=== PATIENT | female | born 1945 | race Caucasian/White ===

== ENCOUNTER 2022-10-06 13:57 | Outpatient (OUT) | payer OTHER, SELFPAY ==
--- NOTE | 2022-10-06 14:17 | XR_ITS ---
The [address] [address] Patient Name: DELFINA GONZALEZ MRN: [id number] date: 1945 Sex: F Assigned Patient Location: LAB Current Patient Location: LAB Accession/Order Number: [id number] Exam Date: 10/06/2022 14:30 Report Date: 10/06/2022 14:48 At the request of: SUZE JOHNSON Procedure: XR abdomen 1V EXAMINATION: XR abdomen 1V HISTORY: Constipation K59.00 alternating with diarrhea for 2 months COMPARISON: No relevant comparison available. FINDINGS: BOWEL GAS PATTERN: No abnormal dilation or deviation. Moderate stool burden. CALCIFICATIONS: None significant. OTHER: Negative. No abnormal gaseous collections. XR/XR abdomen 1V IMPRESSION: 1. No abnormal or suspicious findings to account for patient's symptoms. Electronically authenticated by: RAMEZ CHAN Date: 10/06/2022 14:48
[2022-10-06 16:06] LABS: Alanine Aminotransferase 31 U/L (14-59); Albumin Globulin Ratio 1.1; Albumin Level 3.7 g/dL (3.4-5.0); Alkaline Phosphatase 113 U/L (46-116); Aspartate Amino Transferase 23 U/L (15-37); BUN Creatinine Ratio 22.6; Bilirubin Total 1.3 mg/dL (0.2-1.0); Calcium 9.9 mg/dL (8.5-10.1); Carbon Dioxide 28.4 mmol/L (21.0-32.0); Chloride 105 mmol/L (98-107); Estimated GFR (African America >60 (>=60); Estimated GFR (Non-African Ame >60 (>=60); Globulin 3.5 g/dL; Glucose 95 mg/dL (74-106); Potassium 4.4 mmol/L (3.5-5.1); Sodium 140 mmol/L (136-145); Total Protein 7.2 g/dL (6.4-8.2)
== END 2022-10-06 13:58 | disposition home or self-care (01) ==
LOC: LAB 14:02
PROVIDERS: PCP Nurse Practitioner Family; Visit Provider Nurse Practitioner Family
DX: K59.00 Constipation, unspecified (principal)
CPT/HCPCS: 36415; 74018; 80053

== ENCOUNTER 2023-06-02 22:02 | Emergency (ER) | payer OTHER, SELFPAY ==
[2023-06-02 22:05] VITALS: BP 180/111; PULSE 86; RESP 22; TEMP 36.7; O2SAT 93; BMI 32.4
[2023-06-02 22:14] VITALS: BP 158/78
--- NOTE | 2023-06-02 22:16 | PC.NURSE ---
bilateral flank pain, L>R that started today, hx of kidney stones. No urinary sx. Admits to some nausea. Has not taken anything for the pain .
[2023-06-02 22:31] LABS: Bilirubin Urine NEGATIVE (NEGATIVE); Blood Urine LARGE (NEGATIVE); Clarity Urine CLEAR (CLEAR); Color Urine LT. YELLOW (YELLOW); Glucose Urine UA NEGATIVE (NEGATIVE); Ketones Urine NEGATIVE (NEGATIVE); Leukocyte Esterase Urine TRACE (NEGATIVE); Nitrite Urine POSITIVE (NEGATIVE); Protein Urine NEGATIVE (NEG/TRACE); Urobilinogen Urine 0.2 EU/dL (0.2-1.0)
[2023-06-02 22:32] LABS: Urine Microscopic Indicated YES
--- NOTE | 2023-06-02 22:40 | ED.FEMALEGU1 ---
HPI - Female Genitourinary General Chief complaint: Urogenital-Female Stated complaint: BACK PAIN IN KIDNEY AREA Time Seen by Provider: 06/02/23 22:16 Source: patient Mode of arrival: walk-in Limitations: no limitations History of Present Illness HPI Narrative: presents complaining of left CVA pain. States pain similar to past kidney stones. Nausea but no vomiting. No fever , dysuria or hematuria Related Data Home Medications ?Medication ?Instructions ?Recorded ?Confirmed aspirin 81 mg capsule 81 mg PO DAILY 06/02/23 06/02/23 cholecalciferol (vitamin D3) 125 125 mcg PO DAILY 06/02/23 06/02/23 mcg (5,000 unit) capsule diclofenac sodium 75 mg 75 mg PO Q12H 06/02/23 06/02/23 tablet,delayed release losartan 100 mg tablet 100 mg PO DAILY 06/02/23 06/02/23 metoprolol tartrate 25 mg tablet 25 mg PO Q12H 06/02/23 06/02/23 rosuvastatin 40 mg tablet 40 mg PO DAILY 06/02/23 06/02/23 Allergies Allergy/AdvReac Type Severity Reaction Status Date / Time No Known Drug Allergies Allergy Verified 06/02/23 22:09 Review of Systems ROS Status of ROS 10 or more systems reviewed and unremarkable except as noted in history and below Exam Constitutional Vital Signs, click to edit/add: Last Vital Signs Temp 98.0 F 06/02/23 22:05 Pulse 86 06/02/23 22:05 BP 158/78 H 06/02/23 22:14 Pulse Ox 93 L 06/02/23 22:05 O2 Del Method Room Air 06/02/23 22:05 Common normals: no apparent distress, average body habitus, oriented x3, no limitations, healthy appearing, alert and well nourished Eye Common normals: PERRL, EOMs intact bilaterally and conjunctivae normal Respiratory Common normals: normal respiratory effort, no retractions, no use of accessory muscles and clear to auscultation bilaterally Cardio Common normals: regular rate, regular rhythm, S1 normal heart sound and S2 normal heart sound GI Common normals: Normal to inspection, nondistended, normoactive bowel sounds present, soft to palpation and non-tender Back & Pelvis General back: CVA tenderness CVA tenderness: left Extremity Common normals: normal to inspection and full ROM Neuro Common normals: oriented x3, CN's II-XII intact bilaterally, moves all extremities and no focal motor deficits Psych Appearance: grossly normal Course Vital Signs Vital signs: Vital Signs Temperature 98.0 F 06/02/23 22:05 Pulse Rate 86 06/02/23 22:05 Blood Pressure 180/111 H 06/02/23 22:05 Pulse Oximetry 93 L 06/02/23 22:05 Oxygen Delivery Method Room Air 06/02/23 22:05 Temperature 98.0 F 06/02/23 22:05 Pulse Rate 86 06/02/23 22:05 Blood Pressure 158/78 H 06/02/23 22:14 Pulse Oximetry 93 L 06/02/23 22:05 Oxygen Delivery Method Room Air 06/02/23 22:05 MDM - Female Genitourinary MDM Narrative Medical decision making narrative: patient presents complaining of left CVA pain. No fever or urinary symptoms. CT with small 2mm left ureter stone. UA infected. Patient afebrile. Patient given dose of rocephin and discharged home with Bactrim ds and flomax. Informed of the findings and the importance of close follow up because she also has an infection. Advised to see her Urologist sunday. Return if increasing pain, fever Lab Data Labs: Lab Results 06/02/23 06/02/23 Range/Units 22:16 23:00 WBC 14.6 H (4.0-11.0) 10^3/uL RBC 4.40 (4.20-5.40) 10^6/uL Hgb 13.7 (12.0-16.0) g/dL Hct 43.2 (36.0-48.0) % MCV 98.2 (81.0-99.0) fL MCH 31.1 (26.7-34.0) pg MCHC 31.7 (29.9-35.2) g/dL RDW 12.8 (11.0-15.0) % Plt Count 178 (150-450) 10^3/uL MPV 9.8 (9.5-13.5) fL Seg Neuts % (Manual) 80.0 Band Neutrophils % 4.0 (0-5) % Lymphocytes % (Manual) 2.0 L (20.5-60.0) % Atypical Lymphs % (Man) 4.0 % Monocytes % (Manual) 10.0 (1.7-12.0) % Eosinophils % (Manual) 0.0 L (0.9-7.0) % Basophils % (Manual) 0.0 L (0.2-2.0) % Neutrophils # (Manual) 11.68 H (1.4-6.5) 10^3/uL Band Neutrophils # 0.6 H (0.0-0.3) 10^3/uL Lymphocytes # (Manual) 0.29 L (1.20-3.80) 10^3/uL Abs Atypical Lymphs Man 0.58 Monocytes # (Manual) 1.46 H (0.30-0.80) 10^3/uL Eosinophils # (Manual) 0.00 (0.00-0.70) 10^3/uL Basophils # (Manual) 0.00 (0.00-0.10) 10^3/uL Lactate 1.8 (0.4-2.0) mmol/L Urine Color Lt. yellow (YELLOW) Urine Clarity Clear (CLEAR) Urine pH 6.0 (5.0-9.0) Ur Specific [place] 1.020 (1.005-1.025) Urine Protein Negative (NEG/TRACE) mg/dL Urine Glucose (UA) Negative (NEGATIVE) mg/dL Urine Ketones Negative (NEGATIVE) mg/dL Urine Occult Blood Large A (NEGATIVE) Urine Nitrite Positive A (NEGATIVE) Urine Bilirubin Negative (NEGATIVE) Urine Urobilinogen 0.2 (0.2-1.0) EU/dL Ur Leukocyte Esterase Trace A (NEGATIVE) Urine RBC 50-75 A (0-2) #/HPF Urine WBC 10-20 A (NONE SEEN) #/HPF Ur Squamous Epith Cells Rare (NONE/RARE) #/LPF Urine Crystals None seen (None Seen) #/HPF Amorphous Sediment Rare Urine Bacteria Large A (NONE SEEN) #/HPF Urine Casts None seen (NONE SEEN) #/LPF Urine Mucus None seen (NONE SEEN) Ur Culture Indicated? Yes Imaging Data Chest x-ray: Radiologist's impression: ITS Impressions Abdomen/Pelvis CT 06/02/23 22:42 IMPRESSION: 1. There is a 2 mm calculus in the mid left ureter with mild left hydroureter and hydronephrosis. 2. Bilateral nonobstructive renal calculi. 3. Status post cholecystectomy. 4. Colonic diverticulosis without evidence of acute inflammation. 5. The appendix is not seen and could be surgically absent. 6. Urinary bladder wall thickening with a couple tiny foci of air. Please correlate with urinalysis for infection. Electronically authenticated by: [place] Date: 06/02/2023 23:39 Discharge Plan Discharge Stand Alone Forms: Portal Instructions Chief Complaint: Urogenital-Female Clinical Impression: Urinary tract infection, Kidney stone on left side Patient Disposition: Home, Self-Care Prescriptions / Home Meds: No Action losartan 100 mg tablet 100 mg PO DAILY metoprolol tartrate 25 mg tablet 25 mg PO Q12H rosuvastatin 40 mg tablet 40 mg PO DAILY diclofenac sodium 75 mg tablet,delayed release (DR/EC) 75 mg PO Q12H aspirin 81 mg capsule 81 mg PO DAILY cholecalciferol (vitamin D3) 125 mcg (5,000 unit) capsule 125 mcg PO DAILY Print Language: Slovak Instructions: Kidney Stones (ED), Urinary Tract Infection in Older Adults (ED) Additional Instructions: follow up with your urologist Sunday. Return to the ER if increasing pain, fever or nausea/vomiting Referrals: SUZE JOHNSON [Primary Care Provider] - 1 week Discharge Date/Time: 06/03/23 00:50
[2023-06-02 22:41] LABS: RBC Urine 50-75 #/HPF (0-2)
[2023-06-02 22:42] LABS: Bacteria Urine LARGE #/HPF (NONE SEEN); Crystals Seen? None Seen #/HPF (None Seen); Mucus Urine NONE SEEN (NONE SEEN); Squamous Epithelial Cell Urine RARE #/LPF (NONE/RARE)
--- NOTE | 2023-06-02 22:42 | CT_ITS ---
The [address] [address] Patient Name: DELFINA GONZALEZ MRN: [id number] date: 1945 Sex: F Assigned Patient Location: ER Current Patient Location: ER Accession/Order Number: [id number] Exam Date: 06/02/2023 23:04 Report Date: 06/02/2023 23:39 At the request of: RUTHY BRADLEY Procedure: CT abdomen pelvis wo con EXAM: CT abdomen pelvis wo con HISTORY: left renal colic COMPARISON: CT abdomen and pelvis examination dated 10/11/2020. TECHNIQUE: Noncontrast axial CT images through the abdomen and pelvis were obtained with coronal and sagittal reformats. Dose reduction techniques were achieved by using automated exposure control and/or adjustment of mA and/or kV according to patient size and/or use of iterative reconstruction technique. FINDINGS: There is bibasilar linear atelectasis and/or scarring. There is coronary artery disease. There is a small hiatal hernia. Abdomen: Please note that the sensitivity for detection of focal lesions or vascular disease is markedly reduced without intravenous contrast. The spleen is unremarkable. A hepatic cyst is noted. There is no intra or extrahepatic biliary duct dilatation. The gallbladder is surgically absent. There are bilateral nonobstructive renal calculi measuring up to 3 mm on the right. There is a 2 mm calculus in the mid left ureter with mild left hydroureter and hydronephrosis. There is colonic diverticulosis without evidence of acute inflammation. The appendix is not seen. Otherwise, the pancreas, adrenal glands, and bowel loops are unremarkable. There is no mesenteric or retroperitoneal lymphadenopathy. Pelvis: The bladder demonstrates mild wall thickening with a couple tiny foci of air. The rectum is unremarkable. There is no iliac or inguinal lymphadenopathy. The uterus is present. The left ovary appears within normal limits by CT and for the patient's age. The right ovary is not clearly seen. There is mild to moderate atherosclerotic disease. Bone windows show no aggressive osseous lesions. CT/CT abdomen pelvis wo con IMPRESSION: 1. There is a 2 mm calculus in the mid left ureter with mild left hydroureter and hydronephrosis. 2. Bilateral nonobstructive renal calculi. 3. Status post cholecystectomy. 4. Colonic diverticulosis without evidence of acute inflammation. 5. The appendix is not seen and could be surgically absent. 6. Urinary bladder wall thickening with a couple tiny foci of air. Please correlate with urinalysis for infection. Electronically authenticated by: [place] Date: 06/02/2023 23:39
[2023-06-02 22:43] LABS: Amorphous Sediment Urine RARE; Cast Seen? NONE SEEN #/LPF (NONE SEEN); Urine Culture Indicated YES
[2023-06-02 23:12] LABS: Hematocrit 43.2 % (36.0-48.0); Hemoglobin 13.7 g/dL (12.0-16.0); Mean Corpuscular HGB Conc 31.7 g/dL (29.9-35.2); Mean Corpuscular Hemoglobin 31.1 pg (26.7-34.0); Mean Corpuscular Volume 98.2 fL (81.0-99.0); Mean Platelet Volume 9.8 fL (9.5-13.5); Platelet Count 178 10^3/uL (150-450); Red Cell Distribution Width 12.8 % (11.0-15.0); White Blood Count 14.6 10^3/uL (4.0-11.0)
[2023-06-02 23:37] LABS: Band Neutrophils Absolute 0.6 10^3/uL (0.0-0.3); Lactate/Lactic Acid 1.8 mmol/L (0.4-2.0); Lymphocytes Absolute Manual 0.29 10^3/uL (1.20-3.80); Segmented Neut Absolute Manual 11.68 10^3/uL (1.4-6.5)
[2023-06-02] MEDS: ORPHENADRINE 60 MG/ 2 ML VIAL IV (23:37)
[2023-06-02] MEDS: KETOROLAC TROMETHAMINE 30 MG/ML VIAL IVP (23:37)
[2023-06-02] MEDS: 0.9 % SODIUM CHLORIDE 1,000 ML 999 ML IV (23:37)
[2023-06-02] MEDS: ONDANSETRON PF 4 MG/2 ML VIAL IV (23:37)
[2023-06-02 23:38] LABS: Atypical Lymphocytes Abs Man 0.58; Monocytes Absolute Manual 1.46 10^3/uL (0.30-0.80)
[2023-06-03] MEDS: CEFTRIAXONE 1,000 MG in 0.9 % SODIUM CHLORIDE 50 ML 100 MG IV (00:08)
[2023-06-03] MEDS: TAMSULOSIN HCL 0.4 MG CAPSULE 0.400000000000000022 MG PO (00:43)
== END 2023-06-03 00:50 | disposition home or self-care (01) ==
PROVIDERS: Emergency Provider Internal Medicine; PCP Nurse Practitioner Family
DX: N13.6 Pyonephrosis (principal); Z87.442 Personal history of urinary calculi; Z79.82 Long term (current) use of aspirin; Z79.899 Other long term (current) drug therapy
CPT/HCPCS: 36415; 74176; 81001; 83605; 85007; 85027; 87086; 87150; 87186; 96365; 96375; 99284

== ENCOUNTER 2023-08-09 08:34 | Outpatient (OUT) | payer OTHER, SELFPAY ==
[2023-08-09 09:38] LABS: Estimated Average Glucose 131 mg/dL; Glycohemoglobin A1C 6.2 % (4.5-6.2)
[2023-08-09 09:59] LABS: Alanine Aminotransferase 34 U/L (14-59); Albumin Globulin Ratio 1.1; Albumin Level 3.6 g/dL (3.4-5.0); Alkaline Phosphatase 127 U/L (46-116); Anion Gap 11.2; Aspartate Amino Transferase 22 U/L (15-37); BUN Creatinine Ratio 24.1; Bilirubin Total 1.8 mg/dL (0.2-1.0); Calcium 9.8 mg/dL (8.5-10.1); Chloride 106 mmol/L (98-107); Chol HDL Ratio 3.1; Cholesterol 135 mg/dL (<=200); Estimated GFR (African America >60 (>=60); Estimated GFR (Non-African Ame >60 (>=60); Free T3 1.62 pg/mL (2.18-3.98); Globulin 3.4 g/dL; Glucose 111 mg/dL (74-106); HDL Cholesterol 44 mg/dL (40-60); LDL Cholesterol Calculated 74.8 mg/dL; Potassium 4.2 mmol/L (3.5-5.1); Sodium 144 mmol/L (136-145); Thyroid Stimulating Hormone 1.512 uIU/mL (0.358-3.740); Triglycerides 81 mg/dL (<=150); VLDL CHOLESTEROL 16.2 mg/dL
[2023-08-09 10:11] LABS: Basophils Percent Auto 0.7 % (0.2-2.0); Eosinophils Absolute Auto 0.2 10^3/uL (0.0-0.7); Eosinophils Percent Auto 2.9 % (0.9-7.0); Hematocrit 44.1 % (36.0-48.0); Hemoglobin 13.8 g/dL (12.0-16.0); Immature Granulocytes Abs Auto 0.02 10^3/uL (0.00-0.03); Immature Granulocytes Pct Auto 0.4 % (0.0-0.5); Lymphocytes Absolute Auto 1.6 10^3/uL (1.2-3.8); Lymphocytes Percent Auto 28.5 % (20.5-60.0); Mean Corpuscular HGB Conc 31.3 g/dL (29.9-35.2); Mean Corpuscular Hemoglobin 31.2 pg (26.7-34.0); Mean Corpuscular Volume 99.5 fL (81.0-99.0); Mean Platelet Volume 10.3 fL (9.5-13.5); Monocytes Absolute Auto 0.5 10^3/uL (0.3-0.8); Monocytes Percent Auto 8.7 % (1.7-12.0); Neutrophils Absolute Auto 3.2 10^3/uL (1.4-6.5); Neutrophils Percent Auto 58.8 % (43.0-75.0); Platelet Count 218 10^3/uL (150-450); Red Blood Count 4.43 10^6/uL (4.20-5.40); Red Cell Distribution Width 13.2 % (11.0-15.0); White Blood Count 5.5 10^3/uL (4.0-11.0)
== END 2023-08-09 08:35 | disposition home or self-care (01) ==
LOC: LAB 08:35
PROVIDERS: PCP Nurse Practitioner Family; Visit Provider Nurse Practitioner Family
DX: R06.02 Shortness of breath (principal); E78.5 Hyperlipidemia, unspecified; R53.83 Other fatigue; R73.09 Other abnormal glucose; I10 Essential (primary) hypertension; D64.9 Anemia, unspecified
CPT/HCPCS: 36415; 80053; 80061; 82306; 83036; 83525; 83540; 84436; 84443; 84481; 85025

== ENCOUNTER 2023-09-04 08:16 | Outpatient (OUT) | payer OTHER, SELFPAY ==
--- NOTE | 2023-09-04 08:00 | NM_ITS ---
Patient Name: DELFINA GONZALEZ MR#: [id number] : 1945 Exam Date: 09/04/2023 Ordering Doctor: SUZE JOHNSON CNP RADIOLOGY REPORT PROCEDURE: NM JANIS PERF SPECT REST STR COMPARISON: None. INDICATIONS: CHEST PAIN, DYSPNEA TECHNIQUE: Exam Description: Stress/Rest one day protocol gated SPECT Rest Imagin.6 mCi Tc-99m Cardiolite IV on 09/04/2023 Stress Imaging 30.4 mCi Tc-99m Cardiolite IV on 09/04/2023 Exercise Protocol: 0.4 mg Lexiscan given IV Heart Rate (bpm): Rest: 52 Max: 85 PMHR: 59 Blood Pressure: Rest: 184/104 Max: 184/104 Symptoms: chest tightness, shortness of breath Rest and peak stress ECG findings were abnormal and the exercise portion of the study was Non-diagnostic per attending physician Dr. Anne . For more details please see separate cardiac stress test report. FINDINGS: QUALITY OF STUDY: PERFUSION DEFECT: LOCATION: Mid-anteroseptal. Apical anterior. SIZE: Small (1-2 segments). SEVERITY: Mild. TYPE: Persistent. WALL MOTION: Normal. LV SIZE: Normal. 97 mL. TID / TCD: None; 1.0 LVEF: Normal. Calculated EF 65%. SUMMARY: Myocardial perfusion imaging study has ABNORMAL findings. CONCLUSION: 1. Small area of mildly decreased uptake identified on stress images in the anterior wall stable on rest images possibly breast attenuation 2. No reversible ischemia 3. Abnormal exercise test secondary to EKG changes Dictated by: Bello Germain MD on 09/04/2023 at 14:44 Approved by: Bello Germain MD on 09/04/2023 at 14:46
--- OUTSIDE RECORDS SUMMARY | 2023-09-04 08:19 | XMS_ITS | CCD ---
Author Organization [facility] Care Team Providers Care Immigration Consultant Name Role Phone Unavailable Unavailable Mateus Meeks Unavailable SUZE JOHNSON Primary Care Unavailable MARKER, DR OCHOA Admitting Unavailable MARKER, DR OCHOA Attending Unavailable MARKER, DR OCHOA Consulting Unavailable ELDRIDGEHAMZAH Consulting Unavailable ELIZABETH, SUZE Admitting Unavailable ELIZABETH, SUZE Attending Unavailable ELIZABETH, SUZE Primary Care Unavailable ELIZABETH, SUZE Admitting Unavailable ELIZABETH, SUZE Attending Unavailable ELIZABETH, SUZE Primary Care Unavailable ROCIO, DR RAMEZ Knight Consulting Unavailable ELIZABETH, SUZE Consulting Unavailable ELIZABETH, SUZE Primary Care Unavailable MAMTA GODINEZ Admitting Unavailable MAMTA GODINEZ Attending Unavailable ROCIO, DR RAMEZ Knight Consulting Unavailable MAMTA GODINEZ Consulting Unavailable YVAN FLORES Consulting Unavailable SUZE JOHNSON Primary Care Physician [phone] LAURA FOX Referring Unavailable Jeanie Hennessy Attending Unavailable OrJeanie king Admitting Unavailable OrJeanie king Attending Unavailable Medications Current Medications Medication Drug Class(es) Dates Sig (Normalized) Sig (Original) acetaminophen 500 mg oral tablet (2 sources) Start: 11-02-2020 take 2 tablets by mouth every six hours as needed for pain Tylenol Extra Strength 500 mg oral tablet 1,000 mg = 2 tab(s), Oral, q6hr, PRN as needed for pain, Refills(s) 0 Start Date: 11/02/20 Status: Ordered aspirin 81 mg oral tablet (7 sources) Platelet Aggregation Inhibitor, Nonsteroidal Anti-inflammatory Drug Start: 11-04-2015 take 81 mg by mouth once daily aspirin 81 mg, Oral, Daily, Refills(s) 0, Blood Thinner Start Date: 11/04/15 Status: Ordered Aspirin EC 81 MG TBE TAKE 1 TABLET Daily Quantity: 90 Refills: 3 Ordered: 08-Dec-2021 Riky Benavidez DO Active Calcium Citrate / Vitamin D (2 sources) Start: 11-02-2020 take 1 tablet by mouth once daily calcium-vitamin D 1 tab, Oral, Daily, Refill(s) 0, Prophylaxis Start Date: 11/02/20 Status: Ordered losartan potassium 100 mg oral tablet (7 sources) Angiotensin 2 Receptor Shantelle Start: 09-28-2020 take 1 tablet by mouth once daily losartan 100 mg Tab 100 mg = 1 tab(s), Oral, Daily, Refills(s) 0, High blood pressure Start Date: 11/02/20 Status: Ordered rosuvastatin calcium 40 mg oral tablet (7 sources) HMG-CoA Reductase Inhibitor Start: 11-02-2020 take 1 tablet by mouth once daily rosuvastatin 40 mg Tab 40 mg = 1 tab(s), Oral, Daily, Refills(s) 0, High cholesterol Start Date: 11/02/20 Status: Ordered Completed/Discontinued Medications Medication Drug Class(es) Dates Sig (Normalized) Sig (Original) cholecalciferol 0.125 mg oral capsule (5 sources) Vitamin D take 1 capsule by mouth once daily Vitamin D3 125 MCG (5000 UT) Oral Capsule TAKE 1 CAPSULE Daily Quantity: 0 Refills: 0 Ordered: 08-Dec-2021 DO Active diclofenac sodium 75 mg delayed release oral tablet (5 sources) Nonsteroidal Anti-inflammatory Drug take 1 tablet by mouth once daily Diclofenac Sodium 75 MG Oral Tablet Delayed Release Take 1 tablet daily Quantity: 90 Refills: 1 Ordered: 08-Dec-2021 DO Active metoprolol tartrate 25 mg oral tablet (8 sources) beta-Adrenergic Shantelle Start: 01-06-2021 take 1 tablet by mouth twice daily Metoprolol Tartrate 25 MG Oral Tablet Take 1 tablet twice daily Quantity: 25 Refills: 1 Ordered: 05-May-2022 Riky Benavidez DO Start : 06-Jan-2021 Active Start: 11-02-2020 take 1 tablet by natalee twice daily metoprolol 25 mg ER Tab 25 mg = 1 tab(s), Oral, BID, Refills(s) 0, High blood pressure Start Date: 11/02/20 Status: Ordered Problems Active Problems Problem Classification Problem Date Documented Date Episodic/Chronic Acute myocardial infarction (2 sources) Myocardial infarction 11-02-2020 Chronic Calculus of urinary tract (6 sources) Personal history of urinary calculi; Translations: [Kidney stone] Onset: 07-11-2021 Episodic Conditions associated with dizziness or vertigo (2 sources) Vertigo 11-02-2020 Episodic Coronary atherosclerosis and other heart disease (14 sources) Coronary arteriosclerosis; Translations: [Coronary atherosclerosis of unspecified type of vessel, united keetoowah or graft] Onset: 12-19-2021 11-02-2020 Chronic Diabetes mellitus without complication (1 source) Other abnormal glucose; Translations: [OTHER ABNORMAL GLUCOSE] Onset: 12-16-2021 Episodic Disorders of lipid metabolism (12 sources) Hyperlipidemia; Translations: [Other and unspecified hyperlipidemia] Onset: 12-14-2021 Chronic Essential hypertension (9 sources) Hypertensive disorder; Translations: [Unspecified essential hypertension] Onset: 12-19-2021 05-12-2015 Chronic Genitourinary symptoms and ill-defined conditions (1 source) Microscopic hematuria; Translations: [Other microscopic hematuria] Onset: 07-16-2023 Episodic Nutritional deficiencies (1 source) Vitamin D deficiency, unspecified; Translations: [VITAMIN D DEFICIENCY UNSPECIFIED] Onset: 12-16-2021 Chronic Osteoarthritis (3 sources) Unspecified osteoarthritis, unspecified site; Translations: [Arthritis] Onset: 12-19-2021 11-02-2020 Chronic Other aftercare (1 source) long term care social worker (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; Translations: [INDEPENDENT SALES REPRESENTATIVE CURRENT USE OF ASPIRIN] Onset: 12-19-2021 Episodic Other aftercare (1 source) 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; Translations: [OTH INDEPENDENT SALES REPRESENTATIVE CURRENT DRUG THERAPY] Onset: 12-19-2021 Episodic Other and ill-defined heart disease (2 sources) Heart disease 11-02-2020 Chronic Other connective tissue disease (3 sources) Other specified soft tissue disorders; Translations: [OTHER SPEC SOFT TISSUE DISORDERS] Onset: 12-18-2021 Episodic Other connective tissue disease (1 source) Pain in right leg; Translations: [PAIN IN RIGHT LEG] Onset: 12-19-2021 Episodic Other connective tissue disease (1 source) Pain in right lower leg; Translations: [PAIN IN RIGHT LOWER LEG] Onset: 12-16-2021 Episodic Other connective tissue disease (2 sources) H/O: osteoarthritis 05-12-2015 Episodic Other diseases of kidney and ureters (2 sources) Hydronephrosis 11-02-2020 Episodic Other non-traumatic joint disorders (1 source) Pain in right knee; Translations: [PAIN IN RIGHT KNEE] Onset: 12-16-2021 Episodic Other nutritional; endocrine; and metabolic disorders (5 sources) Obesity; Translations: [Obesity, unspecified] Chronic Other nutritional; endocrine; and metabolic disorders (2 sources) Body mass index 30+ - obesity 11-02-2020 Chronic Residual codes; unclassified (1 source) Acquired absence of other specified parts of digestive tract; Translations: [ACQ ABSENCE OTH PART DIGESTV TRACT] Onset: 12-19-2021 Episodic Residual codes; unclassified (1 source) Localized edema; Translations: [LOCALIZED EDEMA] Onset: 12-19-2021 Episodic Unclassified (2 sources) Long-term current use of aspirin 11-02-2020 Past or Other Problems Problem Classification Problem Date Documented Da te Episodic/Chronic Coronary atherosclerosis and other heart disease (1 source) Presence of coronary angioplasty implant and graft; Translations: [PRESENCE COR ANGPLSTY IMPLANT AND GRAFT] Onset: 07-11-2021 Episodic E Codes: Struck by; against (1 source) Striking against other object with subsequent fall, initial encounter; Translations: [STRIK AGNST OTH OBJ SBSQT FALL INIT] Onset: 07-11-2021 Episodic Other non-traumatic joint disorders (3 sources) Pain in right shoulder; Translations: [PAIN IN RIGHT SHOULDER] Onset: 07-08-2021 Episodic Superficial injury; contusion (2 sources) Contusion of right shoulder, initial encounter; Translations: [Contusion of right elbow, initial encounter] Onset: 07-11-2021 Episodic Unclassified (5 sources) Never smoked tobacco; Translations: [Never a smoker] Results Test Name Value Interpretation Reference Range Facility Patient Correspondenceon Patient Correspondence [id number]# 1.00TIFF Normal [facility] Calculus Analysison 07-26-19 Calcium oxalate dihydrate Infrared spectroscopy (Stone) [Mass fraction] 50 % Invalid Interpretation Code [facility] Comment on above: Performed By: #### 1 [id number] #### [facility] [address] [place] [address] Calcium oxalate monohydrate (Stone) [Mass fraction] 30 % Invalid Interpretation Code [facility] Comment on above: Performed By: #### 1 [id number] #### [facility] [address] [place] [address] Calculus analysis [Interp] Comment Invalid Interpretation Code [facility] Comment on above: Result Comment: Calc ium phosphate (hydroxyl form) includes hydroxyapatite, amorphous calcium phosphate, and whitlockite. Hydroxyapatite is the most common of the calcium phosphate salts found in human kidney stones. Performed By: #### 1 [id number] #### [facility] [address] [place] [address] Color (Stone) Alatorre Invalid Interpretation Code [facility] Comment on above: Performed By: #### 1 [id number] #### [facility] [address] [place] [address] Composition Comment Invalid Interpretation Code [facility] Comment on above: Result Comment: Perc entage (Represents the % composition) Performed By: #### 1 [id number] #### [facility] [address] [place] [address] Disclaimer: Comment Invalid Interpretation Code [facility] Comment on above: Result Comment: This test was developed and its performance characteristics determined by [employer]. It has not been cleared or approved by the Food and Drug Administration. Performed at: [address] [id number] PhD Angelica Boyd Performed By: #### 1 [id number] #### [facility] [address] [place] [address] Hydroxyapatite: 20 % Invalid Interpretation Code [facility] Comment on above: Performed By: #### 1 [id number] #### [facility] [address] [place] [address] Laboratory comment Maynor (Report) Comment Invalid Interpretation Code [facility] Comment on above: Result Comment: Phys aprilan questions regarding Calculi Analysis contact [facility] at: [phone]. Performed By: #### 1 [id number] #### [facility] [address] [place] [address] Please Note: Comment Invalid Interpretation Code [facility] Comment on above: Result Comment: Calc evonne report will follow via computer, mail or air conditioning mechanic delivery. Performed By: #### 1 [id number] #### [facility] [address] [place] [address] Size (Stone) [Entitic vol] 6x3 Invalid Interpretation Code [facility] Comment on above: Result Comment: Sing le piece received. Performed By: #### 1 [id number] #### [facility] [address] [place] [address] Specimen source subject Nom Comment Invalid Interpretation Code [facility] Comment on above: Result Comment: Not provided Performed By: #### 1 [id number] #### [facility] [address] [place] [address] Stone Photo Comment Invalid Interpretation Code [facility] Comment on above: Result Comment: Phot ograph will follow under a separate cover Performed By: #### 1 [id number] #### [facility] [address] [place] [address] Weight (Stone) 19 mg Invalid Interpretation Code [facility] Comment on above: Performed By: #### 1 [id number] #### [facility] [address] [place] [address] Screenson 07-20-2023 Screens [id number]# 1.00TIFF Normal [facility] Ambulatory Visit Summaryon 0 07-19-2023 Ambulatory Visit Summary DELFINA GONZALEZ :1945 Visit Date:07/19/2023 Ambulatory Visit Instructions Your Diagnosis Kidney stone Microhematuria Your Care Team Attending Physician - ERNESTINE Hennessy APRN, Jeanie Crowder Primary Care Physician - SUZE JOHNSON CNP This Is Your Medications List acetaminophen (Tylenol Extra Strength 500 mg oral tablet) aspirin calcium-vitamin D losartan (losartan 100 mg Tab) metoprolol (metoprolol 25 mg ER Tab) rosuvastatin (rosuvastatin 40 mg Tab) Procedures Performed Cystoscopic removal of ureteric stent (01/03/2021), Cystoscopy (12/15/2020), ESWL (extracorporeal shockwave lithotripsy) of ureteric calculus (11/25/2020), ESWL - Extracorporeal shockwave lithotripsy for renal calculus (11/25/2020), Cystoscopic removal of ureteric stent (11/05/2020), Cystoscopy (10/11/2020), MEDIAL BRANCH BLOCK (11/17/2015), Injection of facet joint using fluoroscopic guidance (06/07/2015), Cholecystectomy, history of cervical vertebral fracture, Percutaneous angioplasty of coronary artery, Tubal ligation. Discharge Vitals Temperature (Temporal Artery) 37 ?C Respiratory Rate 14 Height 165.0 cm Height 65 in Weight 94.1 kg Weight 207.02 lb BMI 34.56 Medications What How Much When Instructions Unchanged acetaminophen (Tylenol Extra Strength 500 mg oral tablet) 2 Tablets By Mouth Every 6 hours as needed for as needed for pain Unchanged aspirin 81 Milligram By Mouth Every day Unchanged calcium-vitamin D 1 tab By Mouth Every day Unchanged losartan (losartan 100 mg Tab) 1 Tablets By Mouth Every day Unchanged metoprolol (metoprolol 25 mg ER Tab) 1 Tablets By Mouth 2 times a day Unchanged rosuvastatin (rosuvastatin 40 mg Tab) 1 Tablets By Mouth Every day Medications and Immunizations Administered Not Given influenza virus vaccine, inactivated, Patient Refuses Allergies No Known Allergies Problems Ongoing - Any problem that you are currently receiving treatment for. Arthritis Aspirin long-term use BMI 33.0-33.9,adult CAD (coronary artery disease) Heart attack Heart disease High cholesterol History of osteoarthritis HTN (hypertension) Hydronephrosis Kidney stone Ureteral stone Vertigo Patient Survey You may receive a survey via text or e-mail asking about your office visit. Please share your experience with us by completing your survey. We appreciate your feedback and thank you for choosing us for your care. [facility] Formson 07-19-2023 Forms [id number] #1.00TIFF [facility] Patient Educationon 07-19-19 24 Patient Education Nephrology Dietary Guidelines to Help Prevent Kidney Stones Kidney stones are deposits of minerals and salts that form inside your kidneys. Your risk of developing kidney stones may be greater depending on your diet, your lifestyle, the medicines you take, and whether you have certain medical conditions. Most people can lower their risks of developing kidney stones by following these dietary guidelines. Your dietitian may give you more specific instructions depending on your overall health and the type of kidney stones you tend to develop. What are tips for following this plan? Reading food labels ? Choose foods with no salt added or low-salt labels. Limit your salt (sodium) intake to less than 1,500 mg a day. ? Choose foods with calcium for each meal and snack. Try to eat about 300 mg of calcium at each meal. Foods that contain 200?500 mg of calcium a serving include: ? 8 oz (237 mL) of milk, calcium-fortifiednon -dairy milk, and calcium-fortifiedfru it juice. Calcium-fortified means that calcium has been added to these drinks. ? 8 oz (237 mL) of kefir, yogurt, and soy yogurt. ? 4 oz (114 g) of tofu. ? 1 oz (28 g) of cheese. ? 1 cup (150 g) of dried figs. ? 1 cup (91 g) of cooked broccoli. ? One 3 oz (85 g) can of sardines or mackerel. Most people need 1,000?1,500 mg of calcium a day. Talk to your dietitian about how much calcium is recommended for you. Shopping ? Buy plenty of fresh fruits and vegetables. Most people do not need to avoid fruits and vegetables, even if these foods contain nutrients that may contribute to kidney stones. ? When shopping for convenience foods, choose: ? Whole pieces of fruit. ? Pre-made salads with dressing on the side. ? Low-fat fruit and yogurt smoothies. ? Avoid buying frozen meals or prepared deli foods. These can be high in sodium. ? Look for foods with live cultures, such as yogurt and kefir. ? Choose high-fiber grains, such as whole-wheat breads, oat bran, and wheat cereals. Cooking ? Do not add salt to food when cooking. Place a salt shaker on the table and allow each person to add their own salt to taste. ? Use vegetable protein, such as beans, textured vegetable protein (TVP), or tofu, instead of meat in pasta, casseroles, and soups. Meal planning ? Eat less salt, if told by your dietitian. To do this: ? Avoid eating processed or pre-made food. ? Avoid eating fast food. ? Eat less animal protein, including cheese, meat, poultry, or fish, if told by your dietitian. To do this: ? Limit the number of times you have meat, poultry, fish, or cheese each week. Eat a diet free of meat at least 2 days a week. ? Eat only one serving each day of meat, poultry, fish, or seafood. ? When you prepare animal proteins, cut pieces into small portion sizes. For most meat and fish, one serving is about the size of the palm of your hand. ? Eat at least five servings of fresh fruits and vegetables each day. To do this: ? Keep fruits and vegetables on hand for snacks. ? Eat one piece of fruit or a handful of berries with breakfast. ? Have a salad and fruit at lunch. ? Have two kinds of vegetables at dinner. ? You may be told to limit foods that are high in a substance called oxalate. These include: ? Spinach (cooked), rhubarb, beets, sweet potatoes, and Maldivian chard. ? Peanuts. ? Potato chips, palestinian fries, and baked potatoes with skin on. ? Nuts and nut products. ? Chocolate. ? If you regularly take a diuretic medicine, make sure to eat at least 1 or 2 servings of fruits or vegetables that are high in potassium each day. These include: ? Avocado. ? Banana. ? [place], prune, carrot, or tomato juice. ? Baked potato. ? Cabbage. ? Beans and split peas. Lifestyle ? Drink enough fluid to keep your urine pale yellow. This is the most important thing you can do. Spread your fluid intake throughout the day. ? If you drink alcohol: ? Limit how much you have to: ? 0?1 drink a day for women who are not . ? 0?2 drinks a day for men. ? Know how much alcohol is in your drink. In the [place] one drink equals one 12 oz bottle of beer (355 mL), one 5 oz glass of wine (148 mL), or one 1? oz glass of hard liquor (44 mL). ? Lose weight if told by your health care provider. Work with your dietitian to find an eating plan and weight loss strategies that work best for you. General information ? Talk to your health care provider and dietitian about taking daily supplements. Depending on your health and the cause of your kidney stones, you may be told: ? Do not take high-dose supplements of vitamin C (1,000 mg a day or more). ? To take a calcium supplement. ? To take a daily probiotic supplement. ? To take other supplements such as magnesium, fish oil, or vitamin B6. ? Take cems-ecj-dujmbmp and prescription medicines only as told by your health care provider. These include supplements. What foods sh (more content not included)... Normal [facility] Urology Office/Clinic Noteon 07-19-2023 Urology Office/Clinic Note Chief Complaint ER follow up due to kidney stones HPI Staff Pt was seen at [facility] due to kidney stones CT SCAN 06/02/23. Pt last seen on 03/28/21 Previous DX: hydronephrosis, HX of kidney stones, ureteral stone S/P Lithotripsy 11/25/20 Dysuria: denies pain and burning Incomplete bladder emptying: denies Hematuria: denies visible blood Frequency: denies Urgency: denies Nocturia: denies Stream: denies hesitancy Leaking: denies Post void dripping: denies Wearing pads/ Depends: denies Urge incontinence: denies Stress incontinence: sometimes Incontinence without Sensory Awareness: denies Abdominal pain: denies Flank pain: denies Sexual complaints: _ History of Present Illness I have reviewed and verified the staff HPI to be accurate for this encounter. Portions of this record may have been created with voice recognition artificial intelligence software, specifically [employer], Jimmy Fairly and or Jimmy Fairly. Substitutions may have occurred due to the inherent limitations of voice recognition and artificial intelligence software. Review of Systems PHQ Score Initial Depression Screen Score: 0 SCORE Physical Exam Vitals & Measurements T: 37 ?C(Temporal Artery) RR: 14 HT: 65 in HT: 165.0 cm WT: 94.1 kg WT: 207.02 lb BMI: 34.56 General: Well developed, well nourished, in no acute distress. Genitourinary: Flank Pain: none. Bladder: nonpalpable. Assessment/Plan BBSQ 4 1. Kidney stone (N20.0: Calculus of kidney) s/p cysto/ RRG/scopy/laser/R stent placement done 12/15/20 and cysto/ R stent removal done 01/03/21. [1] [facility] ER 06/02/2023 - left flank pain. CT AP w/o con 06/02/2023 - 2 mm left mid ureteral stone, mild left hydroureter and hydronephrosis. Multiple bilateral kidney stones measuring up to 3 mm in the right. Discharged with Bactrim DS and Flomax. Patient was able to pass a stone within about a week and a half, did bring stone and specimen cup today which will be sent for analysis. Patient did previously complete metabolic workup through [facility] [employer] [employer] However, unable to find urine results. Lab work appears within normal limits from that time. Patient was lost to follow-up regarding review of metabolic workup. Patient states that she would like to avoid procedure in the future at all cost, given that she had so much discomfort from stent previously. Discussed importance of metabolic workup in stone prevention and keeping current stones from increasing in size. Will order Litholink 24-hour urine to be completed. Discussed generalized stone prevention - pt encouraged to increase fluid intake so that he/she producing 2.5L of urine daily. Add 1/4 cup of lemon juice to water throughout the day or can also drink sugar free lemonade or clear soda. Avoid dark eron. Restrict sodium intake. Restrict animal protein. -Complete Litholink, follow-up 4 months for review Ordered: Calculi Analysis Urinary Urnls Dip Stick Auto w/o Microscopy POC 99618 2. Microhematuria (R31.29: Other microscopic hematuria) UA today with trace leukocytes, no signs of blood at this time. Patient denies recent hematuria or urinary infection. Patient knows to call contact office with any episode of gross hematuria. Ordered: Calculi Analysis Urinary Urnls Dip Stick Auto w/o Microscopy POC [id number] Follow-up With When Contact Information Orzech DIANELYS, OSITOC, Jeanie X, FAM, URL Additional Instructions: 4 mos w/ litholink Patient Education Hematuria, Adult Dietary Guidelines to Help Prevent Kidney Stones Kidney Stones, Lsqa-[id number]-Rwni Problem List/Past Medical History Ongoing Arthritis Aspirin long-term use BMI 33.0-33.9,adult CAD (coronary artery disease) Heart attack Heart disease High cholesterol History of osteoarthritis HTN (hypertension) Hydronephrosis Kidney stone Ureteral stone Vertigo Historical No qualifying data Procedure/Surgical History Cystoscopic removal of ureteric stent (01/03/2021), Cystoscopy (12/15/2020), ESWL (extracorporeal shockwave lithotripsy) of ureteric calculus (11/25/2020), ESWL - Extracorporeal shockwave lithotripsy for renal calculus (11/25/2020), Cystoscopic removal of ureteric stent (11/05/2020), Cystoscopy (10/11/2020), MEDIAL BRANCH BLOCK (11/17/2015), Injection of facet joint using fluoroscopic guidance (06/07/2015), Cholecystectomy, history of cervical vertebral fracture, Percutaneous angioplasty of coronary artery, Tubal ligation. Medications aspirin, 81 mg, Oral, Daily calcium-vitamin D, 1 tab, Oral, Daily losartan 100 mg Tab, 100 mg= 1 tab(s), Oral, Daily metoprolol 25 mg ER Tab, 25 mg= 1 tab(s), Oral, BID rosuvastatin 40 mg Tab, 40 mg= 1 tab(s), Oral, Daily Tylenol Extra Strength 500 mg oral tablet, 1000 mg= 2 tab(s), Oral, q6hr, PRN Allergies No Known Allergies Social History Alcohol - Low Risk, 06/29/2015 Wine, 1-2 times per month, 06/29/2015 Substance Abuse - Denies Substance Abuse, 06/29/2015 T (more content not included)... Normal [facility] Comment on above: Result Comment: Elec tronically Signed By: ERNESTINE Hennessy APRN, Jeanie Crowder\.br\Date and Time Signed: 07/19/23 09:33 EDT XR ABDOMEN 1 VIEWon 07-19-19 24 XR ABDOMEN 1 VIEW FINDINGS: Renal shadows and the course of both ureters above the pelvic brim are obscured by moderate to large volume of stool throughout the colon. No distal ureteral or bladder stones are seen. Bowel gas pattern is otherwise unremarkable. Large amount of colon stool, no obstruction. Cholecystectomy clips. IMPRESSION: 1. Obscured renal shadows 2. No ureteral or bladder stones TRANSCRIBED BY: ELECTRONICALLY SIGNED BY: Jorje Tilley MD Normal Not Available ED Note-Physicianon 07-07-19 24 ED Note-Physician [id number] #[id number] Normal [facility] Tobacco Screening.on 023 Adult depression screening assessment No [facility] y 250 DO Work Phone: Fall risk assessment a) No falls within the last year [facility] 250 DO Work Phone: Tobacco use status CPHS b) No [facility] 250 DO Work Phone: US DINO DOP LEG RTon 12-19-19 22 US DINO DOP LEG RT ULTRASOUND OF THE RIGHT LOWER EXTREMITY. HISTORY: Pain COMPARISON: 12/14/2021 TECHNIQUE: Ultrasound doppler evaluation of the right lower extremity using compression, color doppler and augmentation maneuvers during spectral doppler analysis. FINDINGS: Common femoral vein: Patent. Femoral vein: Patent. Popliteal vein: Patent. Tibioperoneal veins: Patent. Greater saphenous vein: Patent. Additional findings: None IMPRESSION: No right lower extremity deep venous thrombosis. Electronically authenticated by: YVAN FLORES Date: 2021-12-18 14:37 Normal [facility] INSULINon 12-15-2021 Insulin 34.1 uIU/mL Critically high 2.6-24.9 [facility] Comment on above: Performed By: #### I NSULIN ####[facility] [address] [place] [address]Dr. Luther Clark CBC AUTO DIFFon 12-14-2021 BASO # 0.0 103/ul Normal 0.0-0.1 [facility] Comment on above: Performed By: #### C BC #### [facility] [address] [address] [address] Luther Clark Basophils/100 WBC (Bld) 0.6 % Normal 0.2-2.0 [facility] Comment on above: Performed By: #### C BC #### [facility] [address] [address] [address] Luther Clakr EO # 0.1 103/ul Normal 0.0-0.7 [facility] Comment on above: Performed By: #### C BC #### [facility] [address] [place] [address] Dr. Luther Clark Eosinophils/100 WBC (Bld) 1.3 % Normal 0.9-7.0 [facility] Comment on above: Performed By: #### C BC #### [facility] [address] [place] [address] Dr. Luther Clark Erythrocyte distribution width (RBC) [Ratio] 13.1 % Normal 11.0-15.0 [facility] Comment on above: Performed By: #### C BC #### [facility] [address] [place] [address] Dr. Luther Clark Hematocrit (Bld) [Volume fraction] 44.0 % Normal 36.0-48.0 [facility] Comment on above: Performed By: #### C BC #### [facility] [address] [place] [address] Dr. Luther Clark Hemoglobin (Bld) [Mass/Vol] 13.8 g/dL Normal 12.0-16.0 [facility] Comment on above: Performed By: #### C BC #### [facility] [address] [place] [address] Dr. Luther Clark IG # 0.02 10e3/ul Normal 0.00-0.03 [facility] Comment on above: Performed By: #### C BC #### [facility] [address] [place] [address] Dr. Luther Clark IG % 0.3 % Normal 0.0-0.5 [facility] Comment on above: Performed By: #### C BC #### [facility] [address] [place] [address] Dr. Luther Clark LYMPH # 2.2 103/ul Normal 1.2-3.8 [facility] Comment on above: Performed By: #### C BC #### [facility] [address] [place] [address] Dr. Luther Clark Lymphocytes/100 WBC (Bld) 30.9 % Normal 20.5-60.0 [facility] Comment on above: Performed By: #### C BC #### [facility] [address] [place] [address] Dr. Luther Clark MANUAL DIFF REQ NO Normal [facility] Comment on above: Performed By: #### C BC #### [facility] [address] [place] [address] Dr. Luther Clark MCH (RBC) [Entitic mass] 30.7 pg Normal 26.7-34.0 [facility] Comment on above: Performed By: #### C BC #### [facility] [address] [place] [address] Dr. Luther Clark MCHC (RBC) [Mass/Vol] 31.4 g/dL Normal 29.9-35.2 [facility] Comment on above: Performed By: #### C BC #### [facility] [address] [place] [address] Dr. Luther Clark MCV (RBC) [Entitic vol] 98.0 fL Normal 81.0-99.0 [facility] Comment on above: Performed By: #### C BC #### [facility] [address] [place] [address] Dr. Luther Clark MONO # 0.6 103/ul Normal 0.3-0.8 [facility] Comment on above: Performed By: #### C BC #### [facility] [address] [place] [address] Dr. Luther Clark Monocytes/100 WBC (Bld) 8.5 % Normal 1.7-12.0 [facility] Comment on above: Performed By: #### C BC #### [facility] [address] [place] [address] Dr. Luther Clark NEUT # 4.1 103/ul Normal 1.4-6.5 [facility] Comment on above: Performed By: #### C BC #### [facility] [address] [place] [address] Dr. Luther Clark Neutrophils/100 WBC (Bld) 58.4 % Normal 43.0-75.0 [facility] Comment on above: Performed By: #### C BC #### [facility] [address] [address] [address] Luther Clark Platelet mean volume (Bld) [Entitic vol] 9.8 fL Normal 9.5-13.5 [facility] Comment on above: Performed By: #### C BC #### [facility] [address] [address] [address] Luther Clark PLT 230 103/ul Normal 150-450 [facility] Comment on above: Performed By: #### C BC #### [facility] [address] [address] [address] Luther Clark RBC 4.49 106/ul Normal 4.20-5.40 [facility] Comment on above: Performed By: #### C BC #### [facility] [address] [address] [address] Luther Clark WBC 7.1 103/ul Normal 4.0-11.0 [facility] Comment on above: Performed By: #### C BC #### [facility] [address] [address] [address] Luther Clark FREE THYROXINE INDEX T7on FTI 2.33 Normal 1.30-4.50 [facility] Comment on above: Performed By: #### T 7, TSH, CMP, LIPID ####[facility] [address] [place], [place] [address]VnDr. Luther Clark T3U 31.0 % Normal 30.0-39.0 [facility] Comment on above: Performed By: #### T 7, TSH, CMP, LIPID ####[facility] [address] [place], [place] [address]DpDr. Luther Clark T4 [Mass/Vol] 7.50 ug/dL Normal 4.80-13.[address] [facility] Comment on above: Performed By: #### T 7, TSH, CMP, LIPID ####[facility] [address] [place], [place] [address]HdDr. Luther Clark GLYCOHEMOGLOBIN A1Con 2021 ADA RECOMMENDATION SEE BELOW Normal [facility] Comment on above: Result Comment: ADA RECOMMENDED LIMIT 4.0 - 6.0 ADA THERAPEUTIC TARGET < 7.0 ACTION SUGGESTED > 7.0 Performed By: #### A 1C #### [facility] [address] [address] [address] Luther Clark Glucose [Mass/Vol] 126 mg/dL Normal [facility] Comment on above: Performed By: #### A 1C #### [facility] [address] [address] [address] Luther Clark HbA1c (Bld) [Mass fraction] 6.0 % Normal 4.5-6.2 [facility] Comment on above: Performed By: #### A 1C #### [facility] [address] [address] [address] Luther Clark IRONon 12-14-2021 Iron [Mass/Vol] 60.0 ug/dL Normal 50.0-170.0 [facility] Comment on above: Performed By: #### V ITAD, IRON #### [facility] [address] [address] [address] Luther Clark LIPID PROFILEon 12-14-2021 CHOL-HDL RATIO NORM SEE BELOW Normal [facility] [place] [facility] Comment on above: Result Comment: 3.3 - 4.4 LOW RISK 4.4 - 7.1 AVERAGE RISK 7.1 - 11.0 MODERATE RISK >11.0 HIGH RISK Performed By: #### T 7, TSH, CMP, LIPID ####[facility] [address] [place] [address]Dr. Luther Clark Cholesterol [Mass/Vol] 141 mg/dL Normal <=200 [facility] Comment on above: Performed By: #### T 7, TSH, CMP, LIPID ####[facility] [address] [place] [id number]. Luther Clark Cholesterol in HDL [Mass/Vol] 49 mg/dL Normal 40-60 [facility] Comment on above: Performed By: #### T 7, TSH, CMP, LIPID ####[facility] [address] [place] [id number]. Luther Clark Cholesterol in LDL [Mass/Vol] 56.4 mg/dL Normal [facility] Comment on above: Performed By: #### T 7, TSH, CMP, LIPID ####[facility] [address] [place] [address]Dr. Luther Clark Cholesterol.total/Cho lesterol in HDL [Mass ratio] 2.9 {ratio} Normal [facility] Comment on above: Performed By: #### T 7, TSH, CMP, LIPID ####[facility] [address] [place] [address]Dr. Luther Clark HDL NORMAL > or = 60 mg/dl - LOW CARDIOVASCULAR RISK <40 mg/dl - HIGH CARDIOVASCULAR RISK Normal [facility] Comment on above: Performed By: #### T 7, TSH, CMP, LIPID ####[facility] [address] [place] [address]Dr. Luther Clark LDL CALC NORMAL SEE BELOW Normal [facility] [place] Comment on above: Result Comment: <100 mg/dl OPTIMAL 100 - 129 mg/dl NEAR OR ABOVE OPTIMAL 130 - 159 mg/dl BORDERLINE HIGH 160 - 189 mg/dl HIGH >190 mg/dl VERY HIGH Performed By: #### T 7, TSH, CMP, LIPID ####[facility] [address] [place] [address]Dr. Luther Clark Triglyceride [Mass/Vol] 178 mg/dL Critically high <=150 [facility] Comment on above: Performed By: #### T 7, TSH, CMP, LIPID ####[facility] [address] [place] [id number]. Luther Clark VLDL CALC 35.6 mg/dL Normal [facility] Comment on above: Performed By: #### T 7, TSH, CMP, LIPID ####[facility] [address] [place] [address]Dr. Luther Clark PROF 14(COMP METB)on 022 Albumin [Mass/Vol] 3.8 g/dL Normal 3.4-5.0 [facility] Comment on above: Performed By: #### T 7, TSH, CMP, LIPID ####[facility] [address] [place] [address]Dr. Moriahsaad Clark Albumin/Globulin [Mass ratio] 1.1 {ratio} Normal [facility] Comment on above: Performed By: #### T 7, TSH, CMP, LIPID ####[facility] [address] [place] [address]Dr. Moriahsaad Clark ALP [Catalytic activity/Vol] 117 U/L Critically high 46-116 [facility] Comment on above: Performed By: #### T 7, TSH, CMP, LIPID ####[facility] [address] [place] [address]Dr. Moriahsaad Clark ALT [Catalytic activity/Vol] 33 U/L Normal 14-59 [facility] Comment on above: Performed By: #### T 7, TSH, CMP, LIPID ####[facility] [address] [place] [address]Dr. Luther Clark Anion gap [Moles/Vol] 5.7 mmol/L Normal [facility] Comment on above: Performed By: #### T 7, TSH, CMP, LIPID ####[facility] [address] [place] [address]Dr. Luther Clark AST [Catalytic activity/Vol] 18 U/L Normal 15-37 [facility] Comment on above: Performed By: #### T 7, TSH, CMP, LIPID ####[facility] [address] [place] [address]Dr. Luther Clark Bilirubin [Mass/Vol] 1.8 mg/dL Critically high 0.2-1.0 [facility] Comment on above: Performed By: #### T 7, TSH, CMP, LIPID ####[facility] [address] [place] [address]Dr. Luther Clark Calcium [Mass/Vol] 10.5 mg/dL Critically high 8.5-10.1 [facility] Comment on above: Performed By: #### T 7, TSH, CMP, LIPID ####[facility] [address] [place] [address]Dr. Luther Clark Chloride [Moles/Vol] 105 mmol/L Normal 98-107 [facility] Comment on above: Performed By: #### T 7, TSH, CMP, LIPID ####[facility] [address] [place] [address]Dr. Luther Clark CO2 [Moles/Vol] 35.6 mmol/L Critically high 21.0-32.0 [facility] Comment on above: Performed By: #### T 7, TSH, CMP, LIPID ####[facility] [address] [place] [address]Dr. Luther Clark Creatinine [Mass/Vol] 0.90 mg/dL Normal 0.55-1.02 [facility] Comment on above: Performed By: #### T 7, TSH, CMP, LIPID ####[facility] [address] [place] [address]Dr. Luther Clark EGFR-AF [place]IZ[place] >60 Normal >=60 [facility] Comment on above: Performed By: #### T 7, TSH, CMP, LIPID ####[facility] [address] [place] [address]Dr. Luther Eduardo EGFR-NON AF CITIZEN [place] >60 Normal >=60 [facility] Comment on above: Performed By: #### T 7, TSH, CMP, LIPID ####[facility] [address] [place], [place] [address]Dr. Luther Clark Globulin (S) [Mass/Vol] 3.4 g/dL Normal [facility] Comment on above: Performed By: #### T 7, TSH, CMP, LIPID ####[facility] [address] [place] [address]Dr. Luther Clark Glucose [Mass/Vol] 99 mg/dL Normal 74-106 [facility] Comment on above: Performed By: #### T 7, TSH, CMP, LIPID ####[facility] [address] [place] [address]Dr. Luther Clark Potassium [Moles/Vol] 4.3 mmol/L Normal 3.5-5.1 [facility] Comment on above: Performed By: #### T 7, TSH, CMP, LIPID ####[facility] [address] [place] [address]Dr. Luther Clark Protein [Mass/Vol] 7.2 g/dL Normal 6.4-8.2 [facility] Comment on above: Performed By: #### T 7, TSH, CMP, LIPID ####[facility] [address] [place], [place] [address]To. Luther Clark Sodium [Moles/Vol] 142 mmol/L Normal 136-145 [facility] Comment on above: Performed By: #### T 7, TSH, CMP, LIPID ####[facility] [address] [place] [id number]. Luther Clark Urea nitrogen [Mass/Vol] 17.0 mg/dL Normal 7.0-18.0 [facility] Comment on above: Performed By: #### T 7, TSH, CMP, LIPID ####[facility] [address] [place] [address]Dr. Luther Clark Urea nitrogen/Creatinine [Mass ratio] 18.9 mg/mg Normal [facility] Comment on above: Performed By: #### T 7, TSH, CMP, LIPID ####[facility] [address] [place] [id number]. Luther Clark TSHon 12-14-2021 TSH 1.450 uIU/mL Normal 0.358-3.740 [facility] Comment on above: Performed By: #### T 7, TSH, CMP, LIPID ####[facility] [address] [place] [id number]. Luther Clark US DINO DOP LEG RTon 12-15-19 22 US DINO DOP LEG RT EXAMINATION: US DINO DOP LEG RT HISTORY: Pain of right lower leg COMPARISON: No relevant comparison available. FINDINGS: REGION: Right lower extremity THROMBI: None. COMPRESSIBILITY: Normal compressibility. FLOW: Normal waveform and antegrade flow between 5 and 20 cm/s. OTHER: None. IMPRESSION: 1. No deep vein thrombus within the right lower extremity. Electronically authenticated by: RAMEZ CHAN Date: 2021-12-14 11:40 Normal [facility] VITAMIN D 25 OHon 12-14-2021 VIT D 25-OH 39.8 ng/mL Normal [facility] Comment on above: Performed By: #### V ITAD, IRON #### [facility] [address] [place], [place] [address] Dr. Luther Clark VIT D RANGES SEE BELOW Normal [facility] Comment on above: Result Comment: <20 ng/mL Vit D deficient 20 - <30 ng/mL Vit D insufficient 30 - 100 ng/mL Vit D sufficient >100 ng/mL Potential Toxicity Performed By: #### V FELIXAD, IRON #### [facility] [address] [place], [place] [address] Dr. Luther Clark Tobacco Screening.on 022 Adult depression screening assessment No [facility] y 250 DO Work Phone: Fall risk assessment b) One or more fall s in the last year [facility] 250 DO Work Phone: Tobacco use status CPHS b) No [facility] 250 DO Work Phone: XR HUMERUS RT MIN 2 Von 06-11 XR HUMERUS RT MIN 2 V EXAM: XR HUMERUS R T MIN 2 V, XR SHOULDER RT 2V or > HISTORY: Pain of right shoulder joint COMPARISON: None. TECHNIQUE: 3 views of the right shoulder and 2 views of the right humerus were obtained. FINDINGS: No acute fracture or dislocation of the right shoulder or right humerus is seen. The humeral head is well-seated on the glenoid. The acromioclavicular and coracoclavicular distances are preserved. Scattered calcified granulomas are seen in the right lung. IMPRESSION: 1. No acute fracture or dislocation of the right shoulder or right humerus is seen. If there is concern for internal derangement of the shoulder, a nonemergent outpatient MRI is recommended. Electronically authenticated by: [place] Date: 2021-07-08 04:54 Normal [facility] Vital Signs Date Time Vital Sign Value Performing Clinician Chaitanya larson 07-19-2023 08:33-0400 Body temperature 98.6 [degF] Jeanie Hennessy [facility] 07-19-2023 08:33-0400 Respiratory rate 14 /min Jeanie Canoch [facility] 12-07-2022 09:16-0400 Body height 165.1 cm Mateus M Hoy Work Phone: [facility] 250 DO Work Phone: 12-07-2022 09:16-0400 Body mass index (BMI) [Ratio] 33.61 kg/m2 Mateus M Hoy Work Phone: [facility] 250 DO Work Phone: 12-07-2022 09:16-0400 Body surface area Derived from formula 1.99 m2 Mateus M Hoy Work Phone: [facility] 250 DO Work Phone: 12-07-2022 09:16-0400 Body weight 91.63 kg Mateus M Hoy Work Phone: [facility] 250 DO Work Phone: 12-07-2022 09:16-0400 Diastolic blood pressure 82 mm[Hg] Mateus M Hoy Work Phone: [facility] 250 DO Work Phone: 12-07-2022 09:16-0400 Heart rate 60 /min Mateus M Hoy Work Phone: [facility] 250 DO Work Phone: 12-07-2022 09:16-0400 Systolic blood pressure 108 mm[Hg] Mateus M Hoy Work Phone: [facility] 250 DO Work Phone: 12-08-2021 09:36-0400 Body height 165.1 cm Mateus M Hoy Work Phone: [facility] 250 DO Work Phone: 12-08-2021 09:36-0400 Body mass index (BMI) [Ratio] 34.28 kg/m2 Mateus Iftikhar Hoy Work Phone: [facility] 250 DO Work Phone: 12-08-2021 09:36-0400 Body surface area Derived from formula 2 m2 Mateus Iftikhar Hoy Work Phone: [facility] 250 DO Work Phone: 12-08-2021 09:36-0400 Body weight 93.44 kg Mateus Iftikhar Hoy Work Phone: [facility] 250 DO Work Phone: 12-08-2021 09:36-0400 Diastolic blood pressure 76 mm[Hg] Mateus Iftikhar Hoy Work Phone: [facility] 250 DO Work Phone: 12-08-2021 09:36-0400 Heart rate 64 /min Mateus Iftikhar Hoy Work Phone: [facility] 250 DO Work Phone: 12-08-2021 09:36-0400 Systolic blood pressure 134 mm[Hg] Mateus Iftikhar Hoy Work Phone: [facility] 250 DO Work Phone: Encounters Encounter Date Encounter Type Care Provider Facility Start: 07-19-2023 End: 07-20-2023 ambulatory LAURA GALEA Not Available Start: 07-19-2023 End: 07-19-2023 Lab Drop off Jeanie X Orzech [facility] Start: 07-19-2023 End: 07-19-2023 ambulatory Jeanie X Orzech Facility:[facility] Start: 07-19-2023 End: 07-19-2023 Patient encounter procedure Jeanie X Orzech [facility] Start: 12-07-2022 Office outpatient vi sit 15 minutes Mateus M Hoy Work Phone: [facility] 250 DO Work Phone: Start: 05-03-2022 Rx Renewal Mateus M Hoy Work Phone: [facility] 250 DO Work Phone: Start: 04-17-2022 Rx Renewal Mateus M Hoy Work Phone: [facility] 250 DO Work Phone: Start: 12-18-2021 End: 12-18-2021 ambulatory SUZE ELIZABETH Facility:[facility] Start: 12-14-2021 End: 12-15-2021 ambulatory SUZE ELIZABETH Facility:[facility] Start: 12-08-2021 Office outpatient vi sit 15 minutes Mateus M Hoy Work Phone: [facility] 250 DO Work Phone: Start: 10-13-2021 ambulatory SUZE ELIZABETH Facility: [facility] Start: 07-08-2021 End: 07-08-2021 ambulatory SUZE ELIZABETH Facility:[facility] Start: 06-29-2021 Rx Renewal Riky harris DO Work Phone: [facility] 250 DO Work Phone: Procedures Date Procedure Procedure Detail Performing Clinician Start: 01-03-2021 Cystoscopic removal of ureteric stent Jeanie Orzech Start: 12-15-2020 Cystoscopy Jeanie Orz ech Start: 11-25-2020 Extracorporeal shock wave lithotripsy of calculus of kidney Jeanie Orzech Start: 11-25-2020 Extracorporeal shock wave lithotripsy of ureter Jeanie Orzech Start: 11-05-2020 Cystoscopic removal of ureteric stent Jeanie Orzech Start: 10-11-2020 Cystoscopy Jeanie Orz ech Start: 11-17-2015 MEDIAL BRANCH BLOCK 1 A urora Orzech Comment on above: BILATERAL C3-C6 90% RELIEF TO PRESENT Start: 06-07-2015 Injection of facet j oint using fluoroscopic guidance Jeanie Orzech Comment on above: C3-C6 RT sided 80% r elief Arthroplasty of knee Mateus M Hoy Work Phone: Cardiac catheterization Daniel las M Hoy Work Phone: Cataract surgery Mateus M H oy Work Phone: Cholecystectomy Mateus M Ho y Work Phone: Cholecystectomy Jeanie Orzec h history of cervical vertebral fracture Jeanie Orzech History of percutane ous transluminal coronary angioplasty History of PTCA Mateus Buitrago Hoy Work Phone: Incision of ovary Mateus Buitrago Hoy Work Phone: Ligation of fallopian tube A urora Orzech Percutaneous translu trevor coronary angioplasty Jeanie Orzech NEGATED: Highlighted row has not occurred! Total colonoscopy Mateus Buitrago Hocharlie Work Phone: Plan of Treatment Date Care Activity Detail Author Start: 12-07-2022 FUV, Provider: Riky Benavidez, Status: Pen, Time: 9:10 AM FUV, Provider: Riky Benavidez, Status: Pen, Time: 9:10 AM [facility] Answer.To 250 DO Work Phone: Start: 12-08-2021 FUV, Provider: Riky Benavidez, Status: Pen, Time: 9:30 AM FUV, Provider: Riky Benavidez, Status: Pen, Time: 9:30 AM [facility] Answer.To 250 DO Work Phone: Immunizations Immunization Date Immunization Notes Care Provider Harpreet cr 12-14-2021 pneumococcal conjuga te vaccine, 13 valent Mateus Meeks Work Phone: [facility] 06-21-2020 Katerin COVID-19 Vaccine 0.5 ML Intramuscular Suspension Mateus Meeks Work Phone: [facility] 12-09-2013 influenza virus vaccine, whole virus Mateus Meeks Work Phone: [facility] 250 DO Work Phone: 12-09-2013 pneumococcal polysaccharide vaccine, 23 valent Mateus Meeks Work Phone: [facility] 250 DO Work Phone: NEGATED: Highlighted row has not occurred!07-19-2023 influenza virus vaccine, unspecified formulation Jeanie Hennessy [facility] Payers Date Payer Category Payer Unknown [id number] 1957 Medicare [id number] 1957 Self-pay [id number] 1945 Unknown [id number] 1945 Unknown [id number] 1945 Unknown [id number] 1945 Unknown [id number] 1945 Unknown [id number] 1947 Unknown [id number] 1945 Unknown [id number] Unknown [facility] Social History Date Type Detail Facility [facility] Work Phone: Comment on above: 12-16 oz soda daily; occasioanlly; Start: 07-19-2023 Tobacco smoking status Never s moked tobacco (finding) [facility] Tobacco smoking status Never [facility] Sex Assigned At Female [facility] Medical Equipment Procedure Code Equipment Code Equipment Origin al Text Equipment Identifier Dates CYSTOSCOPY STENT INSERTION Unknown 11/25/20 Unknown Unknown FDA Start: 11-25-2020 CYSTOSCOPY RETROGRADE STENT INSERTION Juan Carlos MARTIN MD 12/15/20 Unknown Ureter R [id number] FDA Start: 12-15-2020 CYSTOSCOPY STENT INSERTION Unknown 11/25/20 Unknown Unknown FDA Start: 11-25-2020 Functional Status Date Assessment Result Facility 07-19-2023 Functional Status N/A [facility] Evaluation + Plan note 07-19-2023 Note Date & Type Note Facility 07-19-2023 Evaluation + Plan note Diagnostic Tests PendingCalculi Analysis Urinary 07/19/23 [facility] Hospital Discharge instructions 07-19-2023 Note Date & Type Note Facility 07-19-2023 Hospital Discharg e instructions Patient Education 07/19/2023 09:33:06 Hematuria, Adult Hematuria, Adult Hematuria is blood in the urine. Blood may be visible in the urine, or it may be identified with a test. This condition can be caused by infections of the bladder, urethra, kidney, or prostate. Other possible causes include: Kidney stones. Cancer of the urinary tract. Too much calcium in the urine. Conditions that are passed from parent to child (inherited conditions). Exercise that requires a lot of energy. Infections can usually be treated with medicine, and a kidney stone usually will pass through your urine. If neither of these is the cause of your hematuria, more tests may be needed to identify the cause of your symptoms. It is very important to tell your health care provider about any blood in your urine, even if it is painless or the blood stops without treatment. Blood in the urine, when it happens and then stops and then happens again, can be a symptom of a very serious condition, including cancer. There is no pain in the initial stages of many urinary cancers. Follow these instructions at home: Medicines Take kovj-gdu-aqtygjr and prescription medicines only as told by your health care provider. If you were prescribed an antibiotic medicine, take it as told by your health care provider. Do not stop taking the antibiotic even if you start to feel better. Eating and drinking Drink enough fluid to keep your urine pale yellow. It is recommended that you drink 3 4 quarts (2.8 3.8 L) a day. If you have been diagnosed with an infection, drinking cranberry juice in addition to large amounts of water is recommended. Avoid caffeine, tea, and carbonated beverages. These tend to irritate the bladder. Avoid alcohol because it may irritate the prostate (in males). General instructions If you have been diagnosed with a kidney stone, follow your health care provider's instructions about straining your urine to catch the stone. Empty your bladder often. Avoid holding urine for long periods of time. If you are female: ?After a bowel movement, wipe from front to back and use each piece of toilet paper only once. ?Empty your bladder before and after sex. Pay attention to any changes in your symptoms. Tell your health care provider about any changes or any new symptoms. It is up to you to get the results of any tests. Ask your health care provider, or the department that is doing the test, when your results will be ready. Keep all follow-up visits. This is important. Contact a health care provider if: You develop back pain. You have a fever or chills. You have nausea or vomiting. Your symptoms do not improve after 3 days. Your symptoms get worse. Get help right away if: You develop severe vomiting and are unable to take medicine without vomiting. You develop severe pain in your back or abdomen even though you are taking medicine. You pass a large amount of blood in your urine. You pass blood clots in your urine. You feel very weak or like you might faint. You faint. Summary Hematuria is blood in the urine. It has many possible causes. It is very important that you tell your health care provider about any blood in your urine, even if it is painless or the blood stops without treatment. Take pcux-mra-chygwqq and prescription medicines only as told by your health care provider. Drink enough fluid to keep your urine pale yellow. This information is not intended to replace advice given to you by your health care provider. Make sure you discuss any questions you have with your health care provider. Document Revised: 10/27/2020 Document Reviewed: 10/27/2020 [employer] Patient Education 2022 [employer]. 07/19/2023 09:33:04 Dietary Guidelines to Help Prevent Kidney Stones Dietary Guidelines to Help Prevent Kidney Stones Kidney stones are deposits of minerals and salts that form inside your kidneys. Your risk of developing kidney stones may be greater depending on your diet, your lifestyle, the medicines you take, and whether you have certain medical conditions. Most people can lower their risks of developing kidney stones by following these dietary guidelines. Your dietitian may give you more specific instructions depending on your overall health and the type of kidney stones you tend to develop. What are tips for following this plan? Reading food labels Choose foods with no salt added or low-salt labels. Limit your salt (sodium) intake to less than 1,500 mg a day. Choose foods with calcium for each meal and snack. Try to eat about 300 mg of calcium at each meal. Foods that contain 200 500 mg of calcium a serving include: ?8 oz (237 mL) of milk, cnaqxqx-xcdpvdhqdkfy-qcoid milk, and calcium-fortifiedfruit juice. Calcium-fortified means that calcium has been added to these drinks. ?8 oz (237 mL) of kefir, yogurt, and soy yogurt. ?4 oz (114 g) of tofu. ?1 oz (28 g) of cheese. ?1 cup (150 g) of dried figs. ?1 cup (91 g) of cooked broccoli. ?One 3 oz (85 g) can of sardines or mackerel. Most people need 1,000 1,500 mg of calcium a day. Talk to your dietitian about how much calcium is recommended for you. Shopping Buy plenty of fresh fruits and vegetables. Most people do not need to avoid fruits and vegetables, even if these foods contain nutrients that may contribute to kidney stones. When shopping for convenience foods, choose: ?Whole pieces of fruit. ?Pre-made salads with dressing on the side. ?Low-fat fruit and yogurt smoothies. Avoid buying frozen meals or prepared deli foods. These can be high in sodium. Look for foods with live cultures, such as yogurt and kefir. Choose high-fiber grains, such as whole-wheat breads, oat bran, and wheat cereals. Cooking Do not add salt to food when cooking. Place a salt shaker on the table and allow each person to add their own salt to taste. Use vegetable protein, such as beans, textured vegetable protein (TVP), or tofu, instead of meat in pasta, casseroles, and soups. Meal planning Eat less salt, if told by your dietitian. To do this: ?Avoid eating processed or pre-made food. ?Avoid eating fast food. Eat less animal protein, including cheese, meat, poultry, or fish, if told by your dietitian. To do this: ?Limit the number of times you have meat, poultry, fish, or cheese each week. Eat a diet free of meat at least 2 days a week. ?Eat only one serving each day of meat, poultry, fish, or seafood. ?When you prepare animal proteins, cut pieces into small portion sizes. For most meat and fish, one serving is about the size of the palm of your hand. Eat at least five servings of fresh fruits and vegetables each day. To do this: ?Keep fruits and vegetables on hand for snacks. ?Eat one piece of fruit or a handful of berries with breakfast. ?Have a salad and fruit at lunch. ?Have two kinds of vegetables at dinner. You may be told to limit foods that are high in a substance called oxalate. These include: ?Spinach (cooked), rhubarb, beets, sweet potatoes, and Maldivian chard. ?Peanuts. ?Potato chips, palestinian fries, and baked potatoes with skin on. ?Nuts and nut products. ?Chocolate. If you regularly take a diuretic medicine, make sure to eat at least 1 or 2 servings of fruits or vegetables that are high in potassium each day. These include: ?Avocado. ?Banana. ?[place], prune, carrot, or tomato juice. ?Baked potato. ?Cabbage. ?Beans and split peas. Lifestyle Drink enough fluid to keep your urine pale yellow. This is the most important thing you can do. Spread your fluid intake throughout the day. If you drink alcohol: ?Limit how much you have to: ?0 1 drink a day for women who are not . ?0 2 drinks a day for men. ?Know how much alcohol is in your drink. In the [place] one drink equals one 12 oz bottle of beer (355 mL), one 5 oz glass of wine (148 mL), or one 1 oz glass of hard liquor (44 mL). Lose weight if told by your health care provider. Work with your dietitian to find an eating plan and weight loss strategies that work best for you. General information Talk to your health care provider and dietitian about taking daily supplements. Depending on your health and the cause of your kidney stones, you may be told: ?Do not take high-dose supplements of vitamin C (1,000 mg a day or more). ?To take a calcium supplement. ?To take a daily probiotic supplement. ?To take other supplements such as magnesium, fish oil, or vitamin B6. Take xizc-lhr-zmmttie and prescription medicines only as told by your health care provider. These include supplements. What foods should I limit? Limit your intake of the following foods, or eat them as told by your dietitian. Vegetables Spinach. Rhubarb. Beets. Canned vegetables. Pickles. Olives. Baked potatoes with skin. Grains Wheat bran. Baked goods. Salted crackers. Cereals high in sugar. Meats and other proteins Nuts. Nut butters. Large portions of meat, poultry, or fish. Salted, precooked, or cured meats, such as sausages, meat loaves, and hot dogs. Dairy Cheeses. Beverages Regular soft drinks. Regular vegetable juice. Seasonings and condiments Seasoning blends with salt. Salad dressings. Soy sauce. Ketchup. Barbecue sauce. Other foods Canned soups. Canned pasta sauce. Casseroles. Pizza. Lasagna. Frozen meals. Potato chips. Korean fries. The items listed above may not be a complete list of foods and beverages you should limit. Contact a dietitian for more information. What foods should I avoid? Talk to your dietitian about specific foods you should avoid based on the type of kidney stones you have and your overall health. Fruits Grapefruit. The item listed above may not be a complete list of foods and beverages you should avoid. Contact a dietitian for more information. Summary Kidney stones are deposits of minerals and salts that form inside your kidneys. You can lower your risk of kidney stones by making changes to your diet. The most important thing you can do is drink enough fluid. Drink enough fluid to keep your urine pale yellow. Talk to your dietitian about how much calcium you should have each day, and eat less salt and animal protein as told by your dietitian. This information is not intended to replace advice given to you by your health care provider. Make sure you discuss any questions you have with your health care provider. Document Revised: 06/08/2022 Document Reviewed: 06/08/2022 [employer] Patient Education 2022 [employer]. 07/19/2023 09:33:01 Kidney Stones, Wugh-ib-Tlpm Kidney Stones Kidney stones are rock-like masses that form inside of the kidneys. Kidneys are organs that make pee (urine). A kidney stone may move into other parts of the urinary tract, including: The tubes that connect the kidneys to the bladder (ureters). The bladder. The tube that carries urine out of the body (urethra). Kidney stones can cause very bad pain and can block the flow of pee. The stone usually leaves your body (passes) through your pee. You may need to have a doctor take out the stone. What are the causes? Kidney stones may be caused by: A condition in which certain glands make too much parathyroid hormone (primary hyperparathyroidism). A buildup of a type of crystals in the bladder made of a chemical called uric acid. The body makes uric acid when you eat certain foods. Narrowing (stricture) of one or both of the ureters. A kidney blockage that you were born with. Past surgery on the kidney or the ureters, such as gastric bypass surgery. What increases the risk? You are more likely to develop this condition if: You have had a kidney stone in the past. You have a family history of kidney stones. You do not drink enough water. You eat a diet that is high in protein, salt (sodium), or sugar. You are overweight or very overweight (obese). What are the signs or symptoms? Symptoms of a kidney stone may include: Pain in the side of the belly, right below the ribs (flank pain). Pain usually spreads (radiates) to the groin. Needing to pee often or right away (urgently). Pain when going pee (urinating). Blood in your pee (hematuria). Feeling like you may vomit (nauseous). Vomiting. Fever and chills. How is this treated? Treatment depends on the size, location, and makeup of the kidney stones. The stones will often pass out of the body through peeing. You may need to: Drink more fluid to help pass the stone. In some cases, you may be given fluids through an IV tube put into one of your veins at the hospital. Take medicine for pain. Make changes in your diet to help keep kidney stones from coming back. Sometimes, medical procedures are needed to remove a kidney stone. This may involve: A procedure to break up kidney stones using a beam of light (laser) or shock waves. Surgery to remove the kidney stones. Follow these instructions at home: Medicines Take tnpl-nco-qfjuyzg and prescription medicines only as told by your doctor. Ask your doctor if the medicine prescribed to you requires you to avoid driving or using heavy machinery. Eating and drinking Drink enough fluid to keep your pee pale yellow. You may be told to drink at least 8 10 glasses of water each day. This will help you pass the stone. If told by your doctor, change your diet. This may include: ?Limiting how much salt you eat. ?Eating more fruits and vegetables. ?Limiting how much meat, poultry, fish, and eggs you eat. Follow instructions from your doctor about eating or drinking restrictions. General instructions Collect pee samples as told by your doctor. You may need to collect a pee sample: ?24 hours after a stone comes out. ?8 12 weeks after a stone comes out, and every 6 12 months after that. Strain your pee every time you pee (urinate), for as long as told. Use the strainer that your doctor recommends. Do not throw out the stone. Keep it so that it can be tested by your doctor. Keep all follow-up visits as told by your doctor. This is important. You may need follow-up tests. How is this prevented? To prevent another kidney stone: Drink enough fluid to keep your pee pale yellow. This is the best way to prevent kidney stones. Eat healthy foods. Avoid certain foods as told by your doctor. You may be told to eat less protein. Stay at a healthy weight. Where to find more information National Kidney Foundation (NKF): www.kidney.org [facility] [facility] (UCF): www.urologyhealth.org Contact a doctor if: You have pain that gets worse or does not get better with medicine. Get help right away if: You have a fever or chills. You get very bad pain. You get new pain in your belly (abdomen). You pass out (faint). You cannot pee. Summary Kidney stones are rock-like masses that form inside of the kidneys. Kidney stones can cause very bad pain and can block the flow of pee. The stones will often pass out of the body through peeing. Drink enough fluid to keep your pee pale yellow. This information is not intended to replace advice given to you by your health care provider. Make sure you discuss any questions you have with your health care provider. Document Revised: 10/31/2021 Document Reviewed: 10/31/2021 [employer] Patient Education 2022 [employer]. Follow Up Care 07/12/2023 16:10:30 With:ERNESTINE Hennessy APRN, MARSHALL Gay, URL Address: When: Unknown Comments:4 mos w/ perez [facility] Clinical Note 12-18-2021 Note Date & Type Note Facility 12-18-2021 Note PROCEDURE: XR TIB_FI B RT 2V HISTORY: Pain ; cellulitis distal right tibia fibula and lateral ankle COMPARISON: None. FINDINGS: BONES:No fracture, dislocation, periosteal reaction. 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 SOFT TISSUES:Soft tissue swelling surrounding the ankle. Incidental calcifications within the posterior calf musculature. EFFUSION:None visible. OTHER: Negative. IMPRESSION: 1. No acute bone abnormality or findings to suggest osteomyelitis. 2. Soft tissue swelling surrounding the ankle. Electronically authenticated by: RAMEZ CHAN Date: 2021-12-18 14:22 [facility] Clinical Note 12-14-2021 Note Date & Type Note Facility 12-14-2021 Note PROCEDURE: XR KNEE R T 4V or > HISTORY: Pain of right knee joint COMPARISON: None. FINDINGS: BONES:Mild narrowing of medial compartment. Tiny periarticular degenerative osteophytes involving the anterior medial compartments. No fracture, dislocation, bone lesion. SOFT TISSUES:No visible soft tissue swelling. EFFUSION:None visible. OTHER: Negative. IMPRESSION: 1. No acute bone abnormality. 2. Mild degenerative changes. Electronically authenticated by: RAMEZ CHAN Date: 2021-12-14 11:57 [facility] Evaluation + Plan note Note Date & Type Note Facility Evaluation + Plan note No data available for this section [facility] Hospital Discharge instructions Note Date & Type Note Facility Hospital Discharge instructions No data available for this section [facility] Progress note Note Date & Type Note Facility Progress note No data available for this section [facility] Chief Complaint * DELFINA GONZALEZ is being seen for an annual follow-up of. * 76-year-old asymptomatic female who returns for annual follow-up she is doing well and has no cardiovascular complaints. She denies angina, hospitalizations or nitrate usage. She is status post very remote PCI of the PLV branch, subsequent catheterization 2 years ago 2019 revealed widely patent PLVbranch stent and otherwise normal coronary arteries. * Comorbidities continue to include controlled hypertension and hyperlipidemia, she is overweight we have counseled her on dietary discretion, weight loss and exercise * Recommendations, obtain a lipid panel follow-up in 1 year * DELFINA GONZALEZ is being seen for an annual follow-up of. * 76-year-old asymptomatic female who returns for annual follow-up she is doing well and has no cardiovascular complaints. She denies angina, hospitalizations or nitrate usage. She is status post very remote PCI of the PLV branch, subsequent catheterization 2 years ago 2019 revealed widely patent PLVbranch stent and otherwise normal coronary arteries. * Comorbidities continue to include controlled hypertension and hyperlipidemia, she is overweight we have counseled her on dietary discretion, weight loss and exercise * Recommendations, obtain a lipid panel follow-up in 1 year * DELFINA GONZALEZ is being seen for an annual follow-up of. * Patient is a 77-year-old female returns for follow-up and doing extremely well she has no cardiovascular complaints, hospitalizations, events, nitrate usage. 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 She has no lipid panelcurrently * Recommendations, continue current therapies, counseling on dietary discretion, weight loss exerciseand aerobic activities, follow-up with lipid panel I will see her again in 1 year Summary Purpose Family History No Family History Records Found Advance Directives No Advanced Directives Records FoundNo Advanced Directives Records FoundNo Advanced Directives Records FoundNo Advanced Directives Records Found Additional Source Comments INFORMATION SOURCE (unrecogn ized section and content) DATE CREATED AUTHOR 12/19/2021 [facility] DATE CREATED AUTHOR AUTHOR'S ORGANIZ ATION 07/23/2023 [facility] EPIC DATE CREATED AUTHOR AUTHOR'S ORGANIZ ATION 07/29/2023 [facility] DATE CREATED AUTHOR AUTHOR'S ORGANIZ ATION 08/25/2023 [facility] Patient Care team informatio n (unrecognized section and content) Personnel Name: SUZE JOHNSON CNP Address: Address: [address] [place] [id number] Personnel Name: SUZE JOHNSON CNP Address: Address: [address] [place] [address] FOR RECORDS PERTAINING TO PATIENTS WHO ARE OR HAVE BEEN ENROLLED IN A CHEMICAL DEPENDENCY/SUBSTANCEABUSE PROGRAM, SOME INFORMATION MAY BE OMITTED. This clinical summary was aggregated from multiple sources. Caution should be exercised in using it in the provision of clinical care. This summary normalizes information from multiple sources, and as a consequence, information in this document may materially change the coding, format and clinical context of patient data. In addition, data may be omitted in some cases. CLINICAL DECISIONS SHOULD BE BASED ON THE PRIMARY CLINICAL RECORDS. [facility] [employer] [facility]. provides no warranty or guarantee of the accuracy or completeness of information in this document.
[2023-09-04] MEDS: REGADENOSON 0.4 MG/5 ML SYRINGE 0.400000000000000022 MG IV (10:09)
--- NOTE | 2023-09-04 10:30 | PC.NURSE ---
Nursing Note Cardiac Stress Test Reviewed: Medication, allergies and patient history reviewed. Stress Test: [ x] Patient tolerated stress test well. [ ] Patient unable to tolerate walking on treadmill. Switched to Lexiscan stress test. [ ] No chest pain noted per patient [ x] Chest pain that resolved prior to leaving stress lab. [ ] No dyspnea noted. [x ] Dyspnea that resolved prior to leaving stress lab. [x ] Patient left stress lab asymptomatic and hemodynamically stable. [ ] Patient taken to the Emergency Room due to non-resolving symptoms following stress test. [ ] Patient achieved target heart rate. [ ] Patient unable to achieve target heart rate. [ ] Aminophylline administered as reversal agent to Lexiscan (Regadenoson). [ ] Nitro administered. Nursing Comments: Pt had lexiscan done. Pt did have some chest tightness and dyspnea after the lexiscan was injected. Chest tightness and dyspnea resolved within 5 minutes of onset. Pt had no dyspnea and no chest pain prior to leaving stress lab. Pt stated that she has more dyspnea and chest pain after going up stairs then she did today after the injection. Pt was taken down to cafeteria for breakfast prior to second set of scans.
--- NOTE | 2023-09-04 12:54 | P.STRESS_ITS ---
Stress Test Stress Test Allergies Allergy/AdvReac Type Severity Reaction Status Date / Time No Known Drug Allergies Allergy Verified 06/02/23 22:09 Requesting physician: SUZE JOHNSON Procedure: Lexiscan Cardiolite stress test General Information: Reason for Stress Test: Dyspnea, chest pain Cardiac History and Risk Factors: History of stent placement. Resting 12 - Lead Electrocardiogram: Rate & rhythm: Sinus arrhythmia with average rate of 68. [place]: Normal ST-segments: ST segment depression and inverted T-waves in II, III, aVF, V4 & V5 Stress Test: Protocol: Lexiscan protocol was initiated with injection of 0.4mg Lexiscan IV push followed by Cardiolite. Blood pressure: Initial & maximum: 184/104 Rate & rhythm: A sinus arrhythmia persisted through the study.? The maximum heart rate was 85, which was 59% of the maximum predicted heart rate. ST-segments & T-waves: After injection of Lexiscan, downsloping ST-segments of the inferolateral leads assumed a horizontal orientation. No other leads appeared affected. Patient response/symptoms: Similar chest tightness and dyspnea, but not to the degree as she experiences at home. Interpretation: Non-diagnostic Lexiscan given abnormal baseline inferolateral ST-segment downsloping which became more horizontal after Lexiscan. Similar subjective findings to chief complaint. Cardiolite imaging interpretation will be reported separately. Clinical correlation required.?
== END 2023-09-04 08:17 | disposition home or self-care (01) ==
LOC: NM 08:16
PROVIDERS: PCP Nurse Practitioner Family; Visit Provider Nurse Practitioner Family
DX: R06.02 Shortness of breath (principal)
CPT/HCPCS: 78452; 93017; A9500; J2785

== ENCOUNTER 2023-10-10 11:32 | Outpatient (OUT) | payer OTHER, SELFPAY ==
--- OUTSIDE RECORDS SUMMARY | 2023-10-10 11:36 | XMS_ITS | CCD ---
Author Organization [facility] Care Team Providers Care Bioinformatics Research Technician Name Role Phone Unavailable Unavailable Yanna Meeks Unavailable SUZE JOHNSON Primary Care Unavailable MARKER, DR OCHOA Admitting Unavailable MARKER, DR OCHOA Attending Unavailable MARKER, DR OCHOA Consulting Unavailable HAMZAH ELDRIDGE Consulting Unavailable ELIZABETH, SUZE Admitting Unavailable ELIZABETH, SUZE Attending Unavailable ELIZABETH, SUZE Primary Care Unavailable ELIZABETH, SUZE Admitting Unavailable ELIZABETH, SUZE Attending Unavailable EILZABETH, SUZE Primary Care Unavailable ROCIO, DR RAMEZ Knight Consulting Unavailable SUZE JOHNSON Consulting Unavailable ELIZABETH, SUZE Primary Care Unavailable MAMTA GODINEZ Admitting Unavailable MAMTA GODINEZ Attending Unavailable ROCIO, DR RAMEZ Knight Consulting Unavailable MAMTA GODINEZ Consulting Unavailable YVAN FLORES Consulting Unavailable SUZE JOHNSON Primary Care Physician LAURA FOX Referring Unavailable OrzeJeanie mera X Attending Unavailable Orzech, Jeanie X Admitting Unavailable Jeanie Hennessy Attending Unavailable MD Yanna Meeks Primary Care Provider [phone] DO Viridiana Titus Attending Provider SILVIA TITUS Attending Unavailable YANNA MEEKS Primary Care Unavailable Yanna Meeks Primary Care Unavailable Viridiana Titus Attending Unavailable Viridiana Titus Admitting Unavailable Viridiana Titus Admitting Unavailable Yanna Meeks Primary Care Unavailable Viridiana Titus Attending Unavailable Medications Current Medications Medication Drug Class(es) Dates Sig (Normalized) Sig (Original) acetaminophen 500 mg oral tablet (2 sources) Start: 11-02-2020 take 2 tablets by mouth every six hours as needed for pain Tylenol Extra Strength 500 mg oral tablet 1,000 mg = 2 tab(s), Oral, q6hr, PRN as needed for pain, Refills(s) 0 Start Date: 11/02/20 Status: Ordered aspirin 81 mg chewable tablet (9 sources) Platelet Aggregation Inhibitor, Nonsteroidal Anti-inflammatory Drug Start: 09-19-2019 take 81 mg by mouth once daily in the evening Aspirin Active 81 MG PO Every evening September 19, 2019 12:00am Start: 11-04-2015 take 81 mg by mouth once daily aspirin 81 mg, Oral, Daily, Refills(s) 0, Blood Thinner Start Date: 11/04/15 Status: Ordered Aspirin EC 81 MG TBEC TAKE 1 TABLET Daily Quantity: 90 Refills: 3 Ordered: 08-Dec-2021 Silvia Titus DO Active Calcium Citrate / Vitamin D (2 sources) Start: 11-02-2020 take 1 tablet by mouth once daily calcium-vitamin D 1 tab, Oral, Daily, Refill(s) 0, Prophylaxis Start Date: 11/02/20 Status: Ordered cholecalciferol 0.125 mg oral tablet (7 sources) Vitamin D Start: 09-19-2019 take 1 tablet by mouth once daily Cholecalciferol (Vitamin D3) (Vitamin D3) 125 mcg (5,000 unit) Tablet Active 61446 UNIT PO Daily September 19, 2019 12:00am take 1 capsule by mouth once mitchell ly Vitamin D3 125 MCG (5000 UT) Oral Capsule TAKE 1 CAPSULE Daily Quantity: 0 Refills: 0 Ordered: 08-Dec-2021 DO Active diclofenac sodium 75 mg delayed release oral tablet (7 sources) Nonsteroidal Anti-inflammatory Drug Start: 09-21-2023 take 75 mg by mouth twice daily Diclofenac Sodium Active 75 MG PO Twice daily September 21, 2023 12:00am take 1 tablet by mouth once sonam y Diclofenac Sodium 75 MG Oral Tablet Delayed Release Take 1 tablet daily Quantity: 90 Refills: 1 Ordered: 08-Dec-2021 DO Active losartan potassium 100 mg oral tablet (9 sources) Angiotensin 2 Receptor Shantelle Start: 09-19-2019 take 100 mg by mouth once daily in the evening Losartan Active 100 MG PO Every evening September 19, 2019 12:00am 24 hr nitroglycerin 0.4 mg/hr transdermal system (4 sources) Nitrate Vasodilator Start: 09-19-2019 Nitroglycerin (Nitrostat) 0.4 mg tablet, sublingual Active 0.4 MG SUBLINGUAL Q5M 20 September 19, 2019 12:00am do not exceed 3 doses per episode Start: 09-19-2019 apply 0.4 mg transde rmal route every hour, then apply 1 dose transdermal route every twenty-four hours Nitroglycerin (Nitro-Dur) 0.4 mg/hr patch 24 hour Active 1 PATCH TRANSDERML Daily 30 September 19, 2019 12:00am allow nitrate-free interval of approx. 10-12 hrs per 24-hour period rosuvastatin calcium 40 mg oral tablet (9 sources) HMG-CoA Reductase Inhibitor Start: 09-19-2019 take 40 mg by mouth once daily in the evening Rosuvastatin Active 40 MG PO Every evening September 19, 2019 12:00am Completed/Discontinued Medications Medication Drug Class(es) Dates Sig (Normalized) Sig (Original) smoking cessation 12 hr buPROPion hydrochloride 150 mg extended release oral tablet (2 sources) Aminoketone Start: 09-19-2019 End: 09-21-2023 take 150 mg by mouth once daily Bupropion Hcl (Smoking Deter) Discontinued 150 MG PO Daily September 19, 2019 12:00am September 21, 2023 8:25am gabapentin 300 mg oral capsule (2 sources) Anti-epileptic Agent Start: 09-19-2019 End: 09-21-2023 take 300 mg by mouth once daily at bedtime Gabapentin Discontinued 300 MG PO Daily at bedtime September 19, 2019 12:00am September 21, 2023 8:25am metoprolol tartrate 25 mg oral tablet (10 sources) beta-Adrenergic Shantelle Start: 11-02-2020 take 1 tablet by mouth twice daily metoprolol 25 mg ER Tab 25 mg = 1 tab(s), Oral, BID, Refills(s) 0, High blood pressure Start Date: 11/02/20 Status: Ordered Start: 09-19-2019 take 25 mg by mouth twice sonam y Metoprolol Tartrate Active 25 MG PO Twice daily 60 September 19, 2019 12:00am Vitamin B Complex-Folic Acid (B Complex 100) 0.4 mg Tablet (2 sources) Start: 09-19-2019 End: 09-21-2023 take 1 tablet by mouth once daily Vitamin B Complex-Folic Acid (B Complex 100) 0.4 mg Tablet Discontinued 1 TAB PO Daily September 19, 2019 12:00am September 21, 2023 8:27am Problems Active Problems Problem Classification Problem Date Documented Date Episodic/Chronic Acute myocardial infarction (2 sources) Myocardial infarction 11-02-2020 Chronic Calculus of urinary tract (6 sources) Personal history of urinary calculi; Translations: [Kidney stone] Onset: 07-11-2021 Episodic Conditions associated with dizziness or vertigo (2 sources) Vertigo 11-02-2020 Episodic Coronary atherosclerosis and other heart disease (20 sources) Coronary arteriosclerosis; Translations: [Coronary atherosclerosis of unspecified type of vessel, mashpee or graft] Onset: 12-19-2021 11-02-2020 Chronic Coronary atherosclerosis and other heart disease (3 sources) Presence of coronary angioplasty implant and graft; Translations: [Coronary angioplasty status] Onset: 07-11-2021 Episodic Diabetes mellitus without complication (1 source) Other abnormal glucose; Translations: [OTHER ABNORMAL GLUCOSE] Onset: 12-16-2021 Episodic Disorders of lipid metabolism (14 sources) Hyperlipidemia; Translations: [Other and unspecified hyperlipidemia] Onset: 12-14-2021 Chronic Essential hypertension (11 sources) Hypertensive disorder; Translations: [Unspecified essential hypertension] Onset: 12-19-2021 05-12-2015 Chronic Genitourinary symptoms and ill-defined conditions (1 source) Microscopic hematuria; Translations: [Other microscopic hematuria] Onset: 07-16-2023 Episodic Nonspecific chest pain (2 sources) Chest pain; Translations: [Chest pain, unspecified] 09-19-2019 Episodic Nutritional deficiencies (1 source) Vitamin D deficiency, unspecified; Translations: [VITAMIN D DEFICIENCY UNSPECIFIED] Onset: 12-16-2021 Chronic Osteoarthritis (3 sources) Unspecified osteoarthritis, unspecified site; Translations: [Arthritis] Onset: 12-19-2021 11-02-2020 Chronic Other aftercare (1 source) custodial (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; 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] Onset: 12-19-2021 Episodic Other aftercare (1 source) Other longterm (current) drug therapy; Translations: [OTH [facility] CURRENT DRUG THERAPY] Onset: 12-19-2021 Episodic Other [...] ureters (2 sources) Hydronephrosis 11-02-2020 Episodic Other lower respiratory disease (2 sources) Shortness of breath; Translations: [Shortness of breath] Onset: 09-20-2023 Episodic Other lower respiratory disease (2 sources) Other forms of dyspnea; Translations: [Other forms of dyspnea] Onset: 09-20-2023 Episodic Other non-traumatic joint disorders (1 source) [...] Classification Problem Date Documented Da te Episodic/Chronic E Codes: Struck by; against (1 source) [...] Test Name Value Interpretation Reference Range Facility CT angio chest PE protocolon 09-26-2023 CT angio chest PE protocol [facility] [address] [place] [address] CT Scan Report Signed Patient: Delfina Church MR#: [id number] : 1945 Acct:[id number] Age/Sex: 78 / F ADM Date: 09/26/23 Loc: CT Room: Type: [facility] Attending Dr: Viridiana Titus DO Copies to: Viridiana Titus DO Ordering Provider: Viridiana Titus DO Date of Service: 09/26/23 CT/CT angio chest PE protocol: R53.83, R55, I20.0, I25.10, R06.02 CTA Chest with PE protocol TECHNIQUE: Axial imaging with 2-D and 3-D reconstruction. 90cc of Isovue-[address] exam was performed using one or more the following dose reduction techniques: Automated exposure control, adjustment of the MA and/or Kv according to patient size, or use of the iterative reconstruction technique. History: Shortness of breath. Syncope. Left upper chest pain. COMPARISON: None THYROID: Unremarkable TRACHEA AND BRONCHI: Patent ESOPHAGUS: Unremarkable. HEART: Within normal limits PERICARDIAL EFFUSION: None CORONARY ARTERY CALCIFICATION: None MEDIASTINUM: No adenopathy. No pneumoperitoneum. No mediastinal hematoma. PULMONARY TRANG: No hilar mass or adenopathy is seen. THORACIC AORTA Unremarkable PULMONARY EMBOLUS: None LUNG NODULE None LUNGS: Lungs are clear PLEURAL EFFUSION: None PNEUMOTHORAX: No pneumothorax seen. CHEST WALL: No abnormality AXILLA: Unremarkable BONY STRUCTURES degenerative change UPPER ABDOMEN: A 2 cm caudate lobe cyst cholecystectomy 2 mm nonobstructing right renal calculus. Mild reflux of contrast into the IVC. Left superior vena cava CT/CT angio chest PE protocol IMPRESSION: No acute pulmonary embolus. Impression dictated by: Niko Dickson M.D.09/26/2023 3:12 PM Dictation Location: [place] [address] Transcribed By: JUSTYNA 09/26/23 1512 Dictated By: Niko Dickson DO 09/26/23 1507 Signed By: 09/26/23 1512 Normal [facility] Activated partial thrombopla stin time (aPTT) in platelet poor plasma by coagulation aOrdered By: Viridiana Titus on 09-21-2023 aPTT Coag (PPP) [Time] 27.4 s 25.1-36.5 [facility] Comment on above: A hematocrit value g reater than 55% may lead to inaccurate results in coagulation testing. Patients having hematocrit values >55% require a special collection tube for coagulation studies. Please contact the laboratory at [phone] for redraw instructions. Automated basophil %Ordered By: Viridiana Titus on 09-21-2023 Basophils/100 WBC (Bld) 0.8 % Normal . [facility] Comment on above: Performed By: #### L IPID, CREAT, BUN, CBC, LYTES, PP #### [address] Automated basophil countOrde red By: Viridiana Titus on 09-21-2023 Basophils (Bld) [#/Vol] 0.1 10*3/uL Normal 0.0-0.2 [facility] Comment on above: Result Comment: PERF ORMED BY: [place] [address] PATHOLOGIST SCRAP SORTER GRETEL CALIXTO M.D. Performed By: #### L IPID, CREAT, BUN, CBC, LYTES, PP #### [address] Automated blood monocyte cou ntOrdered By: Viridiana Titus on 09-21-2023 Monocytes (Bld) [#/Vol] 0.6 10*3/uL Normal 0.0-0.8 [facility] Comment on above: Performed By: #### L IPID, CREAT, BUN, CBC, LYTES, PP #### [address] Automated eosinophil %Ordere d By: Viridiana Titus on 09-21-2023 Eosinophils/100 WBC (Bld) 2.0 % Normal . [facility] Comment on above: Performed By: #### L IPID, CREAT, BUN, CBC, LYTES, PP #### [address] Automated eosinophil countOr dered By: Viridiana Titus on 09-21-2023 Eosinophils (Bld) [#/Vol] 0.1 10*3/uL Normal 0.0-0.45 [facility] Comment on above: Performed By: #### L IPID, CREAT, BUN, CBC, LYTES, PP #### [facility] [address] Automated monocyte %Ordered By: Viridiana Titus on 09-21-2023 Monocytes/100 WBC (Bld) 8.6 % Normal . [facility] Comment on above: Performed By: #### L IPID, CREAT, BUN, CBC, LYTES, PP #### [address] Automated neutrophil %Ordere d By: Viridiana Titus on 09-21-2023 Neutrophils/100 WBC (Bld) 66.4 % Normal . [facility] Comment on above: Performed By: #### L IPID, CREAT, BUN, CBC, LYTES, PP #### [address] Carbon dioxide, total [Moles /volume] in Serum or PlasmaOrdered By: Viridiana Titus on 09-21-2023 CO2 [Moles/Vol] 29.1 mmol/L Normal 21.0-31.0 [facility] Comment on above: Performed By: #### L IPID, CREAT, BUN, CBC, LYTES, PP #### [facility] [address] [place] [address] [place] Chloride [Moles/volume] in S nohemy or PlasmaOrdered By: Viridiana Titus on 09-21-2023 Chloride [Moles/Vol] 108 mmol/L High 98-107 [facility] Comment on above: Performed By: #### L IPID, CREAT, BUN, CBC, LYTES, PP #### [address] Cholesterol [Mass/volume] in Serum or PlasmaOrdered By: Viridiana Titus on 09-21-2023 Cholesterol [Mass/Vol] 133 mg/dL Low 140-200 [facility] Comment on above: Chol less than 200 m g/dl low riskChol 201-239 mg/dl borderline riskChol 240 mg/dl and greater high risk Result Comment: Chol less than 200 mg/dl low risk Chol 201-239 mg/dl borderline risk Chol 240 mg/dl and greater high risk Performed By: #### L IPID, CREAT, BUN, CBC, LYTES, PP #### [facility] [address] [place] [id number] [facility] Cholesterol in LDL Calc [Mas s/Vol]Ordered By: Viridiana Titus on 09-21-2023 Cholesterol in LDL [Mass/Vol] 68 mg/dL 0-100 [facility] Comment on above: LDL ATP III CLASSIFI CATIONLDL less than 100 mg/dL OptimalLDL 100-129 mg/dL Near or above optimalLDL 130-159 mg/dL Borderline highLDL 160-189 mg/dL HighLDL greater than 189 mg/dL Very high Cholesterol in VLDL Calc [Ma ss/Vol]Ordered By: Viridiana Titus on 09-21-2023 Cholesterol in VLDL [Mass/Vol] 28 mg/dL [facility] Coagulation Profileon 2023 aPTT Coag (Bld) [Time] 27.4 s Normal 25.1-36.5 [facility] Comment on above: Result Comment: A he matocrit value greater than 55% may lead to inaccurate results in coagulation testing. Patients having hematocrit values >55% require a special collection tube for coagulation studies. Please contact the laboratory at [phone] for redraw instructions. PERFORMED BY: [place] [address] PATHOLOGIST SCRAP SORTER GRETEL CALIXTO M.D. Performed By: #### L IPID, CREAT, BUN, CBC, LYTES, PP #### [facility] [address] [place] [id number] [facility] Complete Blood Count Auto Di ffon 09-21-2023 Mean Corpuscular HGB Conc 33.1 g/dL Normal 32.0-35.0 [facility] Comment on above: Performed By: #### L IPID, CREAT, BUN, CBC, LYTES, PP #### [facility] [address] NRBC% 0.0 /100{WBC} Normal 0-0.5 [facility] Comment on above: Performed By: #### L IPID, CREAT, BUN, CBC, LYTES, PP #### [address] Creatinineon 09-21-2023 Creatinine Clr Calc Pharmacy 64.00 Normal [facility] Comment on above: Performed By: #### L IPID, CREAT, BUN, CBC, LYTES, PP #### [address] GFR/1.73 sq M.predicted MDRD (S/P/Bld) [Vol rate/Area] mL/min/{1.73_m2} Normal [facility] Comment on above: Performed By: #### L IPID, CREAT, BUN, CBC, LYTES, PP #### [address] Creatinine [Mass/volume] in Serum or PlasmaOrdered By: Viridiana Titus on 09-21-2023 Creatinine [Mass/Vol] 0.85 mg/dL Normal 0.60-1.20 [facility] Comment on above: Performed By: #### L IPID, CREAT, BUN, CBC, LYTES, PP #### [place] [address] [place] ECG 12 lead ECGon 09-21-2023 ECG 12 lead ECG [facility] [place] [address] [place] [address] Electrocardiograph Report Signed Patient: Delfina Church MR#: [id number] : 1945 Acct:[id number] Age/Sex: 78 / F ADM Date: 09/21/23 Loc: Room: Type: [facility] Attending Dr: Viridiana Titus DO Ordering Provider: Viridiana Titus DO Date of Service: 09/21/2303/04/736 ECG/ECG 12 lead ECG: [facility] Copies to: Test Reason : Blood Pressure : */* mmHG Vent. Rate : 75 BPM Atrial Rate : 75 BPM P-R Int : 160 ms QRS Dur : 92 ms QT Int : 390 ms P-R-T Axes : 58 -16 -72 degrees QTcB Int : 435 ms Sinus rhythm with marked sinus arrhythmia Diffuse nonspecific ST and T wave changes Abnormal ECG When compared with ECG of 19-Sep-2019 09:36, No significant change was found Confirmed by CAROLYN LEONE [facility], AGATHA ([id number]) on 09/21/2023 4:25:26 PM Referred By: Electronically Signed By: AGATHA HURTADO MD [facility] Transcribed By: MUS Signed By Agatha Hurtado MD, [facility] 09/21/23 1625 Normal [facility] Erythrocyte distribution wid th [Ratio] by Automated countOrdered By: Viridiana Titus on 09-21-2023 Erythrocyte distribution width (RBC) [Ratio] 13.6 % Normal 11.9-15.3 [facility] Comment on above: Performed By: #### L IPID, CREAT, BUN, CBC, LYTES, PP #### [facility] [address] [place] [address] Erythrocytes [#/volume] in B lood by Automated countOrdered By: Viridiana Titus on 09-21-2023 RBC (Bld) [#/Vol] 4.29 10*6/uL Normal 3.60-5.00 [facility] Comment on above: Performed By: #### L IPID, CREAT, BUN, CBC, LYTES, PP #### [facility] [address] [place] [address] Hematocrit [Volume Fraction] of Blood by Automated countOrdered By: Viridiana Titus on 09-21-2023 Hematocrit (Bld) [Volume fraction] 40.9 % Normal 34.0-46.4 [facility] Comment on above: Performed By: #### L IPID, CREAT, BUN, CBC, LYTES, PP #### [facility] [address] [place] [address] Hemoglobin [Mass/volume] in BloodOrdered By: Viridiana Titus on 09-21-2023 Hemoglobin (Bld) [Mass/Vol] 13.5 g/dL Normal 11.8-15.4 [facility] Comment on above: Performed By: #### L IPID, CREAT, BUN, CBC, LYTES, PP #### [facility] [address] INR in Platelet poor plasma by Coagulation assayOrdered By: Viridiana Titus on 09-21-2023 INR Coag (PPP) [Relative time] 0.9 {INR} Normal [facility] Comment on above: INR Therapeutic Rang e A) Pre- and Peroperative OAT started two weeks before surgery. NOT HIP SURGERY: 1.5 - 2.5 HIP SURGERY: 2 - 3B) Primary and secondary prevention of venous THROMBOSIS: 2 - 3C) Active venous thrombosis, pulmonary embolismand prevention of recurrent venous thrombosis: 2 - 3D) Prevention of arterial thromboembolismincluding patients with mechanical heart valves: 3 - 4.5 Result Comment: INR Therapeutic Range A) Pre- and Peroperative OAT started two weeks before surgery. NOT HIP SURGERY: 1.5 - 2.5 HIP SURGERY: 2 - 3 B) Primary and secondary prevention of venous THROMBOSIS: 2 - 3 C) Active venous thrombosis, pulmonary embolism and prevention of recurrent venous thrombosis: 2 - 3 D) Prevention of arterial thromboembolism including patients with mechanical heart valves: 3 - 4.5 Performed By: #### L IPID, CREAT, BUN, CBC, LYTES, PP #### [facility] [address] Leukocytes [#/volume] correc sheryl for nucleated erythrocytes in Blood by Automated counOrdered By: Viridiana Titus on 09-21-2023 WBC corrected for nucl RBC Auto (Bld) [#/Vol] 6.7 10*3/uL 3.8-11.6 [facility] Leukocytes [#/volume] in Blo od by Automated countOrdered By: Viridiana Titus on 09-21-2023 WBC (Bld) [#/Vol] 6.7 10*3/uL Normal 3.8-11.6 [facility] Comment on above: Performed By: #### L IPID, CREAT, BUN, CBC, LYTES, PP #### [facility] [address] Lipid Panelon 09-21-2023 LDL Cholesterol,Calculated 68 mg/dL Normal 0-100 [facility] Comment on above: Result Comment: LDL ATP III CLASSIFICATION LDL less than 100 mg/dL Optimal LDL 100-129 mg/dL Near or above optimal LDL 130-159 mg/dL Borderline high LDL 160-189 mg/dL High LDL greater than 189 mg/dL Very high Performed By: #### L IPID, CREAT, BUN, CBC, LYTES, PP #### [address] Triglyceride w/Reflex 140 mg/dL Normal 0-149 [facility] Comment on above: Result Comment: TRIG ATP III CLASSIFICATION TRIG less than 150 mg/dL Normal TRIG 150-199 mg/dL Borderline high TRIG 200-500 mg/dL High TRIG greater than 500 mg/dL Very high Standard traceable to the Center for Disease Conrtrol and Prevention (CDC) test method. Performed By: #### L IPID, CREAT, BUN, CBC, LYTES, PP #### [address] VLDL CHOLESTEROL 28 mg/dL Normal [facility] Comment on above: Performed By: #### L IPID, CREAT, BUN, CBC, LYTES, PP #### [place] [address] [place] Lymphocytes [#/volume] in Bl ood by Automated countOrdered By: Viridiana Titus on 09-21-2023 Lymphocytes (Bld) [#/Vol] 1.5 10*3/uL Normal 1.00-4.8 [facility] Comment on above: Performed By: #### L IPID, CREAT, BUN, CBC, LYTES, PP #### [place] [address] [place] Lymphocytes/100 leukocytes i n Blood by Automated countOrdered By: Viridiana Titus on 09-21-2023 Lymphocytes/100 WBC (Bld) 22.2 % Normal . [facility] Comment on above: Performed By: #### L IPID, CREAT, BUN, CBC, LYTES, PP #### [place] [address] [place] MCH [Entitic mass] by Automa sheryl countOrdered By: Viridiana Titus on 09-21-2023 MCH (RBC) [Entitic mass] 31.6 pg Normal 24.7-34.3 [facility] Comment on above: Performed By: #### L IPID, CREAT, BUN, CBC, LYTES, PP #### [facility] [address] [place] [address] MCHC Auto (RBC) [Mass/Vol]Or dered By: Viridiana Titus on 09-21-2023 MCHC (RBC) [Mass/Vol] 33.1 g/dL 32.0-35.0 [facility] MCV [Entitic volume] by Auto mated countOrdered By: Viridiana Titus on 09-21-2023 MCV (RBC) [Entitic vol] 95.5 fL Normal 80-100 [facility] Comment on above: Performed By: #### L IPID, CREAT, BUN, CBC, LYTES, PP #### [facility] [address] [place] [address] Neutrophils [#/volume] in Bl ood by Automated countOrdered By: Viridiana Titus on 09-21-2023 Neutrophils (Bld) [#/Vol] 4.4 10*3/uL Normal 1.8-7.7 [facility] Comment on above: Performed By: #### L IPID, CREAT, BUN, CBC, LYTES, PP #### [facility] [address] [place] [address] No Panel InformationOrdered By: Viridiana Titus on 09-21-2023 Estimated GFR (CKD-EPI) > 60.0 mL/Min [facility] Creatinine Clearance (Chem 64.00 [facility] Nucleated erythrocytes [Pres ence] in Blood by Automated countOrdered By: Viridiana Titus on 09-21-2023 Nucleated RBC Auto Ql (Bld) 0.0 /100{WBC} 0-0.5 [facility] Platelet mean volume [Entiti c volume] in Blood by Automated countOrdered By: Viridiana Titus on 09-21-2023 Platelet mean volume (Bld) [Entitic vol] 8.3 fL Normal 6.3-10.7 [facility] Comment on above: Performed By: #### L IPID, CREAT, BUN, CBC, LYTES, PP #### [facility] [address] Platelets [#/volume] in Bloo d by Automated countOrdered By: Viridiana Titus on 09-21-2023 Platelets (Bld) [#/Vol] 187 10*3/uL Normal 150-450 [facility] Comment on above: Performed By: #### L IPID, CREAT, BUN, CBC, LYTES, PP #### [facility] [address] Potassium [Moles/volume] in Serum or PlasmaOrdered By: Viridiana Titus on 09-21-2023 Potassium [Moles/Vol] 4.2 mmol/L Normal 3.5-5.1 [facility] Comment on above: Performed By: #### L IPID, CREAT, BUN, CBC, LYTES, PP #### [address] Prothrombin time (PT)Ordered By: Viridiana Titus on 09-21-2023 PT Coag (PPP) [Time] 10.4 s Normal 9.0-12.9 [facility] Comment on above: A hematocrit value g reater than 55% may lead to inaccurate results in coagulation testing. Patients having hematocrit values >55% require a special collection tube for coagulation studies. Please contact the laboratory at [phone] for redraw instructions. Result Comment: A he matocrit value greater than 55% may lead to inaccurate results in coagulation testing. Patients having hematocrit values >55% require a special collection tube for coagulation studies. Please contact the laboratory at [phone] for redraw instructions. Performed By: #### L IPID, CREAT, BUN, CBC, LYTES, PP #### [facility] [address] Serum or plasma anion gap de terminationOrdered By: Viridiana Titus on 09-21-2023 Anion gap [Moles/Vol] 10.1 mmol/L Normal 6.0-15.0 [facility] Comment on above: Performed By: #### L IPID, CREAT, BUN, CBC, LYTES, PP #### [facility] [address] Serum or plasma high density lipoprotein (HDL) cholesterol measurementOrdered By: Viridiana Titus on 09-21-2023 Cholesterol in HDL [Mass/Vol] 37 mg/dL Normal 23-92 [facility] Comment on above: HDL CHOL ATP-III CLA SSIFICATION Cardiovascular RiskHDL > or equal to 60 mg/dL LOWHDL < 40 mg/dL HIGH Result Comment: HDL CHOL ATP-III CLASSIFICATION Cardiovascular Risk HDL > or equal to 60 mg/dL LOW HDL < 40 mg/dL HIGH Performed By: #### L IPID, CREAT, BUN, CBC, LYTES, PP #### [facility] [address] [place] [address] Serum or plasma total choles terol/high density lipoprotein (HDL) cholesterol mass ratOrdered By: Viridiana Titus on 09-21-2023 Cholesterol.total/Chol esterol in HDL [Mass ratio] 3.6 {ratio} Normal <5.0 [facility] Comment on above: Result Comment: PERF ORMED BY: [place] [address] PATHOLOGIST SCRAP SORTER GRETEL CALIXTO M.D. Performed By: #### L IPID, CREAT, BUN, CBC, LYTES, PP #### [address] Sodium [Moles/volume] in Ser um or PlasmaOrdered By: Viridiana Titus on 09-21-2023 Sodium [Moles/Vol] 143 mmol/L Normal 136-145 [facility] Comment on above: Performed By: #### L IPID, CREAT, BUN, CBC, LYTES, PP #### [facility] [address] [place] [address] Triglyceride [Mass/volume] i n Serum or PlasmaOrdered By: Viridiana Titus on 09-21-2023 Triglyceride [Mass/Vol] 140 mg/dL 0-149 [facility] Comment on above: TRIG ATP III CLASSIF ICATIONTRIG less than 150 mg/dL NormalTRIG 150-199 mg/dL Borderline highTRIG 200-500 mg/dL High TRIG greater than 500 mg/dL Very highStandard traceable to the Center for Disease Conrtrol and Prevention (CDC) test method. Urea nitrogen [Mass/volume] in Serum or PlasmaOrdered By: Viridiana Titus on 09-21-2023 Urea nitrogen [Mass/Vol] 19 mg/dL Normal - [facility] Comment on above: Performed By: #### L IPID, CREAT, BUN, CBC, LYTES, PP #### [facility] [address] [id number] [facility] Patient Correspondenceon Patient Correspondence [id number] Normal [facility] Calculus Analysison 07-26-19 24 Calcium oxalate dihydrate Infrared spectroscopy (Stone) [Mass fraction] 50 % Invalid Interpretation Code [facility] Comment on above: Performed By: #### 1 [id number] #### [facility] Laboratory [address] [place] [address] Calcium oxalate monohydrate (Stone) [Mass fraction] 30 % Invalid Interpretation Code [facility] Comment on above: Performed By: #### 1 [id number] #### [facility] [address] [id number] Calculus analysis [Interp] Comment Invalid Interpretation Code [facility] Comment on above: Result Comment: Calc ium phosphate (hydroxyl form) includes hydroxyapatite, amorphous calcium phosphate, and whitlockite. Hydroxyapatite is the most common of the calcium phosphate salts found in human kidney stones. Performed By: #### 1 [id number] #### [facility] [address] [place] [address] Color (Stone) Alatorre Invalid Interpretation Code [facility] Comment on above: Performed By: #### 1 [id number] #### [facility] [address] [place] [address] Composition Comment Invalid Interpretation Code [facility] Comment on above: Result Comment: Perc entage (Represents the % composition) Performed By: #### 1 [id number] #### [facility] [address] [place] [address] Disclaimer: Comment Invalid Interpretation Code [facility] Comment on above: Result Comment: This test was developed and its performance characteristics determined by [facility]. It has not been cleared or approved by the Food and Drug Administration. Performed at: [address] [id number] PhD Nerigirishsteffany Deb Performed By: #### 1 [id number] #### [facility] [address] [place] [address] Hydroxyapatite: 20 % Invalid Interpretation Code [facility] Comment on above: Performed By: #### 1 [id number] #### [facility] [address] [place] [address] Laboratory comment Maynor (Report) Comment Invalid Interpretation Code [facility] Comment on above: Result Comment: Maxine diana questions regarding Calculi Analysis contact [facility] at: [phone]. Performed By: #### 1 [id number] #### [facility] [address] [place] [address] Please Note: Comment Invalid Interpretation Code [facility] Comment on above: Result Comment: Calc evonne report will follow via computer, mail or compounder delivery. Performed By: #### 1 [id number] #### [facility] [address] [place] [address] Size (Stone) [Entitic vol] 6x3 Invalid Interpretation Code [facility] Comment on above: Result Comment: Sing le piece received. Performed By: #### 1 [id number] #### [facility] [address] [place] [address] Specimen source subject Nom Comment Invalid Interpretation Code [facility] Comment on above: Result Comment: Not provided Performed By: #### 1 [id number] #### [facility] [address] [place] [address] Stone Photo Comment Invalid Interpretation Code [facility] Comment on above: Result Comment: Phot ograph will follow under a separate cover Performed By: #### 1 [id number] #### [facility] [address] [place] [address] Weight (Stone) 19 mg Invalid Interpretation Code [facility] Comment on above: Performed By: #### 1 [id number] #### [facility] [address] [place] [address] Screenson 07-20-2023 Screens [id number]#1.00TIFF Normal [facility] Ambulatory Visit Summaryon 0 07-19-2023 Ambulatory Visit Summary DELFINA CHURCH :1945 Visit Date:07/19/2023 Ambulatory Visit Instructions Your [...] you for choosing us for your care. [facility] Formson 07-19-2023 Forms [id number]#1.00TIFF [facility] Patient Educationon 07-19-19 Patient Education Nephrology Dietary Guidelines to Help [...] ? 8 oz (237 mL) of milk, jbsuguu-lnhzmirkhalv-gamke milk, and calcium-fortifiedfruit juice. Calcium-fortified means that [...] Spinach (cooked), rhubarb, beets, sweet potatoes, and [place] chard. ? Peanuts. ? Potato chips, ukrainian fries, and baked potatoes with skin on. ? Nuts and nut products. ? Chocolate. ? If you regularly take a diuretic medicine, make sure to eat at least 1 or 2 servings of fruits or vegetables that are high in potassium each day. These include: ? Avocado. ? Banana. ? [place], prune, carrot, or tomato juice. ? Baked [...] fish oil, or vitamin B6. ? Take dmqa-tlg-sgfcomc and prescription medicines only as told by your health care provider. These include supplements. What foods sh (more content not included)... Normal [facility] Urology Office/Clinic Noteon 07-19-2023 Urology Office/Clinic Note Chief Complaint ER follow up due to kidney stones HPI Staff Pt was seen at [facility] due to kidney stones CT SCAN 06/02/23. [...] with voice recognition artificial intelligence software, specifically [employer], [employer] and or [employer]. Substitutions may have occurred due to the [...] cysto/ R stent removal done 01/03/21. [1] [facility] ER 06/02/2023 - left flank pain. CT [...] Patient did previously complete metabolic workup through [facility]. However, unable to find urine results. Lab [...] Urnls Dip Stick Auto w/o Microscopy POC 28860 2. Microhematuria (R31.29: Other microscopic hematuria) UA today with trace leukocytes, no signs of blood at this time. Patient denies recent hematuria or urinary infection. Patient knows to call contact office with any episode of gross hematuria. Ordered: Calculi Analysis Urinary Urnls Dip Stick Auto w/o Microscopy POC 96367 Follow-up With When Contact Information ERNESTINE Hennessy APRN, Jeanie X, FAM, URL Additional Instructions: 4 mos w/ litholink Patient Education Hematuria, Adult Dietary Guidelines to Help Prevent Kidney Stones Kidney Stones, Xabl-nx-[place] Problem List/Past Medical History Ongoing Arthritis Aspirin [...] 06/29/2015 T (more content not included)... Normal [facility] Comment on above: Result Comment: Elec tronically Signed By: ERNESTINE Hennessy APRN, Jeanie Crowder\.br\Date and Time Signed: 07/19/23 09:33 EDT XR ABDOMEN 1 VIEWon 07-19-19 XR ABDOMEN 1 VIEW FINDINGS: Renal shadows [...] Available ED Note-Physicianon 07-07-19 24 ED Note-Physician [id number]#1.00TIFF Normal [facility] Tobacco Screening.on 023 Adult depression screening assessment No [facility] Trunity-60mo usky 250 DO Work Phone: Fall risk assessment a) No falls within the last year [facility] [employer] usky 250 DO Work Phone: Tobacco use status [facility]PH[facility] b) No [facility] [employer]-60mo usky 250 DO Work Phone: US DINO DOP LEG RTon 12-19-19 22 US DINO DOP LEG RT ULTRASOUND OF THE RI T LOWER EXTREMITY. HISTORY: Pain COMPARISON: 12/14/2021 TECHNIQUE: [...] YVAN FLORES Date: 2021-12-18 14:37 Normal [facility] INSULINon 12-15-2021 Insulin 34.1 uIU/mL Critically high 2.6-24.9 [facility] Comment on above: Performed By: #### I NSULIN ####[facility] [address] [place], [place] [address]ZwDr. Luther Clark CBC AUTO DIFFon 12-14-2021 BASO # 0.0 103/ul Normal 0.0-0.1 [facility] Comment on above: Performed By: #### C BC #### [facility] [address] [address] [address] uLther Clark Basophils/100 WBC (Bld) 0.6 % Normal 0.2-2.0 [facility] Comment on above: Performed By: #### C BC #### [facility] [address] [address] [address] Luther Clark EO # 0.1 103/ul Normal 0.0-0.7 [facility] Comment on above: Performed By: #### C BC #### [facility] [address] [address] [address] Luther Clark Eosinophils/100 WBC (Bld) 1.3 % Normal 0.9-7.0 [facility] Comment on above: Performed By: #### C BC #### [facility] [address] [address] [address] Luther Clark Erythrocyte distribution width (RBC) [Ratio] 13.1 % Normal 11.0-15.0 [facility] Comment on above: Performed By: #### C BC #### [facility] [address] [address] [address] Luther Clark Hematocrit (Bld) [Volume fraction] 44.0 % Normal 36.0-48.0 [facility] Comment on above: Performed By: #### C BC #### [facility] [address] [address] [address] Luther Clark Hemoglobin (Bld) [Mass/Vol] 13.8 g/dL Normal 12.0-16.0 [facility] Comment on above: Performed By: #### C BC #### [facility] [address] [place] [address] Dr. Luther Clark IG # 0.02 10e3/ul Normal 0.00-0.03 [facility] Comment on above: Performed By: #### C BC #### [facility] [address] [place] [address] Dr. Luther Clark IG % 0.3 % Normal 0.0-0.5 [facility] Comment on above: Performed By: #### C BC #### [facility] [address] [place] [address] Dr. Luther Clark LYMPH # 2.2 103/ul Normal 1.2-3.8 [facility] Comment on above: Performed By: #### C BC #### [facility] [address] [place] [address] Dr. Luther Clark Lymphocytes/100 WBC (Bld) 30.9 % Normal 20.5-60.0 [facility] Comment on above: Performed By: #### C BC #### [facility] [address] [place] [address] Dr. Luther Clark MANUAL DIFF REQ NO Normal [facility] Comment on above: Performed By: #### C BC #### [facility] [address] [place] [address] Dr. Luther Clark MCH (RBC) [Entitic mass] 30.7 pg Normal 26.7-34.0 [facility] Comment on above: Performed By: #### C BC #### [facility] [address] [place] [address] Dr. Luther Clark MCHC (RBC) [Mass/Vol] 31.4 g/dL Normal 29.9-35.2 [facility] Comment on above: Performed By: #### C BC #### [facility] [address] [place] [address] Dr. Luther Clark MCV (RBC) [Entitic vol] 98.0 fL Normal 81.0-99.0 [facility] Comment on above: Performed By: #### C BC #### [facility] [address] [place] [address] Dr. Luther Clark MONO # 0.6 103/ul Normal 0.3-0.8 [facility] Comment on above: Performed By: #### C BC #### [facility] [address] [place] [address] Dr. Luther Clark Monocytes/100 WBC (Bld) 8.5 % Normal 1.7-12.0 [facility] Comment on above: Performed By: #### C BC #### [facility] [address] [place] [address] Dr. Luther Clark NEUT # 4.1 103/ul Normal 1.4-6.5 [facility] Comment on above: Performed By: #### C BC #### [facility] [address] [place] [address] Dr. Luther Clark Neutrophils/100 WBC (Bld) 58.4 % Normal 43.0-75.0 [facility] Comment on above: Performed By: #### C BC #### [facility] [address] [place] [address] Dr. Luther Clark Platelet mean volume (Bld) [Entitic vol] 9.8 fL Normal 9.5-13.5 [facility] Comment on above: Performed By: #### C BC #### [facility] [address] [place] [address] Dr. Luther Clark PLT 230 103/ul Normal 150-450 [facility] Comment on above: Performed By: #### C BC #### [facility] [address] [place] [address] Dr. Luther Clark RBC 4.49 106/ul Normal 4.20-5.40 [facility] Comment on above: Performed By: #### C BC #### [facility] [address] [place] [address] Dr. Luther Clark WBC 7.1 103/ul Normal 4.0-11.0 [facility] Comment on above: Performed By: #### C BC #### [facility] [address] [place] [address] Dr. Luther Clark FREE THYROXINE INDEX T7on FTI 2.33 Normal 1.30-4.50 [facility] Comment on above: Performed By: #### T 7, TSH, CMP, LIPID ####[facility] [address] [place], [place] [id number] Clark T3U 31.0 % Normal 30.0-39.0 [facility] Comment on above: Performed By: #### T 7, TSH, CMP, LIPID ####[facility] [address] [place] [id number]. Luther Clark T4 [Mass/Vol] 7.50 ug/dL Normal 4.80-13.90 [facility] Comment on above: Performed By: #### T 7, TSH, CMP, LIPID ####[facility] [address] [place] [id number] Clark GLYCOHEMOGLOBIN A1Con 2021 ADA RECOMMENDATION SEE BELOW Normal [facility] Comment on above: Result Comment: ADA RECOMMENDED LIMIT 4.0 - 6.0 ADA THERAPEUTIC TARGET < 7.0 ACTION SUGGESTED > 7.0 Performed By: #### A 1C #### [facility] [address] [address] [address] Luther Clark Glucose [Mass/Vol] 126 mg/dL Normal [facility] Comment on above: Performed By: #### A 1C #### [facility] [address] [address] [address] Luther Clark HbA1c (Bld) [Mass fraction] 6.0 % Normal 4.5-6.2 [facility] Comment on above: Performed By: #### A 1C #### [facility] [address] [address] [address] Luther Clark IRONon 12-14-2021 Iron [Mass/Vol] 60.0 ug/dL Normal 50.0-170.0 [facility] Comment on above: Performed By: #### V ITAD, IRON #### [facility] [address] [address] [address] Luther Clark LIPID PROFILEon 12-14-2021 CHOL-HDL RATIO NORM SEE BELOW Normal [facility] Comment on above: Result Comment: 3.3 - 4.4 LOW RISK 4.4 - 7.1 AVERAGE RISK 7.1 - 11.0 MODERATE RISK >11.0 HIGH RISK Performed By: #### T 7, TSH, CMP, LIPID ####[facility] [address] [place] [id number]. Moriahsaad Clark Cholesterol [Mass/Vol] 141 mg/dL Normal <=200 [facility] Comment on above: Performed By: #### T 7, TSH, CMP, LIPID ####[facility] [address] [place] [id number]. Luther Clark Cholesterol in HDL [Mass/Vol] 49 mg/dL Normal 40-60 [facility] Comment on above: Performed By: #### T 7, TSH, CMP, LIPID ####[facility] [address] [place] [phone]. Luther Clark Cholesterol in LDL [Mass/Vol] 56.4 mg/dL Normal [facility] Comment on above: Performed By: #### T 7, TSH, CMP, LIPID ####[facility] [address] [place] [id number]. Luther Clark Cholesterol.total/Chol esterol in HDL [Mass ratio] 2.9 {ratio} Normal [facility] Comment on above: Performed By: #### T 7, TSH, CMP, LIPID ####[facility] [address] [place] [id number]. Luther Clark HDL NORMAL > or = 60 mg/dl - LO W CARDIOVASCULAR RISK <40 mg/dl - HIGH CARDIOVASCULAR RISK Normal [facility] Comment on above: Performed By: #### T 7, TSH, CMP, LIPID ####[facility] [address] [place] [phone]. Luther Clark LDL CALC NORMAL SEE BELOW Normal [facility] Comment on above: Result Comment: <100 mg/dl OPTIMAL 100 - 129 mg/dl NEAR OR ABOVE OPTIMAL 130 - 159 mg/dl BORDERLINE HIGH 160 - 189 mg/dl HIGH >190 mg/dl VERY HIGH Performed By: #### T 7, TSH, CMP, LIPID ####[facility] [address] [place] [address]Dr. Luther Clark Triglyceride [Mass/Vol] 178 mg/dL Critically high <=150 [facility] Comment on above: Performed By: #### T 7, TSH, CMP, LIPID ####[facility] [address] [place] [address]Dr. Luther Clark VLDL CALC 35.6 mg/dL Normal [facility] Comment on above: Performed By: #### T 7, TSH, CMP, LIPID ####[facility] [address] [place] [address]Dr. Luther Clark PROF 14(COMP METB)on 022 Albumin [Mass/Vol] 3.8 g/dL Normal 3.4-5.0 [facility] Comment on above: Performed By: #### T 7, TSH, CMP, LIPID ####[facility] [address] [place] [address]Dr. Luther Clark Albumin/Globulin [Mass ratio] 1.1 {ratio} Normal [facility] Comment on above: Performed By: #### T 7, TSH, CMP, LIPID ####[facility] [address] [place] [address]Dr. Luther Clark ALP [Catalytic activity/Vol] 117 U/L Critically high 46-116 [facility] Comment on above: Performed By: #### T 7, TSH, CMP, LIPID ####[facility] [address] [place] [address]Dr. Luther Clark ALT [Catalytic activity/Vol] 33 U/L Normal 14-59 [facility] Comment on above: Performed By: #### T 7, TSH, CMP, LIPID ####[facility] [address] [place] [address]Dr. Luther Clark Anion gap [Moles/Vol] 5.7 mmol/L Normal [facility] Comment on above: Performed By: #### T 7, TSH, CMP, LIPID ####[facility] [address] [place] [address]Dr. Luther Clark AST [Catalytic activity/Vol] 18 U/L Normal 15-37 [facility] Comment on above: Performed By: #### T 7, TSH, CMP, LIPID ####[facility] [address] [place] [address]Dr. Luther Clark Bilirubin [Mass/Vol] 1.8 mg/dL Critically high 0.2-1.0 [facility] Comment on above: Performed By: #### T 7, TSH, CMP, LIPID ####[facility] [address] [place] [address]Dr. Luther Clark Calcium [Mass/Vol] 10.5 mg/dL Critically high 8.5-10.1 [facility] Comment on above: Performed By: #### T 7, TSH, CMP, LIPID ####[facility] [address] [place] [address]Dr. Luther Clark Chloride [Moles/Vol] 105 mmol/L Normal 98-107 [facility] Comment on above: Performed By: #### T 7, TSH, CMP, LIPID ####[facility] [address] [place] [address]Dr. Luther Clark CO2 [Moles/Vol] 35.6 mmol/L Critically high 21.0-32.0 [facility] Comment on above: Performed By: #### T 7, TSH, CMP, LIPID ####[facility] [address] [place] [address]Dr. Luther Clark Creatinine [Mass/Vol] 0.90 mg/dL Normal 0.55-1.02 [facility] Comment on above: Performed By: #### T 7, TSH, CMP, LIPID ####[facility] [address] [place] [address]Dr. Luther Clark EGFR-AF TONGAN >60 Normal >=60 [facility] Comment on above: Performed By: #### T 7, TSH, CMP, LIPID ####[facility] [address] [place] [address]Dr. Luther Clark EGFR-NON AF TONGAN >60 Normal >=60 [facility] Comment on above: Performed By: #### T 7, TSH, CMP, LIPID ####[facility] [address] [place] [address]Dr. Luther Clark Globulin (S) [Mass/Vol] 3.4 g/dL Normal [facility] Comment on above: Performed By: #### T 7, TSH, CMP, LIPID ####[facility] [address] [place] [address]Dr. Luther Clark Glucose [Mass/Vol] 99 mg/dL Normal 74-106 [facility] Comment on above: Performed By: #### T 7, TSH, CMP, LIPID ####[facility] [address] [place] [address]Dr. Luther Clark Potassium [Moles/Vol] 4.3 mmol/L Normal 3.5-5.1 [facility] Comment on above: Performed By: #### T 7, TSH, CMP, LIPID ####[facility] [id number] [place] [address]Dr. Luther Clark Protein [Mass/Vol] 7.2 g/dL Normal 6.4-8.2 [facility] Comment on above: Performed By: #### T 7, TSH, CMP, LIPID ####[facility] [id number] [place], [place] [address]Dr. Luther Clark Sodium [Moles/Vol] 142 mmol/L Normal 136-145 [facility] Comment on above: Performed By: #### T 7, TSH, CMP, LIPID ####[facility] [id number] [place] [address]Dr. Moriahlan Clark Urea nitrogen [Mass/Vol] 17.0 mg/dL Normal 7.0-18.0 [facility] Comment on above: Performed By: #### T 7, TSH, CMP, LIPID ####[facility] [id number] [place] [address]Dr. Luther Clark Urea nitrogen/Creatinine [Mass ratio] 18.9 mg/mg Normal [facility] Comment on above: Performed By: #### T 7, TSH, CMP, LIPID ####[facility] [id number] [place] [address]DrLuther Clark TSHon 12-14-2021 TSH 1.450 uIU/mL Normal 0.358-3.740 [facility] Comment on above: Performed By: #### T 7, TSH, CMP, LIPID ####[facility] [id number] [place], [place] [address]OvDr. Luther Clark US DINO DOP LEG RTon [...] RAMEZ CHAN Date: 2021-12-14 11:40 Normal [facility] VITAMIN D 25 OHon 12-14-2021 VIT D 25-OH 39.8 ng/mL Normal [facility] Comment on above: Performed By: #### V ITAD, IRON #### [facility] [address] [place], [place] [address] Dr. Luther Clark VIT D RANGES SEE BELOW Normal [facility] Comment on above: Result Comment: <20 ng/mL Vit D deficient 20 - <30 ng/mL Vit D insufficient 30 - 100 ng/mL Vit D sufficient >100 ng/mL Potential Toxicity Performed By: #### V ITAD, IRON #### [facility] [address] [place], [place] [address] Dr. Luther Clark Tobacco Screening.on 022 Adult depression screening assessment No [facility] [employer] 250 DO Work Phone: Fall risk assessment b) One or more fall s in the last year [facility] [employer] 250 DO Work Phone: Tobacco use status CPHS b) No [facility] [employer] 250 DO Work Phone: XR HUMERUS RT MIN 2 Von 04-2 XR HUMERUS RT MIN 2 V EXAM: [...] by: [place] Date: 2021-07-08 04:54 Normal [facility] Vital Signs Date Time Vital Sign Value Performing Clinician Chaitanya larson 09-21-2023 12:19-0400 Diastolic blood pressure 77 mm[Hg] MD Yanna Meeks Work Phone: [facility] 09-21-2023 12:19-0400 Heart rate 65 /min MD Yanna Meeks Work Phone: [facility] 09-21-2023 12:19-0400 Respiratory rate 16 /min MD Yanna Meeks Work Phone: [facility] 09-21-2023 12:19-0400 SaO2% (BldA) [Mass fraction] 95 % MD Yanna Meeks Work Phone: [facility] 09-21-2023 12:19-0400 Systolic blood pressure 155 mm[Hg] MD Yanna Meeks Work Phone: [facility] 09-21-2023 08:20-0400 Body height 165.1 cm MD Yanna Meeks Work Phone: [facility] 09-21-2023 08:20-0400 Body temperature 97.6 [degF] MD Yanna Meeks Work Phone: [facility] 09-21-2023 08:20-0400 Body weight 94.5 kg MD Yanna Meeks Work Phone: [facility] 07-19-2023 08:33-0400 Body temperature 98.6 [degF] Jeanie Orzech [facility] 07-19-2023 08:33-0400 Respiratory rate 14 /min Jeanie Orzech [facility] 12-07-2022 09:16-0400 Body height 165.1 cm Yanna M Hoy Work Phone: [facility] 250 DO Work Phone: 12-07-2022 09:16-0400 Body mass index (BMI) [Ratio] 33.61 kg/m2 Yanna M Hoy Work Phone: [facility] 250 DO Work Phone: 12-07-2022 09:16-0400 Body surface area Derived from formula 1.99 m2 Yanna M Hoy Work Phone: [facility] 250 DO Work Phone: 12-07-2022 09:16-0400 Body weight 91.63 kg Yanna M Hoy Work Phone: [facility] 250 DO Work Phone: 12-07-2022 09:16-0400 Diastolic blood pressure 82 mm[Hg] Yanna M Hoy Work Phone: [facility] 250 DO Work Phone: 12-07-2022 09:16-0400 Heart rate 60 /min Yanna M Hoy Work Phone: [facility] 250 DO Work Phone: 12-07-2022 09:16-0400 Systolic blood pressure 108 mm[Hg] Yanna M Hoy Work Phone: [facility] 250 DO Work Phone: 12-08-2021 09:36-0400 Body height 165.1 cm Yanna M Hoy Work Phone: [facility] 250 DO Work Phone: 12-08-2021 09:36-0400 Body mass index (BMI) [Ratio] 34.28 kg/m2 Yanna Buitrago Hoy Work Phone: [facility] 250 DO Work Phone: 12-08-2021 09:36-0400 Body surface area Derived from formula 2 m2 Yanna Buitrago Hoy Work Phone: [facility] 250 DO Work Phone: 12-08-2021 09:36-0400 Body weight 93.44 kg Yanna Buitrago Hoy Work Phone: [facility] 250 DO Work Phone: 12-08-2021 09:36-0400 Diastolic blood pressure 76 mm[Hg] Yanna Buitrago Hoy Work Phone: [facility] 250 DO Work Phone: 12-08-2021 09:36-0400 Heart rate 64 /min Yanna Buitrago Hoy Work Phone: [facility] 250 DO Work Phone: 12-08-2021 09:36-0400 Systolic blood pressure 134 mm[Hg] Yanna Buitrago Hoy Work Phone: [facility] 250 DO Work Phone: Encounters Encounter Date Encounter Type Care Provider Facility Start: 09-26-2023 End: 09-26-2023 Patient encounter procedure MD Yanna Meeks Work Phone: [facility] [place] Work Phone: Start: 09-26-2023 End: 09-26-2023 ambulatory MD Yanna Meeks Work Phone: [facility] Work Phone: Start: 09-21-2023 End: 09-21-2023 Admission to same day surgery center MD Yanna Meeks Work Phone: [facility] Work Phone: Start: 09-21-2023 End: 09-21-2023 ambulatory MD Yanna Meeks Work Phone: [facility] Work Phone: Start: 09-20-2023 End: 09-20-2023 ambulatory [facility] Start: 07-19-2023 End: 07-20-2023 ambulatory LAURA FOX Not Available Start: 07-19-2023 End: 07-19-2023 Lab Drop off Jeanie X Orzech [facility] Start: 07-19-2023 End: 07-19-2023 ambulatory Jeanie X Orzech [facility] Start: 07-19-2023 End: 07-19-2023 Patient encounter procedure Jeanie X Orzech [facility] Start: 12-07-2022 Office outpatient vi sit 15 minutes Yanna M Hoy Work Phone: [facility] 250 DO Work Phone: Start: 05-03-2022 Rx Renewal Yanna M Hoy Work Phone: [facility] 250 DO Work Phone: Start: 04-17-2022 Rx Renewal Yanna M Hoy Work Phone: [facility] 250 DO Work Phone: Start: 12-18-2021 End: 12-18-2021 ambulatory SUZE JOHNSON Facility:[facility] Start: 12-14-2021 End: 12-15-2021 ambulatory SUZE JOHNSON Facility:[facility] Start: 12-08-2021 Office outpatient vi sit 15 minutes Yanna M Hoy Work Phone: [facility] 250 DO Work Phone: Start: 10-13-2021 ambulatory SUZELUIS E JOHNSON Facility: [facility] Start: 07-08-2021 End: 07-08-2021 ambulatory SUZELUIS E YOUMER Facility:[facility] Start: 06-29-2021 Rx Renewal Silvia Ventura n DO Work Phone: [facility] 250 DO Work Phone: Procedures Date Procedure Procedure Detail Performing Clinician Start: 09-26-2023 CT angiography of thorax MD Yanna Meeks Work Phone: Start: 09-21-2023 CL [facility] & COR Angio (Right) MD Yanna Meeks Work Phone: Start: 09-21-2023 MD Yanna Meeks Work Phone: Start: 01-03-2021 Cystoscopic removal of ureteric stent [...] sided 80% r elief Arthroplasty of knee Yanna Iftikhar Meeks Work Phone: Cardiac catheterization Daniel Meeks Work Phone: Cataract surgery Yanna M H oy Work Phone: Cholecystectomy Yanna Buitrago Ho y Work Phone: Cholecystectomy Jeanie Orzec h history of cervical vertebral fracture Jeanie Orzech History of percutane ous transluminal coronary angioplasty History of PTCA Yanna Buitrago Hoy Work Phone: Incision of ovary Yanna Buitrago Hocharlie Work Phone: Ligation of fallopian tube A urora Orzech Percutaneous translu trevor coronary angioplasty Jeanie Orzech NEGATED: Highlighted row has not occurred! Total colonoscopy Yanna Meeks Work Phone: Plan of Treatment Date Care Activity Detail Author Start: 09-21-2023 [facility] Start: 12-07-2022 FUV, Provider: Silvia Titus, Status: Pen, Time: 9:10 AM FUV, Provider: Silvia Titus, Status: Pen, Time: 9:10 AM [facility] 250 DO Work Phone: Start: 12-08-2021 FUV, Provider: Silvia Titus, Status: Pen, Time: 9:30 AM FUV, Provider: Silvia Titus, Status: Pen, Time: 9:30 AM [facility] 250 DO Work Phone: Patient Education Know your Meds [facility] Work Phone: Patient referral [facility] Work Phone: Immunizations Immunization Date Immunization Notes Care Provider Harpreet cr 12-14-2021 pneumococcal conjuga te vaccine, 13 valent Yanna Meeks Work Phone: [facility] 06-21-2020 Katerin COVID-19 Vaccine 0.5 ML Intramuscular Suspension Yanna Meeks Work Phone: [facility] 12-09-2013 influenza virus vaccine, whole virus Yanna Meeks Work Phone: [facility] 250 DO Work Phone: 12-09-2013 pneumococcal polysaccharide vaccine, 23 valent Yanna Meeks Work Phone: [facility] 250 DO Work Phone: NEGATED: Highlighted row has not occurred!07-19-2023 influenza virus vaccine, unspecified formulation Jeanie Rachaelede [facility] Payers Date Payer Category Payer Self-pay [id number] 2021 Unknown [id number] 1957 Medicare [id number] 1957 Self-pay [id number] 1945 Unknown [id number] [id number] 1945 Unknown [id number] [id number]. 2.593 1945 Unknown [id number] [id number]. 2.593 1945 Unknown [id number] [id number]. 2.593 1945 Unknown [id number] [id number]. 2.1259 1945 Unknown [id number] [id number]. 2.727 1945 Unknown [id number] [id number]. 2.727 1945 Unknown [id number] [id number]. 2.1244 Private Health Insurance [facility] [id number] Unknown [facility] Unknown [id number] [id number]. 2.531 Unknown [id number]. 2.531 Social History Date Type Detail Facility Never a smoker Never a smoker [facility] 250 DO Work Phone: Comment on above: 12-16 oz soda daily; occasioanlly; Start: 07-19-2023 End: 09-21-2023 Tobacco smoking status Never smoked tobacco (finding) [facility] Tobacco smoking status Never [facility] Sex Assigned At Female [facility] Start: 1945 Sex Assigned At Female F [facility] Medical Equipment Procedure Code Equipment Code Equipment Origin al Text Equipment Identifier Dates CYSTOSCOPY STENT INSERTION Unknown 11/25/20 Unknown Unknown FDA Start: 11-25-2020 CYSTOSCOPY RETROGRADE STENT INSERTION Juan Carlos MARTIN MD 12/15/20 Unknown Ureter R {[id number] FDA Start: 12-15-2020 CYSTOSCOPY STENT INSERTION Unknown 11/25/20 Unknown Unknown FDA Start: 11-25-2020 Goals Date Patient Goal Desired Activity /State Functional Status Date Assessment Result Facility 07-19-2023 Functional Status N/A [facility] Procedure note 09-21-2023 Note Date & Type Note Facility 09-21-2023 Procedure note [facility] Evaluation + Plan note 07-19-2023 Note Date & Type Note Facility 07-19-2023 Evaluation + Plan note Diagnostic Tests PendingCalculi Analysis Urinary 07/19/23 [facility] Hospital Discharge instructions 07-19-2023 Note [...] Follow these instructions at home: Medicines Take tyzb-tfj-adwnses and prescription medicines only as told by [...] or the blood stops without treatment. Take falb-syx-gdqqshf and prescription medicines only as told by your health care provider. Drink enough fluid to keep your urine pale yellow. This information is not intended to replace advice given to you by your health care provider. Make sure you discuss any questions you have with your health care provider. Document Revised: 10/27/2020 Document Reviewed: 10/27/2020 Head Held High Patient Education 2022 [employer]. 07/19/2023 09:33:04 Dietary Guidelines to Help Prevent [...] include: ?8 oz (237 mL) of milk, ayrlfdx-kvyvuiupetaq-uxrqt milk, and calcium-fortifiedfruit juice. Calcium-fortified means that [...] ?Spinach (cooked), rhubarb, beets, sweet potatoes, and Guine[place] chard. ?Peanuts. ?Potato chips, ukrainian fries, and baked potatoes with skin on. ?Nuts and nut products. ?Chocolate. If you regularly take a diuretic medicine, make sure to eat at least 1 or 2 servings of fruits or vegetables that are high in potassium each day. These include: ?Avocado. ?Banana. ?[place], prune, carrot, or tomato juice. ?Baked potato. [...] magnesium, fish oil, or vitamin B6. Take ldvu-iqw-wgbusdz and prescription medicines only as told by [...] Casseroles. Pizza. Lasagna. Frozen meals. Potato chips. Yi fries. The items listed above may not [...] provider. Document Revised: 06/08/2022 Document Reviewed: 06/08/2022 Head Held High Patient Education 2022 [employer]. 07/19/2023 09:33:01 Kidney Stones, Jwfl-pl-Vwjh Kidney Stones Kidney stones are rock-like masses [...] Follow these instructions at home: Medicines Take zeru-fja-xqawepc and prescription medicines only as told by [...] provider. Document Revised: 10/31/2021 Document Reviewed: 10/31/2021 [employer]d [employer] Patient Education 2022 [employer]. Follow Up Care 07/12/2023 16:10:30 With:ERNESTINE Hennessy APRN, Jeanie Crowder, MARSHALL, URL Address: When: Unknown Comments:4 mos viridiana/ perez [facility] Clinical Note 12-18-2021 Note Date & Type [...] authenticated by: RAMEZ CHAN Date: 2021-12-18 14:22 [facility] Clinical Note 12-14-2021 Note Date & Type [...] authenticated by: RAMEZ CHAN Date: 2021-12-14 11:57 [facility] Evaluation + Plan note Note Date & Type Note Facility Evaluation + Plan note No data available for this section [facility] Evaluation note Note Date & Type Note Facility Evaluation note No assessment information [facility] Work Phone: Hospital Discharge instructions Note Date & Type Note Facility Hospital Discharge instructions No data available for this section [facility] Hospital Discharge instructions Note Date & Type Note Facility Hospital Discharge instructions Additional Instructions DISCHARGE INSTRUCTIONS FOR CARDIAC COMMERCIAL ASSISTANT PROCEDURE: Heart Cath The following instructions have been prepared to help you care for yourself, or be cared for upon your return home. 1. You were given conscious sedation. Do not operate a vehicle, power tools, make important decisions, or drink alcohol for 24 hours. You might be drowsy or light headed. Return to the Emergency Room if you have trouble breathing, walking or nausea and vomiting. 2. FOR BLEEDING: Apply continuous pressure to the site and call 911. 3. Operative Site Care: Keep the dressing clean and dry. You may change the dressing only if soiled or wet. You may remove the dressing the following morning. You may wash over the puncture site in the shower. If the puncture site is at the wrist no soaking for 3 days. Some bruising or slight swelling may be present. -Signs of infection are redness, warmth, swelling, getting more sore, colored drainage, fever or chills. -Should the arm or leg become cold, numb, blue or white, call the risk intern immediately. 4. ACTIVITY: You are advised to go directly home from the hospital. Restrict your activities for the rest of the day. Resume light or normal activities tomorrow. Do not engage in any activity that will stress the puncture site. Avoid heavy lifting (over 15 lbs.), straining or bending at the catheter site for 48 hours after discharge. If the puncture site is at the wrist do not manipulate wrist for 24 hours and no lifting more than 3 lbs for 3 days. 5. DIET:You may eat your regular diet when you desire. 6. MEDICATIONS: Resume your daily prescription schedule. Prescriptions may be sent with you if needed. Use as directed. When taking pain medications, you may experience dizziness or drowsiness. Do not drink alcohol or drive when taking pain medications. 7. If you should experience episodes of angina e.g. chest discomfort, heaviness, tightness, pressure, burning, with or without radiation to the neck, jaws, arms, or back- Use 1 Nitrostat under your tongue every 5-10 minutes, and up to 3 tablets. If no relief- Call 911 and go to the nearest Emergency Room. -Notify the office for recurrent angina, chest pain or other concerns. You may NOT drive yourself home! Follow the medication instructions provided on your discharge. If the dosages and instructions on this sheet differ from the dosage and instructions on the bottle, follow the instructions on the bottle. [facility] is not responsible for incorrect prescription information provided by the patient during their visit. Do not stop your medications without consulting your health care provider. Please take the list with you to your next doctor's appointment. [facility] Work Phone: Progress note Note Date & Type Note Facility Progress note No data available for this section [facility] Chief Complaint * DELFINA CHURCH is being seen for an annual follow-up [...] panel follow-up in 1 year * DELFINA CHURCH is being seen for an annual follow-up [...] panel follow-up in 1 year * DELFINA CHURCH is being seen for an annual follow-up [...] Found Advance Directives No Advanced Directives Records Found Advance Directive Response Recorded Date/ Time Advance Directives No September 18 10:02am Chief Complaint and Reason for Visit Chief Complaint Shortness of Breath Chief Complaint Shortness of Breath sob angina syncope Additional Source Comments INFORMATION SOURCE (unrecogn ized section and content) DATE CREATED AUTHOR 12/19/2021 [facility] DATE CREATED AUTHOR AUTHOR'S ORGANIZ ATION 07/23/2023 [facility] DATE CREATED AUTHOR AUTHOR'S ORGANIZ ATION 07/29/2023 [facility] DATE CREATED AUTHOR AUTHOR'S ORGANIZ ATION 08/25/2023 [place] [employer] DATE CREATED AUTHOR AUTHOR'S ORGANIZ ATION 09/26/2023 [facility] DATE CREATED AUTHOR AUTHOR'S ORGANIZ ATION 10/02/2023 [facility] Patient Care team informatio n (unrecognized section and content) Team Status: Active Member Role Status Dates Yanna Mekes MD Primary Care Provider Active Team Status: Inactive Member Role Status Dates Yanna Meeks MD Primary Care Provider Active Start: September 21, 2023 End: September 21, 2023 Viridiana Titus DO Attending Provider Active S tart: September 21, 2023 End: September 21, 2023 Team Status: Inactive Member Role Status Dates Yanna Meeks MD Primary Care Provider Active Start: September 26, 2023 End: September 26, 2023 Viridiana Titus DO Attending Provider Active S tart: September 26, 2023 End: September 26, 2023 FOR RECORDS PERTAINING TO PATIENTS WHO ARE [...] BE BASED ON THE PRIMARY CLINICAL RECORDS. [facility] [employer] provides no warranty or guarantee of the accuracy or completeness of information in this document.
[2023-10-10 14:06] LABS: Free T4 0.85 ng/dL (0.76-1.46)
[2023-10-11 05:09] LABS: Triiodothyronine (T3) 120 ng/dL (71-180)
== END 2023-10-10 11:33 | disposition home or self-care (01) ==
LOC: LAB 11:33
PROVIDERS: PCP Nurse Practitioner Family; Visit Provider Internal Medicine Cardiovascular Disease
DX: R53.83 Other fatigue (principal); R55 Syncope and collapse; R06.02 Shortness of breath; I25.110 Atherosclerotic heart disease of native coronary artery with unstable angina pectoris
CPT/HCPCS: 36415; 84439; 84443; 84480

== ENCOUNTER 2024-08-15 13:20 | Outpatient (OUT) | payer OTHER, SELFPAY ==
--- OUTSIDE RECORDS SUMMARY | 2024-01-16 09:39 | XMS_ITS ---
Author Organization [facility] [place] Address [address] [place] [address] Care Team Providers Care Special Delivery Worker Name Role Phone Kristy Gould Primary Care Provider Reason For Referral Diagnosis 1 Screening for colon cancer (Z12.11) Referral Organization [facility] Referring Provider First Name Kristy Referring Provider Last Name Luis Fernando Referring Provider Speciality Family Med icine Referred Provider Brijesh Maurer Referred Provider Specialty General Surg yung Referral Priority Routine REASON FOR VISIT medicare wellness Medications Medication SIG (Take, Route, Frequency, Duration) Notes Start Date End Date Status CeleXA 10 MG 1 tablet Orally Once a day for 30 days 01/17/2024 Active Encounters Encounter Location Date Provider Diagnosis [address] [place] [address] 01/16/2024 Kristy Gould Screening for colon cancer Z12.11 and Screening for osteoporosis Z13.820 Assessments Encounter Date Diagnosis (ICD Code) Assessment Notes Treatment Notes Treatment Clinical Notes Section Notes 01/16/2024 Screening for colon cancer (ICD-10 - Z12.11) 01/16/2024 Screening for osteoporosis (ICD-10 - Z13.820) Plan Of Treatment Medication Medication Name Sig Start Date Stop Date Notes CeleXA 10 MG 1 tablet Orally Once a day for 30 days 2023 Pending Test Test Name Order Date DEXA BONE DENSITY 01/16/2024 Referrals Referral Date Details 01/18/2024 01/18/2024Brijesh Progress Notes * Anaya CHURCH ADOB: [birth year] (78 yo F)Acc No.[id number]:01/16/2024 Patient: Anaya JONES :1945 A ge:78 Y S ex:Female Address:[address] [address], [place] [address] * Refills Start CeleXA Tablet, 10 MG, Orally, 30, 1 tablet, Once a day, 30 days, Refills=1 Subjective: * Chief Complaints: * M edicare wellness * Medical History: * Surgical History: * Hospitalization/Major Diagno stic Procedure: * Medications: Objective: * Vitals: * Physical Examination: Assessment: * Assessment: 1. S creening for colon cancer - Z12.11 (Primary) 2 . S creening for osteoporosis - Z13.820 Plan: * Treatment: 2. S creening for osteoporosis I maging: DEXA BONE DENSITY 3. O thers Start CeleXA Tablet, 10 MG, 1 tablet, Orally, Once a day, 30 days, 30, Refills 1. * Procedure Codes: * true * Date: Generated for Zoraida simpson/Rhonda/eTransmitting on: 0 08/15/2024 01:22 PM EDT Consultation Request Notes Referral Date Referring Provider Referred Provider Not es 01/18/2024 Kristy Gould Michael
--- OUTSIDE RECORDS SUMMARY | 2024-02-25 09:00 | XMS_ITS ---
Author Organization [facility] in [place] Address [address] [place] [address] Care Team Providers Care Tank Farm Attendant Name Role Phone Kristy Gould Primary Care Provider Allergies Allergen (clinical drug ingredient) Drug/Non Drug Allergy documented on EMR Reaction Allergy Type Onset Date Status sulfamethoxazole / trimethoprim Bactrim bad reaction Drug Allergy Active atorvastatin Lipitor does not remember Drug Allergy Active REASON FOR VISIT 1 mo f/u Medications Medication SIG (Take, Route, Frequency, Duration) Notes Start Date End Date Status Nitroglycerin 0.4 MG as directed Sublingual PRN Active Metoprolol Tartrate 25 MG 1 tablet with food Orally Twice a day for 90 days Active Rosuvastatin Calcium 40 MG TAKE 1 TABLET BY MOUTH EVERYDAY AT BEDTIME for 90 days Active Diclofenac Sodium 75 MG TAKE 1 TABLET BY MOUTH TWICE A DAY for 30 days Active Losartan Potassium 100 MG 1 tablet Orall y Once a day for 90 days Active Cholecalciferol 25 MCG (1000 UT) 2 capsule Orally Active Aspirin 81 81 MG 1 tablet Orally Once a day Active Citalopram Hydrobromide 10 MG TAKE 1 TAB LET BY MOUTH EVERY DAY FOR 30 DAYS for 90 days Active Social History Tobacco Use: Social History Observation Description Date Details (start date - stop date) Never Smoker NA - NA Tobacco Control (Standard) Question Answer Notes Tobacco use: Nonsmoker AUDIT-C (Standard) Question Answer Notes Did you have a drink contain ing alcohol in the past year? Yes How often did you have six o r more drinks on one occasion in the past year? Never (0 point) How many drinks did you have on a typical day when you were drinking in the past year? 1 or 2 drinks (0 point) How often did you have a dri nk containing alcohol in the past year? 2 to 4 times a month (2 points) Points 2 Interpretation Negative Vital Signs Weight 205 lbs 02/25/2024 Height 65 in 02/25/2024 Blood pressure systolic 132 mm Hg 02/25/20 24 Blood pressure diastolic 80 mm Hg 024 BMI 34.11 kg/m2 02/25/2024 Encounters Encounter Location Date Provider Diagnosis [facility] [address] [place] [address] 02/25/2024 Kristy Gould Acute depression F32.9 Assessments Encounter Date Diagnosis (ICD Code) Assessment Notes Treatment Notes Treatment Clinical Notes Section Notes 02/25/2024 Acute depression (ICD-10 - F32.9) continue celexa fu one month discussed exercise, getting enough sleep discussed counseling denies SI Plan Of Treatment Treatment Notes Assessment Notes Acute depression continue celexa fu one month discussed exercise, getting enough sleep discussed counseling denies SI Next Appt Details Follow Up: prn,4 Weeks, Reas on: Progress Notes * CARLOSIvaAnaya ADOB: [birth year] (78 yo F)Acc No.[id number]:02/25/2024 Progress Note Patient: Anaya JONES Provider: Shiraz Gould ([facility]), RADIOLOGY TECHNICIAN :1945 A ge:78 Y S ex:Female Date:02/25/2024 Address:[address] [place] [address], [address] [place], [place] [id number] Check In:12:54 PM ESTCheck O ut:01:13 PM EST Subjective: * Chief Complaints: * 1 . 1 mo f/u. * HPI: G eneral: copper top worse when goes home has noticed little better mood with med depression lives self, does go out , pool tonight couple kids and friends supportive. * ROS: G eneral/Constitutional: Depression a dmits. F ever d enies. H eadache d enies. W eight loss d enies. O phthalmologic: Discharge d enies. E ye Pain d enies. I tching and redness d enies. E NT: Nasal discharge d enies. N cameron congestion d enies.?Sore throat d enies. C ardiovascular: Chest tightness/ heavy pressure d enies. R apid heart rate d enies. S welling of extremities d enies. C hest pain d enies. ? R espiratory: Productive cough d enies. C hest pain d enies. C ough d enies. S hortness of breath d enies. W heezing d enies. ? G astrointestinal: Abdominal pain d enies. C onstipation d enies. D ecreased appetite d enies. D iarrhea d enies. N ausea d enies. V omiting?denies. G enitourinary: Urinary incontinence d enies. P ainful urination d enies. M usculoskeletal: Back pain d enies. N beto pain d enies. M uscle aches d enies. S kin: Rash d enies. S kin lesion(s) d enies. ? * Active Problem List R06.02 Shortness of breath Modified On:07/26/2022 Status:confirmed B35.1 Onychomycosis of toe nail Modified On:07/26/2022 Status:confirmed E78.5 Hyperlipidemia Modified On:07/26/2022 Status:confirmed I10 Hypertension Modified On:07/26/2022 Status:confirmed M54.2 Neck pain Modified On:07/26/2022U Status:confirmed R94.31 Abnormal EKG Modified On:07/26/2022U Status:confirmed R73.9 Hyperglycemia Modified On:07/26/2022U Status:confirmed Z90.49 History of cholecyst ectomy Modified On:07/26/2022U Status:confirmed M79.661 Pain of right lower leg Modified On:07/26/2022U Status:confirmed E55.9 Vitamin D deficiency Modified On:07/26/2022 Status:confirmed M25.561 Knee pain, right Modified On:07/26/2022U Status:confirmed M81.0 Osteoporosis Modified On:07/26/2022U Status:confirmed N20.0 Nephrolithiasis Modified On:07/26/2022 Status:confirmed J20.9 Acute bronchitis Modified On:07/26/2022 Status:confirmed M50.30 Degeneration, interv ertebral disc, cervical Modified On:07/26/2022 Status:confirmed R50.9 Fever Modified On:07/26/2022 Status:confirmed N39.0 Urinary tract infect ion Modified On:07/26/2022 Status:confirmed L23.7 Poison elyssa Modified On:07/26/2022 Status:confirmed H26.9 Cataract Modified On:07/26/2022 Status:confirmed E66.3 Over weight Modified On:07/26/2022 Status:confirmed M23.91 Internal derangement of right knee Modified On:07/26/2022 Status:confirmed D22.9 Nevus Modified On:07/26/2022 Status:confirmed Z95.5 S/P coronary artery stent placement Modified On:07/26/2022 Status:confirmed F32.9 Acute depression Modified On:07/26/2022 Status:confirmed R52 Body aches Modified On:07/26/2022 Status:confirmed Z00.00 Encounter for [facility] care examination Modified On:07/26/2022 Status:confirmed B97.89 Unspecified viral in fection, in conditions classified elsewhere and of unspecified site Modified On:07/26/2022 Status:confirmed N83.201 Ovarian cyst, right Modified On:07/26/2022 Status:confirmed S12.9XXA Closed fracture of c ervical vertebra without spinal cord injury, unspecified cervical vertebral level, initial encounter Modified On:07/26/2022 Status:confirmed K59.00 Constipation, unspec ified Modified On:07/31/2022 Status:confirmed R73.03 Prediabetes Modified On:08/10/2023 Status:confirmed * Medical History: P ain of right lower leg, Knee pain, right, Over weight, Nephrolithiasis, Hyperglycemia, Urinary tract infection, Unspecified viral infection, in conditions classified elsewhere and of unspecified site, Body aches, Fever, Shortness of breath, Onychomycosis of toenail, Nevus, Degeneration, intervertebral disc, cervical, Poison elyssa, Acute bronchitis, Acute depression, Hypertension, Vitamin D deficiency, Osteoporosis, Hyperlipidemia, Encounter for preventative adult health care examination, Internal derangement of right knee, Abnormal EKG, Closed fracture of cervical vertebra without spinal cord injury, unspecified cervical vertebral level, initial encounter, Neck pain, Ovarian cyst, right, History of cholecystectomy, S/P coronary artery stent placement, Cataract. * Surgical History: G all Bladder , Ovarian Cyst , Knee Surgery- Right . * Hospitalization/Major Diagno stic Procedure: D enies Past Hospitalization. * Family History: F ather: unknown. M other: unknown. S on(s): alive. D aughter(s): alive. 2 son(s) , 2 daughter(s) - healthy. . patient is adopted. * Social History: T obacco Use: T obacco Control (Standard) T obacco use: N onsmoker D rug/Alcohol: A NICO-C (Standard) D id you have a drink containing alcohol in the past year? Y es H ow often did you have six or more drinks on one occasion in the past year? N ever (0 point) H ow many drinks did you have on a typical day when you were drinking in the past year? 1 or 2 drinks (0 point) H ow often did you have a drink containing alcohol in the past year? 2 to 4 times a month (2 points) P oints 2 I nterpretation N egative * Medications: T aking Aspirin 81(Aspirin) 81 MG Tablet Delayed Release 1 tablet Orally Once a day , Taking Cholecalciferol 25 MCG (1000 UT) Capsule 2 capsule Orally , Taking Citalopram Hydrobromide 10 MG Tablet TAKE 1 TABLET BY MOUTH EVERY DAY FOR 30 DAYS , Taking Diclofenac Sodium 75 MG Tablet Delayed Release TAKE 1 TABLET BY MOUTH TWICE A DAY , Taking Losartan Potassium 100 MG Tablet 1 tablet Orally Once a day , Taking Metoprolol Tartrate 25 MG Tablet 1 tablet with food Orally Twice a day , Taking Nitroglycerin 0.4 MG Tablet Sublingual as directed Sublingual , Notes to Pharmacist: PRN, Taking Rosuvastatin Calcium 40 MG Tablet TAKE 1 TABLET BY MOUTH EVERYDAY AT BEDTIME , Medication List reviewed and reconciled with the patient * Allergies: L ipitor: does not remember, Bactrim: bad reaction - Allergy. Objective: * Vitals: W t:205lbs, Ht: 65 in, BP:132/80mm Hg, BMI:34.11Index, Ht-cm: 165.1 cm, Wt-k.99 kg. * Examination: G eneral Examinations: GENERAL APPEARANCE: a lert and oriented, i n no acute distress, flat affect. EYES: c onjunctiva normal, sclera non-icteric. NOSE: n ormal external appearance. LUNGS: c lear to auscultation bilaterally. CARDIO: r egular rate and rhythm, S1, S2 normal. ABDOMEN: s oft, nontender. MUSCULOSKELETAL: G ait and station normal. SKIN: w arm and dry. Assessment: * Assessment: 1. A cute depression - F32.9 (Primary) Plan: * Treatment: * Preventive Medicine: Screenings/Counseling: B ND ACTION PLAN Above Normal BMI Follow-up D ietary management education, guidance, and counseling * Follow Up: p rn,4 Weeks * * Sign off status: Completed Visit Status: C HK (Check Out) true * Provider: Shiraz Gould ([facility]), RADIOLOGY TECHNICIAN Date: 04/27/2023 Generated for Zoraida simpson/Rhonda/Emilyitting on: 0 08/15/2024 01:22 PM EDT History and Physical Notes * HPI (History of Present Illness) Category Sub-Category Detail Notes Category Not es General copper top worse when goes home has noticed little better mood with med depression lives self, does go out , pool tonight couple kids and friends supportive Examination Category Sub-Category Detail Notes Category Not es General Examinations GENERAL APPEARANCE: alert a nd oriented, in no acute distress, flat affect EYES: conjunctiva normal, sclera non-icteric EARS: NOSE: normal external appe arance THROAT: CARDIO: regular rate and rhy thm, S1, S2 normal LUNGS: clear to auscultatio n bilaterally ABDOMEN: soft, nontender SKIN: warm and dry BACK: MUSCULOSKELETAL: Gait and station nor mal LYMPH NODES:
--- OUTSIDE RECORDS SUMMARY | 2024-03-25 04:27 | XMS_ITS ---
Author Organization [facility] in [place] Address [address] [place] [address] Care Team Providers Care Horticultural Farmer Name Role Phone Kristy Gould Primary Care Provider REASON FOR VISIT Update Encounters Encounter Location Date Provider Diagnosis [facility] [address] [place] [address] 03/25/2024 Kristy Gould Plan Of Treatment No Information Progress Notes * Anaya CHURCH ADOB: [birth year] (78 yo F)Acc No.[id number]:03/25/2024 Patient: Anaya JONES :1945 A ge:78 Y S ex:Female Address:[address] [facility] [address], [address], [place] [address] * true * Date: Generated for Zoraida simpson/Rhonda/eTransmitting on: 0 08/15/2024 01:22 PM EDT
--- NOTE | 2024-08-15 13:22 | MM_ITS ---
Patient Name: DELFINA GONZALEZ MR#: [id number] : 1945 Exam Date: 08/15/2024 Ordering Doctor: SUZE JOHNSON CNP RADIOLOGY REPORT PROCEDURE: MM TOMOSYNTHESIS SCREENING BI COMPARISON: MG MAMM SCREEN 3D LUCERO CAD, 09/23/2020. MG MAMM SCREEN LUCERO W CAD, 08/21/2019. MG MAMM SCREEN LUCERO W CAD, 08/08/2018. MG MAMM SCREEN LUCERO W CAD, 07/27/2016. INDICATIONS: Screening Calculator Name NCI Breast Cancer Risk Assessment Tool 5 Year Breast Cancer Risk 1.70% Lifetime Breast Cancer Risk 3.30% Personal Breast Cancer No Personal Ovarian Cancer No Treatments None Family Cancers None LOCATION: [facility] BREAST COMPOSITION: There are scattered areas of fibroglandular density. FINDINGS: RIGHT BREAST: No significant suspicious finding. LEFT BREAST: No significant suspicious finding. DIAGNOSTIC CATEGORY 1--NEGATIVE. RECOMMENDATIONS: ROUTINE MAMMOGRAM AND CLINICAL EVALUATION IN 12 MONTHS. PLEASE NOTE: A NORMAL MAMMOGRAM DOES NOT EXCLUDE THE POSSIBILITY OF BREAST CANCER. A CLINICALLY SUSPICIOUS PALPABLE LUMP SHOULD BE BIOPSIED. Dictated by: Niko Dickson DO on 08/18/2024 at 07:59 Approved by: Niko Dickson DO on 08/18/2024 at 08:00
--- OUTSIDE RECORDS SUMMARY | 2024-08-15 13:23 | XMS_ITS | Clinical Summary ---
Author Organization [facility] Address [address] [place] [address] Care Team Providers Care Stallion Manager Name Role Phone Unallocated, [facility] Provider MD Primary Care Provi homar Allergies No known active allergies Medications citalopram (CeleXA) 10 MG tablet TAKE 1 TABLET BY MOUTH EVERY DAY FOR 30 DAYS 01/17/2024 Active diclofenac (Voltaren) 75 MG EC tablet Take 75 mg by mouth in the morning and 75 mg in the evening. Active losartan (Cozaar) 100 MG tablet TAKE 1 TABLET BY MOUTH EVERY DAY FOR 90 DAYS Active metoprolol tartrate (Lopressor) 25 MG tablet TAKE 1 TABLET BY MOUTH TWICE A DAY WITH FOOD FOR 90 DAYS 11/11/2023 Active rosuvastatin (Crestor) 40 MG tablet Take 40 mg by mouth at bedtime Active Active Problems Problem Noted Date Diagnosed Date Hyperlipidemia 05/31/2023 Family History Relation Name Status Comments Father Mother Alive Sister Social History Tobacco Use Types Packs/Day Years Used Date Smoking Tobacco: Never Smokeless Tobacco: Never Tobacco Cessation:Counseling Given: Yes Alcohol Use Standard Drinks/Week Comments Yes 0 (1 standard drink = 0.6 oz pur e alcohol) Comments Unknown Sex and Gender Information Value Date Recorded Sex Assigned at Not on file Legal Sex Female 7:20 PM EDT Gender Identity Not on file Sexual Orientation Not on file Last Filed Vital Signs Vital Sign Reading Time Taken Comments Blood Pressure 132/74 01/24/2024 1:45 PM EST Pulse 70 01/24/2024 1:45 PM EST Temperature - - Respiratory Rate - - Oxygen Saturation - - Inhaled Oxygen Concentration - - Weight 90.7 kg (200 lb) 01/24/2024 1:45 PM EST Height 165.1 cm (5' 5 ) 01/24/2024 1:45 PM EST Body Mass Index 33.28 01/24/2024 1:45 PM EST Plan of Treatment Health Maintenance Due Date Last Done Comments Medicare Annual Wellness (AWV) 1945 Influenza Vaccine (Season Ended) 2024 12/10/19 14 Pneumococcal Vaccine: 65+ Years Completed 2, 12/09/2013 Insurance [employer] Care Teams Stallion Manager Relationship Specialty Start Date End Date Unallocated, [facility] Provider, [address] [place] [address] PCP - General Family Medicine 01/23/24
--- OUTSIDE RECORDS SUMMARY | 2024-08-15 13:23 | XMS_ITS | Encounter Summary ---
Author Organization [facility] Address [address] [place] [address] Care Team Providers Care Gis Consultant Name Role Phone Unallocated, [facility] Provider Primary Care Provi homar Encounter Details Date Type Department Care Team ([facility] st Contact Info) Description 01/24/2024 Abstract [facility] [address] [place] [address] DolLeno manzanares R, DPM FACFAS [address] [facility] [place] [address] Social History Tobacco Use Types Packs/Day Years Used Date Smoking Tobacco: Never Smokeless Tobacco: Never Alcohol Use Standard Drinks/Week Comments Yes 0 (1 standard drink = 0.6 oz pur e alcohol) Comments Unknown Sex and Gender Information Value Date Recorded Sex Assigned at Not on file Legal Sex Female 7:20 PM EDT Gender Identity Not on file Sexual Orientation Not on file documented as of this encounter Plan of Treatment Not on file documented as of this encounter Visit Diagnoses Not on filedocumented in this encounter Care Teams Gis Consultant Relationship Specialty Start Date End Date Unallocated, [facility] Provider, [address] [place], [place] [id number] PCP - General Family Medicine 01/23/24 documented as of this encounter
--- OUTSIDE RECORDS SUMMARY | 2024-08-15 13:23 | XMS_ITS | Encounter Summary ---
Author Organization [facility] Address [address] [place] [address] Phone Care Team Providers Care General Passenger Agent Name Role Phone Mateus Meeks MD Primary Care Provider [phone] Encounter Details Date Type Department Care Team (Late st Contact Info) Description 09/21/2023 Scanned Document [facility] [address] [place] [id number] Scanning, Generic Provider Social History Tobacco Use Types Packs/Day Years Used Date Smoking Tobacco: Never Smokeless Tobacco: Never Alcohol Use Standard Drinks/Week Comments Yes 0 (1 standard drink = 0.6 oz pur e alcohol) Comments Unknown Sex and Gender Information Value Date Recorded Sex Assigned at Female 09/24/2023 4:47 PM EDT Legal Sex Female 6:31 PM EST Gender Identity Not on file Sexual Orientation Straight 09/24/2023 4: 47 PM EDT COVID-19 Exposure Response Date Recorded In the last 10 days, have yo u been in contact with someone who was confirmed or suspected to have Coronavirus/COVID-19? No / Unsure 09/20/2023 11:16 AM EDT documented as of this encounter Plan of Treatment Not on file documented as of this encounter Visit Diagnoses Not on filedocumented in this encounter Additional Health Concerns Assessment Noted Time A fall risk assessment has been complete d for the patient 09/20/2023 11:50 AM EDT documented as of this encounter Care Teams General Passenger Agent Relationship Specialty Start Date End Date Mateus Meeks MD [address] [facility] [place] [address] PCP - General 12/08/21 documented as of this encounter
--- OUTSIDE RECORDS SUMMARY | 2024-08-15 13:23 | XMS_ITS | Clinical Summary ---
Author Organization [facility] Address [address] [place] [id number] Care Team Providers Care Therapy Manager Name Role Phone Jorge Enriquez DO Primary Care Provider Addi Espinal Unavailable Allergies No known active allergies Medications rosuvastatin (CRESTOR) 5 mg tablet Take 5 mg by mouth once daily. Active losartan (COZAAR) 25 mg tablet Take 25 mg by mouth once daily. Active traMADol 100 mg MP25 Take by mouth once daily. Active traMADol 50 mg TbDL Take by mouth as needed. Active acetaminophen 650 mg CR tablet Take 650 mg by mouth every 8 hours as needed. 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 Not on file Not on file Not o n file Last Filed Vital Signs Vital Sign Reading Time Taken Comments Blood Pressure 164/67 06/03/2015 2:17 PM EDT Pulse 74 06/03/2015 2:17 PM EDT Temperature - - Respiratory Rate 20 06/03/2015 2:17 PM EDT Oxygen Saturation - - Inhaled Oxygen Concentration - - Weight 72.6 kg (160 lb) 06/03/2015 2:17 PM EDT self report ht/wt Height 165.1 cm (5' 5 ) 06/03/2015 2:1 7 PM EDT Body Mass Index 26.63 06/03/2015 2:17 PM EDT Plan of Treatment Health Maintenance Due Date Last Done Comments Anxiety Screening 1965 Depression Screening 1965 Hepatitis C Screening 1965 DTaP,Tdap,Td Vaccine (1 - Tdap) 1966 Diabetes Screening 1992 Pneumococcal Vaccine: 50+ (1 of 1 - PCV) 1997 Shingrix Vaccine (1 of 2) 1997 Bone Density Screening 2012 RSV Vaccine (1 - 1-dose 75+ series) 2022 Covid-19 Vaccine (1 - season) 2023 Advance Directive Discussion 03/12/2024 Influenza Vaccine (Season Ended) 2024 Insurance MEDICARE [facility] Care Teams Therapy Manager Relationship Specialty Start Date End Date Jorge Enriquez DO PCP - General Family Medicine 05/20/15 Addi Espinal Referring Pain Management 05/20/15
--- OUTSIDE RECORDS SUMMARY | 2024-08-15 13:23 | XMS_ITS | Encounter Summary ---
Author Organization [facility] Address [address] [place] [address] Phone Care Team Providers Care Perch Machine Inspector Name Role Phone Mateus Meeks MD Primary Care Provider [phone] Encounter Details Date Type Department Care Team (Late st Contact Info) Description 09/19/2019 Orders Only [facility] [address] [place] [address] Conversion, Onbase Social History Tobacco Use Types Packs/Day Years Used Date Smoking Tobacco: Never Assessed Comments Unknown Sex and Gender Information Value Date Recorded Sex Assigned at Female 09/24/2023 4:47 PM EDT Legal Sex Female 6:31 PM EST Gender Identity Not on file Sexual Orientation Straight 09/24/2023 4: 47 PM EDT documented as of this encounter Plan of Treatment Scheduled Orders Name Type Priority Associated Diagnoses Orde r Schedule OUTSIDE LAB SCAN Lab Ordered: 09/19/2019 documented as of this encounter Visit Diagnoses Not on filedocumented in this encounter Care Teams Perch Machine Inspector Relationship Specialty Start Date End Date Mateus Meeks MD [address] [place] [address] PCP - General 12/08/21 documented as of this encounter
--- OUTSIDE RECORDS SUMMARY | 2024-08-15 13:23 | XMS_ITS | Patient Health Record ---
Author Organization [facility] in [place] Address [address] [place] [address] Care Team Providers Care Filler Operator Name Role Phone Kristy Gould Primary Care Provider [phone] KRISTY GOULD Unavailable [phone] Allergies Allergen (clinical drug ingredient) Drug/Non Drug Allergy documented on EMR Reaction Allergy Type Onset Date Status sulfamethoxazole / trimethoprim Bactrim bad reaction Drug Allergy Active atorvastatin Lipitor does not remember Drug Allergy Active Results Component Value Reference Range Notes NM jina perf SPECT rest str Reviewed date:09/04/2023 03:51:02 PM Interpretation: Performing Lab: Notes/Report: Source Facility: [place] [address] Nuclear Medicine Report Signed Patient: DELFINA CHURCH MR#: [id number] : 1945 Acct:[id number] Age/Sex: 78 / F ADM Date: 09/04/23 Loc: NM Attending Dr: KRISTY GOULD Ordering Physician: KRISTY GOULD Date of Service: 09/04/23 Procedure(s): NM jina perf SPECT rest str Accession Number(s): [id number] cc: KRISTY GOULD Patient Name: DELFINA CHURCH MR#: [id number] : 1945 Exam Date: 09/04/2023 Ordering Doctor: KRISTY GOULD [facility] RADIOLOGY REPORT PROCEDURE: NM JINA PERF SPECT REST STR COMPARISON: None. INDICATIONS: CHEST PAIN, DYSPNEA TECHNIQUE: Exam Description: Stress/Rest one day protocol gated SPECT Rest Imagin.6 mCi Tc-99m Cardiolite IV on 09/04/2023 Stress Imaging 30.4 mCi Tc-99m Cardiolite IV on 09/04/2023 Exercise Protocol: 0.4 mg Lexiscan given IV Heart Rate (bpm): Rest: 52 Max: 85 PMHR: 59 Blood Pressure: Rest: 184/104 Max: 184/104 Symptoms: chest tightness, shortness of breath Rest and peak stress ECG findings were abnormal and the exercise portion of the study was Non-diagnostic per attending physician Dr. Anne . For more details please see separate cardiac stress test report. FINDINGS: QUALITY OF STUDY: PERFUSION DEFECT: LOCATION: Mid-anteroseptal. Apical anterior. SIZE: Small (1-2 segments). SEVERITY: Mild. TYPE: Persistent. WALL MOTION: Normal. LV SIZE: Normal. 97 mL. TID / TCD: None; 1.0 LVEF: Normal. Calculated EF 65%. SUMMARY: Myocardial perfusion imaging study has ABNORMAL findings. CONCLUSION: 1. Small area of mildly decreased uptake identified on stress images in the anterior wall stable on rest images possibly breast attenuation 2. No reversible ischemia 3. Abnormal exercise test secondary to EKG changes Dictated by: Bello Germain MD on 09/04/2023 at 14:44 Approved by: Bello Germain MD on 09/04/2023 at 14:46 Dictated By: Bello Germain M.D. Signed By: 09/04/23 1447 DD/ 1446 TD/TT: Foreign Language Teacher: [place] [address] Nuclear Medicine Report Signed Patient: DELFINA CHURCH MR#: [id number] : 1945 Acct:[id number] Age/Sex: 78 / F ADM Date: 09/04/23 Loc: SARAH Attending Dr: KRISTY GOULD Ordering Physician: KRISTY GOULD Date of Service: 09/04/23 Procedure(s): NM jina perf SPECT rest str Accession Number(s): [id number] cc: KRISTY GOULD Patient Name: DELFINA CHURCH MR#: [id number] : 1945 Exam Date: 09/04/2023 Ordering Doctor: KRISTY GOULD DIRECTOR OF [employer]ETING RADIOLOGY REPORT PROCEDURE: NM JINA PERF SPECT REST STR COMPARISON: None. INDICATIONS: CHEST PAIN, DYSPNEA TECHNIQUE: Exam Description: Stress/Rest one day protocol gated SPECT Rest Imagin.6 mCi Tc-99m Cardiolite IV on 09/04/2023 Stress Imaging 30.4 mCi Tc-99m Cardiolite IV on 09/04/2023 Exercise Protocol: 0.4 mg Lexiscan given IV Heart Rate (bpm): Rest: 52 Max: 85 PMHR: 59 Blood Pressure: Rest : 184/104 Max: 184/104 Symptoms: chest tightness, shortness of breath Rest and peak stress ECG findings were abnormal and the exercise portion of the study was Non-diagnostic per attending physician Dr. Anne . For more details please see separate cardiac stress test report. FINDINGS: QUALITY OF STUDY: PERFUSION DEFECT: LOCATION: Mid-anteroseptal. Apical anterior. SIZE: Small (1-2 segments). SEVERITY: Mild. TYPE: Persistent. WALL MOTION: Normal. LV SIZE: Normal. 97 mL. TID / TCD: None; 1.0 LVEF: Normal. Calculated EF 65%. SUMMARY: Myocardial perfusion imaging study has ABNORMAL findings. CONCLUSION: 1. Small area of mildly decreased uptake identified on stress images in the anterior wall stable on rest images possibly breast attenuation 2. No reversible ischemia 3. Abnormal exercise test secondary to EKG changes Dictated by: Bello Germain MD on 09/04/2023 at 14:44 Approved by: Bello Germain MD on 09/04/2023 at 14:46 Dictated By: Bello Germain M.D. Signed By: 09/04/23 1447 DD/ 1446 TD/TT: Foreign Language Teacher: Triiodothyronine (T3) Reviewed date:10/11/2023 01:55:09 PM Interpretation: Performing Lab: Notes/Report: [facility] , Triiodothyronine (T3) 120 71-180 ng/dL [place] Worker: Reza Castro PhD, Phone: [phone] Performed at: [address] [id number] Performing Lab: see note - [facility] LB TSH Reviewed date:10/11/2023 01:55:09 PM Interpretation: Performing Lab: Notes/Report: [facility] , Thyroid Stimulating Hormone 1.960 0.358-3.740 uIU/mL Performing Lab: see note ML - [facility] LB FREE T4 Reviewed date:10/11/2023 01:55:09 PM Interpretation: Performing Lab: Notes/Report: [facility] , Free T4 0.85 0.76-1.46 ng/dL Performing Lab: see note ML - [facility] LB Reason For Referral Diagnosis 1 Screening for colon cancer (Z12.11) Referral Organization [facility] Referring Provider First Name Kristy Referring Provider Last Name Luis Fernando Referring Provider Speciality Family Med mahi Referred Provider Brijesh Maurer Referred Provider Specialty General Surg yung Referral Priority Routine Medications Medication SIG (Take, Route, Frequency, Duration) Notes Start Date End Date Status Losartan Potassium 100 MG TAKE 1 TABLET BY MOUTH EVERY DAY FOR 90 DAYS for 90 Active Nitroglycerin 0.4 MG as directed Sublingual PRN Active Cholecalciferol 25 MCG (1000 UT) 2 capsule Orally Active Aspirin 81 81 MG 1 tablet Orally Once a day Active Rosuvastatin Calcium 40 MG TAKE 1 TABLET BY MOUTH EVERYDAY AT BEDTIME for 90 days Active Diclofenac Sodium 75 MG TAKE 1 TABLET BY MOUTH TWICE A DAY for 30 days Active Citalopram Hydrobromide 10 MG TAKE 1 TAB LET BY MOUTH EVERY DAY FOR 30 DAYS for 90 days Active Metoprolol Tartrate 25 MG TAKE 1 TABLET BY MOUTH TWICE A DAY WITH FOOD FOR 90 DAYS for 90 Active Immunizations Vaccine Route Administration Date Status Comme nts Pneumococcal (Prevnar 13) Unknown 12/14/2021 Administer ed SARS-COV-2 (COVID 19 Katerin 0.5mL) Alvin and Alvin Unknown 06/21/2020 Administered Social History Tobacco Use: Social History Observation Description Date Details (start date - stop date) Never Smoker NA - NA Alcohol Screen (Audit-C) Question Answer Notes Did you have a drink contain ing alcohol in the past year? Yes How often did you have 6 or more drinks on one occasion in the past year? Monthly or less (1 point) How many drinks did you have on a typical day when you were drinking in the past year? 1 or 2 drinks (0 point) How often did you have a dri nk containing alcohol in the past year? Less than monthly (1 point) Points 2 Interpretation Negative Tobacco Control (Standard) Question Answer Notes Tobacco [...] month (2 points) Points 2 Interpretation Negative Problems Problem Type SNOMED Code ICD Code Onset Dates Problem Status W/U Status Risk Notes Problem 03282445 Constipation, unspecified (K59.00) Active confirmed Problem Shortness of breath (215947766) Shortness of breath (R06.02) Active confirmed Problem Onychomycosis caused by dermatophyte (030238944) Onychomycosis of toenail (B35.1) Active confirmed Problem Hyperlipidemia (08632002) Hyperlipidemia (E78.5) Active confirmed Problem Hypertension (02632471) Hypertension (I10) Active confirmed Problem Neck pain (41559234) Neck pain (M54.2) Active c onfirmed Problem Electrocardiogram abnormal (467822519) Abnormal EKG (R94.31) Active confirmed Problem Hyperglycemia (10424490) Hyperglycemia (R73.9) Active confirmed Problem History of cholecystectomy (235919472) History of cholecystectomy (Z90.49) Active confirmed Problem Pain of right lower leg (119584639480328) Pain of right lower leg (M79.661) Active confirmed Problem Vitamin D deficiency (20762247) Vitamin D deficiency (E55.9) Active confirmed Problem Pain of right knee region (finding) (993345409675089) Knee pain, right (M25.561) Active confirmed Problem Osteoporosis (93134335) Osteoporosis (M81.0) Active confirmed Problem Nephrolithiasis (18628860) Nephrolithiasis (N20.0) Active confirmed Problem Acute bronchitis (34567444) Acute bronchitis (J20.9) Active confirmed Problem Degeneration of cervical intervertebral disc (38136904) Degeneration, intervertebral disc, cervical (M50.30) Active confirmed Problem Fever (307177235) Fever (R50.9) Active confirme d Problem Urinary tract infection (09585876) Urinary tract infection (N39.0) Active confirmed Problem Poison elyssa (553533112) Poison elyssa (L23.7) Active confirmed Problem Cataract (569671624) Cataract (H26.9) Active co nfirmed Problem Overweight (384793386) Over weight (E66.3) Active confirmed Problem Internal derangement of right knee (40403707211686907) Internal derangement of right knee (M23.91) Active confirmed Problem Nevus (1561287156) Nevus (D22.9) Active confirm ed Problem History of placement of stent for coronary artery disease (situation) (164172390) S/P coronary artery stent placement (Z95.5) Active confirmed Problem Acute depression (848749316) Acute depression (F32.9) Active confirmed Problem Generalized aches and pains (41714401) Body aches (R52) Active confirmed Problem Adult health examination (695311389) Encounter for preventative adult health care examination (Z00.00) Active confirmed Problem Viral infection (11661707) Unspecified viral infection, in conditions classified elsewhere and of unspecified site (B97.89) Active confirmed Problem Prediabetes (053095043) Prediabetes (R73.03) Active confirmed Problem Cyst of right ovary (45059434772405131) Ovarian cyst, right (N83.201) Active confirmed Problem Closed fracture of cervical vertebra without spinal cord injury, unspecified cervical vertebral level, initial encounter (S12.9XXA) Active confirmed Vital Signs Blood pressure diastolic 80 mm Hg 02/25/2024 Height 65 in 02/25/2024 Blood pressure systolic 132 mm Hg 02/25/2024 Weight 205 lbs 02/25/2024 BMI 34.11 kg/m2 02/25/2024 Encounters Encounter Location Date Provider Diagnosis [facility] [address] [place] [address] 01/16/2024 Kristy Gould Screening for colon cancer Z12.11 and Screening for osteoporosis Z13.820 [facility] [address] [place] [address] 03/25/2024 Kristy Gould [facility] [address] [place] [address] 08/20/2023 KRISTY GOULD [facility] [address] [place] [address] 08/24/2023 KRISTY GOULD Abnormal EKG R94.31 ; Shortness of breath R06.02 and Hypertension I10 [facility] [address] [facility] [place] [address] 09/04/2023 KRISTY GOULD [facility] [address] [facility] [place] [address] 10/19/2023 Kristy Gould [facility] [address] [place] [address] 01/16/2024 Kristy Gould Encounter for Medica annual wellness exam Z00.00 [facility] [address] [facility] [place] [address] 02/25/2024 Kristy Gould Acute depression F32 .9 Assessments Encounter Date Diagnosis (ICD Code) Assessment Notes Treatment Notes Treatment Clinical Notes Section Notes 01/16/2024 Encounter for Medicare annual wellness exam (ICD-10 - Z00.00) Patient presents to office for a subsequent medicare wellness appointment. Patient denies any home safety concerns but does state she struggles with depression and would like to try medication. Slums test completed with patient and she had a perfect score. Vision test completed and patient scored 20/20. patient is due for a bone density dexa study and has never had a colonoscopy but is requesting one unsure of family history due to being adopted. Patient was offered a flu vaccine but declined it. A total of 25 minutes was spent with the patient 02/25/2024 Acute depression (ICD-10 - F32.9) continue celexa fu one month discussed exercise, getting enough sleep discussed counseling denies SI 08/24/2023 Abnormal EKG (ICD-10 - R94.31) 08/24/2023 Shortness of breath (ICD-10 - R06.02) 01/16/2024 Screening for colon cancer (ICD-10 - Z12.11) 01/16/2024 Screening for osteoporosis (ICD-10 - Z13.820) 08/24/2023 Hypertension (ICD-10 - I10) Plan Of Treatment Pending Test Test Name Order Date Lexiscan Stress Nuclear Test 08/24/2023 CMP (COMPLETE METABOLIC PANEL) 4 CMP (COMPLETE METABOLIC PANEL) 3 CMP (COMPLETE METABOLIC PANEL) 4 HEMOGLOBIN A1C (GLYCO) 07/26/2023 IRON, TOTAL 07/26/2023 LIPID PANEL (CHOL/TRIG/HDL/LDL) 07/26/19 24 CBC WITH DIFF 07/26/2023 VITAMIN D, 25 LEVEL (TOTAL) 07/26/2023 XR Abdomen AP (1 view) (KUB) * 3 FREE T3 08/10/2023 Insulin Level 07/26/2023 Cardiolyte Stress Test 07/26/2023 THYROID PANEL (T4/TSH/FREE T3) 4 DEXA BONE DENSITY 01/16/2024 Insurance Providers Payer Name Payer Address Payer Phone Subscriber Number Group Number Insured Name Patient Relationship to Insured Coverage Start Date Coverage End Date [employer] [address] [place] [address] [id number] Delfina Church Self - patient is the insured Medical (General) History Medical History History ICD Code Pain of right lower leg M79.661 Knee pain, right M25.561 Over weight E66.3 Nephrolithiasis N20.0 Hyperglycemia R73.9 Urinary tract infection N39.0 Unspecified viral infection, in conditions classified elsewhere and of unspecified site B97.89 Body aches R52 Fever R50.9 Shortness of breath R06.02 Onychomycosis of toenail B35.1 Nevus D22.9 Degeneration, intervertebral disc, cervi michell M50.30 Poison elyssa L23.7 Acute bronchitis J20.9 Acute depression F32.9 Hypertension I10 Vitamin D deficiency E55.9 Osteoporosis M81.0 Hyperlipidemia E78.5 Encounter for preventative adult health care examination Z00.00 Internal derangement of right knee M23.9 1 Abnormal EKG R94.31 Closed fracture of cervical vertebra without spinal cord injury, unspecified cervical vertebral level, initial encounter S12.9XXA Neck pain M54.2 Ovarian cyst, right N83.201 History of cholecystectomy Z90.49 S/P coronary artery stent placement Z95. 5 Cataract H26.9 Surgical History Surgery Date(Month/Year) Gall Bladder Ovarian Cyst Knee Surgery- Right
--- OUTSIDE RECORDS SUMMARY | 2024-08-15 13:23 | XMS_ITS | Encounter Summary ---
Author Organization [facility] Address [address] [place] [address] Phone Care Team Providers Care Personnel Clerk Name Role Phone Mateus Meeks MD Primary Care Provider [phone] Encounter Details Date Type Department Care Team (Late st Contact Info) Description 09/23/2019 Orders Only [facility] [address] [place] [address] Conversion, Onbase Social History Tobacco Use Types [...] r Schedule OUTSIDE LAB SCAN Lab Ordered: 09/23/2019 documented as of this encounter Visit Diagnoses Not on filedocumented in this encounter Care Teams Personnel Clerk Relationship Specialty Start Date End Date Mateus Meeks MD [address] [place] [address] PCP - General 12/08/21 documented as of this encounter
--- OUTSIDE RECORDS SUMMARY | 2024-08-15 13:23 | XMS_ITS | Clinical Summary ---
Author Organization [facility] Address [address] [place] [address] Phone Care Team Providers Care Container Coordinator Name Role Phone Mateus Meeks MD Primary Care Provider [phone] Allergies No known active allergies Medications aspirin 81 mg EC tablet Take 1 tablet (81 mg) by mouth once daily. Active cholecalciferol (Vitamin D-3) 125 MCG (5000 UT) capsule Take 1 capsule (125 mcg) by mouth once daily. Active losartan (Cozaar) 100 mg tablet Take 1 tablet (100 mg) by mouth once daily. 09/28/2020 Active metoprolol tartrate (Lopressor) 25 mg tablet Take 1 tablet (25 mg) by mouth 2 times a day. 01/06/2021 Active rosuvastatin (Crestor) 40 mg tablet Take 1 tablet (40 mg) by mouth once daily at bedtime. 12/01/2020 Active diclofenac (Voltaren) 75 mg EC tablet Take 1 tablet (75 mg) by mouth 2 times a day. Do not crush, chew, or split. Active nitroglycerin (Nitro-Dur) 0.4 mg/hr patchIndication s:Angina, class III Place 1 patch over 12 hours on the skin once daily. 90 patch 3 09/20/2023 Active nitroglycerin (Nitrostat) 0.4 mg SL tabletIndicatio ns:Angina, class III Place 1 tablet (0.4 mg) under the tongue every 5 minutes if needed for chest pain. May repeat dose every 5 minutes for up to 3 doses total. 100 tablet 11 09/20/2023 Active acetaminophen (Tylenol Extra Strength) 500 mg tablet Take 1 tablet (500 mg) by mouth every 6 hours if needed for mild pain (1 - 3). Active vit A/vit C/vit E/zinc/copper (PRESERVISION AREDS ORAL) Take 1 tablet by mouth early in the morning.. Active Active Problems Problem Noted Date Diagnosed Date Other chest pain 12/25/2023 Shortness of breath 09/20/2023 BMI 34.0-34.9,adult 09/20/2023 Never smoked tobacco 09/20/2023 BRICENO (dyspnea on exertion) 09/20/2023 Angina, class III 09/20/2023 ASHD (arteriosclerotic heart disease) 05/31/2023 Essential hypertension 05/31/2023 History of myocardial infarction 05/31/2023 History of PTCA 05/31/2023 Hyperlipidemia 05/31/2023 Immunizations Immunization Administration Dates Next Due Covid-19 Non-us Vaccine, Product Unknown 022 Influenza Whole 12/09/2013 Pneumococcal conjugate vaccine, 13-valent (PREVN AR 13) 12/14/2021 Pneumococcal polysaccharide vaccine, 23-valent, age 2 years and older (PNEUMOVAX 23) 12/09/2013 Social History Tobacco Use Types Packs/Day Years Used Date Smoking Tobacco: Never Smokeless Tobacco: Never Tobacco Cessation:Counseling Given: Not Answered Alcohol Use Standard Drinks/Week Comments Yes 0 (1 standard drink = 0.6 oz pur e alcohol) occasional Comments Unknown Sex and Gender Information Value Date Recorded Sex Assigned at Female 09/24/2023 4:47 PM EDT Legal Sex Female 6:31 PM EST Gender Identity Not on file Sexual Orientation Straight 09/24/2023 4: 47 PM EDT Last Filed Vital Signs Vital Sign Reading Time Taken Comments Blood Pressure 148/88 12/25/2023 2:19 PM EDT Pulse 60 12/25/2023 2:19 PM EDT Temperature - - Respiratory Rate - - Oxygen Saturation - - Inhaled Oxygen Concentration - - Weight 94.9 kg (209 lb 3.2 oz) 12/25/2023 2:19 P M EDT Height 165.1 cm (5' 5 ) 12/25/2023 2:19 PM EDT Body Mass Index 34.81 12/25/2023 2:19 PM EDT Plan of Treatment Health Maintenance Due Date Last Done Comments Bone Density Scan 1945 Lipid Panel 1945 Medicare Annual Wellness Vis it (AWV) 1945 Diabetes Screening 1965 Hepatitis C Screening 1965 DTaP/Tdap/Td Vaccines (1 - Tdap) 1969 Zoster Vaccines (1 of 2) 1997 RSV High Risk: (Elderly (60+ ) or Population) (1 - 1-dose 75+ series) 2022 COVID-19 Vaccine (2 - 2023-2 5 season) 2023 06/21/2020 Influenza Vaccine (Season Ended) 2024 12/09/2013 Pneumococcal Vaccine Completed 12/14/2021, 12/09/2013 HIB Vaccines Aged Out No longer eligi ble based on patient's age to complete this topic HPV Vaccines Aged Out No longer eligi ble based on patient's age to complete this topic Hepatitis A Vaccines Aged Out No long er eligible based on patient's age to complete this topic Hepatitis B Vaccines Aged Out No long er eligible based on patient's age to complete this topic IPV Vaccines Aged Out No longer eligi ble based on patient's age to complete this topic Meningococcal Vaccine Aged Out No venus gomez eligible based on patient's age to complete this topic Rotavirus Vaccines Aged Out No longer eligible based on patient's age to complete [place] [address] [facility] Care Teams Container Coordinator Relationship Specialty Start Date End Date Mateus Meeks MD [address] [place] [address] PCP - General 12/08/21
== END 2024-08-15 13:21 | disposition home or self-care (01) ==
LOC: MAMMO 13:20
PROVIDERS: PCP Nurse Practitioner Family; Visit Provider Nurse Practitioner Family
DX: Z12.31 Encounter for screening mammogram for malignant neoplasm of breast (principal)
CPT/HCPCS: 77063; 77067

== ENCOUNTER 2024-08-28 14:00 | Outpatient (OUT) | payer OTHER, SELFPAY ==
--- OUTSIDE RECORDS SUMMARY | 2024-08-18 09:47 | XMS_ITS ---
Author Organization [facility] in [place] Address [address] [place] [address] Care Team Providers Care Supervisor Sawmill Name Role Phone Kristy Gould Primary Care Provider [phone] REASON FOR VISIT mammogram results Encounters Encounter Location Date Provider Diagnosis [facility] [address] [place] [address] 08/18/2024 Kristy Gould Plan Of Treatment No Information Progress Notes * Anaya CHURCH ADOB: [birth year] (79 yo F)Acc No.[id number]:08/18/2024 Patient: Anaya JONES :1945 A ge:79 Y S ex:Female Address:[address] [facility] [address], [address] [address] * true * Date: Generated for Alleni calvin/Rhonda/eTransmitting on: 0 08/28/2024 02:03 PM EDT
--- OUTSIDE RECORDS SUMMARY | 2024-08-21 09:30 | XMS_ITS ---
Author Organization The [facility] in [place] Address [address] [place] [address] Care Team Providers Care Senior Dot Net Developer Name Role Phone Kristy Gould Primary Care Provider Allergies Allergen (clinical drug ingredient) Drug/Non Drug Allergy documented on EMR Reaction Allergy Type Onset Date Status sulfamethoxazole / trimethoprim Bactrim bad reaction Drug Allergy Active atorvastatin Lipitor does not remember Drug Allergy Active REASON FOR VISIT Presents to office for c/o bilat knee pain chronic in nature., Also c/o pain in left armpit and upper outer quad of left breast. Has been ongoing for several months. Worse past 2-3 weeks Medications Medication SIG (Take, Route, Frequency, Duration) Notes Start Date End Date Status Aspirin 81 81 MG 1 tablet Orally Once a day Active Azelastine HCl 0.05 % 1 drop into affect ed eye Ophthalmic Twice a day prn 08/21/2024 Active Citalopram Hydrobromide 10 MG TAKE 1 TAB LET BY MOUTH EVERY DAY FOR 30 DAYS for 90 days Active Meloxicam 7.5 MG 1 tablet Orally Once a day prn for 30 days 08/22/2024 Active Cholecalciferol 25 MCG (1000 UT) 2 capsule Orally Active Rosuvastatin Calcium 40 MG TAKE 1 TABLET BY MOUTH EVERYDAY AT BEDTIME for 90 days Active Metoprolol Tartrate 25 MG TAKE 1 TABLET BY MOUTH TWICE A DAY WITH FOOD FOR 90 DAYS for 90 Active Losartan Potassium 100 MG TAKE 1 TABLET BY MOUTH EVERY DAY FOR 90 DAYS for 90 Active Social History Tobacco Use: Social History [...] Problem Status W/U Status Risk Notes Problem Seasonal allergy (628185349) Seasonal allergies (J30.2) Active confirmed Vital Signs Blood pressure systolic 126 mm Hg 08/22/19 25 Blood pressure diastolic 64 mm Hg 025 Height 65 in 08/21/2024 Weight 204.8 lbs 08/21/2024 BMI 34.08 kg/m2 08/21/2024 Encounters Encounter Location Date Provider Diagnosis [facility] [address] [place] [address] 08/21/2024 Kristy Luis Fernando Knee pain M25.569 ; Left axillary pain M79.622 and Seasonal allergies J30.2 Assessments Encounter Date Diagnosis (ICD Code) Assessment Notes Treatment Notes Treatment Clinical Notes Section Notes 08/21/2024 Knee pain (ICD-10 - M25.569) meloxicam? 08/21/2024 Left axillary pain (ICD-10 - M79.622) 08/21/2024 Seasonal allergies (ICD-10 - J30.2) Plan Of Treatment Medication Medication Name Sig Start Date Stop Date Notes Azelastine HCl 0.05 % 1 drop into affect ed eye Ophthalmic Twice a day prn 08/21/2024 Meloxicam 7.5 MG 1 tablet Orally Once a day prn for 30 days 08/22/2024 Diclofenac Sodium 75 MG TAKE 1 TABLET BY MOUTH TWICE A DAY Treatment Notes Assessment Notes Knee pain meloxicam? Pending Test Test Name Order Date XR KNEE LT 3V 08/21/2024 XR KNEE RT 3V 08/21/2024 US SOFT TISSUE LIMITED AREA 08/21/2024 Next Appt Details Follow Up: prn, Reason: Progress Notes * Anaya CHURCH ADOB: [birth year] (79 yo F)Acc No.[id number]:08/21/2024 Progress Note Patient: Anaya JONES Provider: Shiraz Gould ([facility]), CONTENT CREATION MANAGER :1945 A ge:79 Y S ex:Female Date:08/21/2024 Address:[address] [place] [address], [address], [facility] Check In:01:22 PM ESTCheck O ut:01:46 PM EST Subjective: * Chief Complaints: * 1 . Presents to office for c/o bilat knee pain chronic in nature.. 2. Also c/o pain in left armpit and upper outer quad of left breast. Has been ongoing for several months. Worse past 2-3 weeks. * HPI: G eneral: chronic knee pain xrays stop dic, add meloxicam pain left armpit into breast pain worse as day goes on can just happen out of blue aching pain constant , gets stabbing pains last seconds just had mammogram, wnl saw cardiology not too long ago she states, did some testing eyes itching, burning US left armpit. * ROS: G eneral/Constitutional: Fever d enies. H eadache d enies. W eight loss?denies. O phthalmologic: Discharge d enies. E ye Pain d enies. I tching and redness d enies. E NT: Patient admits e yes itching and burning allergies bad lately. N cameron congestion d enies. N cameron discharge d enies. S ore throat d enies. C ardiovascular: Chest tightness/ [...] P ainful urination d enies. M usculoskeletal: Patient complaining of c hronic knee pain left armpit pain, discomfort. B ack pain d enies. N beto pain d enies. M uscle aches d enies. S kin: Rash d enies. S kin lesion(s) d enies. ? * Active Problem List R06.02 Shortness of breath Modified On:07/26/2022 Status:confirmed B35.1 Onychomycosis of toe nail Modified On:07/26/2022 Status:confirmed E78.5 Hyperlipidemia Modified On:07/26/2022 Status:confirmed I10 Hypertension Modified On:07/26/2022 Status:confirmed M54.2 Neck pain Modified On:07/26/2022U Status:confirmed R94.31 Abnormal EKG Modified On:07/26/2022 Status:confirmed R73.9 Hyperglycemia Modified On:07/26/2022 Status:confirmed Z90.49 History of cholecyst ectomy Modified On:07/26/2022 Status:confirmed M79.661 Pain of right lower leg Modified On:07/26/2022 Status:confirmed E55.9 Vitamin D deficiency Modified On:07/26/2022 Status:confirmed M25.561 Knee pain, right Modified On:07/26/2022U Status:confirmed M81.0 Osteoporosis Modified On:07/26/2022U Status:confirmed N20.0 Nephrolithiasis Modified On:07/26/2022U Status:confirmed J20.9 Acute bronchitis Modified On:07/26/2022U Status:confirmed M50.30 Degeneration, interv ertebral disc, cervical Modified On:07/26/2022 Status:confirmed R50.9 Fever Modified On:07/26/2022 Status:confirmed N39.0 Urinary tract infect ion Modified On:07/26/2022U Status:confirmed L23.7 Poison elyssa Modified On:07/26/2022U Status:confirmed H26.9 Cataract Modified On:07/26/2022 Status:confirmed E66.3 Over weight Modified On:07/26/2022 Status:confirmed M23.91 Internal derangement of right knee Modified On:07/26/2022 Status:confirmed D22.9 Nevus Modified On:07/26/2022 Status:confirmed Z95.5 S/P coronary artery stent placement Modified On:07/26/2022 Status:confirmed F32.9 Acute depression Modified On:07/26/2022 Status:confirmed R52 Body aches Modified On:07/26/2022 Status:confirmed Z00.[address] [facility] examination Modified On:07/26/2022 Status:confirmed B97.89 Unspecified viral in fection, in conditions classified elsewhere and of unspecified site Modified On:07/26/2022 Status:confirmed N83.201 Ovarian cyst, right Modified On:07/26/2022 Status:confirmed S12.9XXA Closed fracture of c ervical vertebra without spinal cord injury, unspecified cervical vertebral level, initial encounter Modified On:07/26/2022 Status:confirmed K59.00 Constipation, unspec ified Modified On:07/31/2022 Status:confirmed R73.03 Prediabetes Modified On:08/10/2023 Status:confirmed J30.2 Seasonal allergies Modified On:08/21/2024 Status:confirmed * Medical History: P ain of [...] , Ovarian Cyst , Knee Surgery- Right , Cardiac cath- Dr. Benavidez 2024. * Family History: F ather: unknown. M [...] , Taking Losartan Potassium 100 MG Tablet TAKE 1 TABLET BY MOUTH EVERY DAY FOR 90 DAYS , Taking Metoprolol Tartrate 25 MG Tablet TAKE 1 TABLET BY MOUTH TWICE A DAY WITH FOOD FOR 90 DAYS , Taking Rosuvastatin Calcium 40 MG Tablet TAKE 1 TABLET BY MOUTH EVERYDAY AT BEDTIME , Discontinued Nitroglycerin 0.4 MG Tablet Sublingual as directed Sublingual , Notes to Pharmacist: PRN, Medication List reviewed and reconciled with the patient * Allergies: L ipitor: does not remember, Bactrim: bad reaction - Allergy. Objective: * Vitals: W t:204.8lbs, Ht: 65 in, BP:126/64mm Hg, BMI:34.08Index, Ht-cm: 165.1 cm, Wt-k.9 kg. * Examination: G eneral Examinations: GENERAL APPEARANCE: a lert and oriented, i n no acute distress. EYES: N ormal Conjunctiva/Sclera. NOSE: n ormal external appearance. LUNGS: c lear to auscultation bilaterally. CARDIO: r egular rate and rhythm, S1, S2 normal. MUSCULOSKELETAL: d ecreased ROM due to knee pain. SKIN: w arm and dry. Assessment: * Assessment: 1. K nee pain - M25.569 (Primary) 2 . L eft axillary pain - M79.622 ? 3 . S easonal allergies - J30.2 Plan: * Treatment: 2. L eft axillary pain I maging: US SOFT TISSUE LIMITED AREA 3.?Seasonal allergies? Start Azelastine HCl Solution, 0.05 %, 1 drop into affected eye, Ophthalmic, Twice a day prn, 1, Refills 1.?? * Preventive Medicine: Screenings/Counseling: B AL ACTION PLAN Above Normal BMI Follow-up D ietary management education, guidance, and counseling See treatment section of progress note for complete details of management plan. F ALL RISK SCREENING Fall Risk Assessment: N o falls in the past year * Follow Up: p rn * * Electronically signed by Lily Gould NP, [employer].CONTENT CREATION [id number] on 08/28/2024 at 09:24 AM EDT Sign off status: Completed Visit Status: C HK (Check Out) true * Provider: Shiraz Gould ([facility]), CONTENT CREATION MANAGER Date: 08/21/2024 Generated for Zoraida simpson/Rhonda/Emilyitting on: 0 08/28/2024 02:03 PM EDT History and Physical Notes * HPI (History of Present Illness) Category Sub-Category Detail Notes Category Not es General chronic knee pain xrays stop dic, add meloxicam pain left armpit into breast pain worse as day goes on can just happen out of blue aching pain constant , gets stabbing pains last seconds just had mammogram, wnl saw cardiology not too long ago she states, did some testing eyes itching, burning US left armpit Examination Category Sub-Category Detail Notes Category Not es General Examinations GENERAL APPEARANCE: alert a nd oriented, in no acute distress EYES: Normal Conjunctiva/S clera EARS: NOSE: normal external appe arance THROAT: CARDIO: regular rate and rhy thm, S1, S2 normal LUNGS: clear to auscultatio n bilaterally ABDOMEN: SKIN: warm and dry BACK: MUSCULOSKELETAL: decreased ROM due to knee pain LYMPH NODES:
--- OUTSIDE RECORDS SUMMARY | 2024-08-21 09:56 | XMS_ITS ---
Author Organization The [facility] in [place] Address [address] [place] [address] Care Team Providers Care Shuttle Truck Driver Name Role Phone Kristy Gould Primary Care Provider [phone] REASON FOR VISIT looking for cardiology notes Encounters Encounter Location Date Provider Diagnosis [facility] [address] [place] [address] 08/21/2024 Kristy Gould Plan Of Treatment No Information Progress Notes * Anaya CHURCH ADOB: [birth year] (79 yo F)Acc No.[id number]:08/21/2024 Patient: Anaya JONES :1945 A ge:79 Y S ex:Female Address:[address] [facility] [address], [address] [address] * true * Date: Generated for Printi ng/Faceciliog/eTransmitting on: 0 08/28/2024 02:03 PM EDT
--- NOTE | 2024-08-28 14:03 | US_ITS ---
The [address] [address] Patient Name: DELFINA GONZALEZ MRN: [id number] date: 1945 Sex: F Assigned Patient Location: [place] Current Patient Location: Accession/Order Number: [id number] Exam Date: 08/28/2024 14:57 Report Date: 08/28/2024 14:58 At the request of: SUZE JOHNSON Procedure: US extremity nonvascular LT Left axillary ultrasound. Reason for exam: Axillary pain. COMPARISON: None. TECHNIQUE: Grayscale and color Doppler images of the left axilla were obtained. FINDINGS: A benign-appearing lymph node is seen involving the left axilla. No solid mass or fluid collection. US/US extremity nonvascular LT IMPRESSION: Unremarkable left axillary ultrasound. Impression dictated by: Jorje Sheridan Jr., D.O. 08/28/2024 2:58 PM Dictation Location: [place] [address] Electronically authenticated by: [id number] Y Date: 08/28/2024 14:58
--- OUTSIDE RECORDS SUMMARY | 2024-08-28 14:03 | XMS_ITS | Clinical Summary ---
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
--- OUTSIDE RECORDS SUMMARY | 2024-08-28 14:03 | XMS_ITS | Encounter Summary ---
Author Organization [facility] Address [address] [place] [address] Phone Care Team Providers Care Head Bone Grinder Name Role Phone Mateus Meeks MD Primary Care Provider [phone] Encounter Details Date Type Department Care Team (Late st Contact Info) Description 09/19/2019 Orders Only [facility] [address] [place] [address] Conversion, Onbase Social History Tobacco Use Types [...] on filedocumented in this encounter Care Teams Head Bone Grinder Relationship Specialty Start Date End Date Mateus Meeks MD [address] [place] [address] PCP - General 12/08/21 documented as of this encounter
--- OUTSIDE RECORDS SUMMARY | 2024-08-28 14:03 | XMS_ITS | Encounter Summary ---
Author Organization [facility] Address [address] [place] [address] Phone Care Team Providers Care Packing House Laborer Name Role Phone Mateus Meeks MD Primary Care Provider + [phone] Encounter Details Date Type Department Care Team (Late st Contact Info) Description 03/28/2021 Orders Only [facility] [address] [place] [address] Conversion, Onbase Social History Tobacco Use Types [...] r Schedule OUTSIDE LAB SCAN Lab Ordered: 03/28/2021 documented as of this encounter Visit Diagnoses Not on filedocumented in this encounter Care Teams Packing House Laborer Relationship Specialty Start Date End Date Mateus Meeks MD [address] [place] [address] PCP - General 12/08/21 documented as of this encounter
--- OUTSIDE RECORDS SUMMARY | 2024-08-28 14:03 | XMS_ITS | Patient Health Record ---
Author Organization The [facility] in [place] Address [address] [place] [address] Care Team Providers Care Clerk Operator Name Role Phone Kristy Gould Primary Care Provider KRISTY GOULD Unavailable [phone] Allergies Allergen (clinical drug ingredient) Drug/Non Drug Allergy documented on EMR Reaction Allergy Type Onset Date Status sulfamethoxazole / trimethoprim Bactrim bad reaction Drug Allergy Active atorvastatin Lipitor does not remember Drug Allergy Active Results Component Value Reference Range Notes FREE T4 Reviewed date:10/11/2023 01:55:09 PM Interpretation: Performing Lab: Notes/Report: [facility] T4 0.85 0.76-1.46 ng/dL Performing Lab: see note ML - The [facility] LB MM tomosynthesis screening B I Reviewed date:08/18/2024 01:48:30 PM Interpretation: Performing Lab: Notes/Report: Source Facility: [facility]-[address] [place] [address] [place] [address] Mammography Report Signed Patient: DELFINA CHURCH MR#: [id number] : 1945 Acct:[id number] Age/Sex: 79 / F ADM Date: 08/15/24 Loc: MAMMO Attending Dr: KRISTY GOULD Ordering Physician: KRISTY GOULD Results: Date of Service: 08/15/24 Follow Up: Procedure(s): MM tomosynthesis screening BI Accession Number(s): [id number] cc: KRISTY GOULD Patient Name: DELFINA CHURCH MR#: [id number] : 1945 Exam Date: 08/15/2024 Ordering Doctor: KRISTY GOULD ELECTRODE TURNER AND FINISHER RADIOLOGY REPORT PROCEDURE: MM TOMOSYNTHESIS SCREENING BI COMPARISON: MG MAMM SCREEN 3D LUCERO CAD, 09/23/2020. MG MAMM SCREEN LUCERO W CAD, 08/21/2019. MG MAMM SCREEN LUCERO W CAD, 08/08/2018. MG MAMM SCREEN LUCERO W CAD, 07/27/2016. INDICATIONS: Screening Calculator Name NCI Breast Cancer Risk Assessment Tool 5 Year Breast Cancer Risk 1.70% Lifetime Breast Cancer Risk 3.30% Personal Breast Cancer No Personal Ovarian Cancer No Treatments None Family Cancers None LOCATION: [facility] BREAST COMPOSITION: There are scattered areas of fibroglandular density. FINDINGS: RIGHT BREAST: No significant suspicious finding. LEFT BREAST: No significant suspicious finding. DIAGNOSTIC CATEGORY 1--NEGATIVE. RECOMMENDATIONS: ROUTINE MAMMOGRAM AND CLINICAL EVALUATION IN 12 MONTHS. PLEASE NOTE: A NORMAL MAMMOGRAM DOES NOT EXCLUDE THE POSSIBILITY OF BREAST CANCER. A CLINICALLY SUSPICIOUS PALPABLE LUMP SHOULD BE BIOPSIED. Dictated by: Niko Dickson DO on 08/18/2024 at 07:59 Approved by: Niko Dickson DO on 08/18/2024 at 08:00 Dictated By: Niko Dickson D.O. Signed By: 08/18/24 0801 DD/ 0800 TD/TT: Raw Stock Dyeing Machine Tender: [place] [address] Mammography Report Signed Patient: ILA CHURCH MR#: [id number] : 1945 Acct:[id number] Age/Sex: 79 / F ADM Date: 08/15/24 Loc: MAMMO Attending Dr: KRISTY GOULD Ordering Physician: KRISTY GOULD Results: Date of Service: 08/15/24 Follow Up: Procedure(s): MM tomosynthesis screening BI Accession Number(s): [id number] cc: KRISTY GOULD Patient Name: DLEFINA CHURCH MR#: [id number] : 1945 Exam Date: 08/15/2024 Ordering Doctor: DEBORA GOULD ELECTRODE TURNER AND FINISHER RADIOLOGY REPORT PROCEDURE: MM TOMOSYNTHESIS SCREENING BI COMPARISON: MG MAMM SCREEN 3D LUCERO CAD, 09/23/2020. MG MAMM SCREEN LUCERO W CAD, 08/21/2019. MG M AMM SCREEN LUCERO W CAD, 08/08/2018. MG MAMM SCREEN LUCERO W CAD, 07/27/2016. INDICATIONS: Screening Calculator Name NCI Breast Cancer Risk Assessment Tool 5 Year Breast Cancer Risk 1.70% Lifetime Breast Canc er Risk 3.30% Personal Breast Canc er No Personal Ovarian Can cer No Treatments None Family Cancers None LOCATION: [facility] BREAST COMPOSITION: There are scattered areas of fibroglandular density. FINDINGS: RIGHT BREAST: No significant suspicious finding. LEFT BREAST: No significant suspicious finding. DIAGNOSTIC CATEGORY 1--NEGATIVE. RECOMMENDATIONS: ROUTINE MAMMOGRAM AN D CLINICAL EVALUATION IN 12 MONTHS. PLEASE NOTE: A MARYAM L MAMMOGRAM DOES NOT EXCLUDE THE POSSIBILITY OF BREAST CANCER. A CLINICALLY SUSPICIOUS PALPABLE LUMP SHOULD BE BIOPSIED. Dictated by: Niko Dickson DO on 08/18/2024 at 07:59 Approved by: Niko Dickson DO on 08/18/2024 at 08:00 Dictated By: Niko Dickson D.O. Signed By: 08/18/24800 DD/ 9 TD/TT: Raw Stock Dyeing Machine Tender: Triiodothyronine (T3) Reviewed date:10/11/2023 01:55:09 PM Interpretation: Performing Lab: Notes/Report: [facility] , Triiodothyronine (T3) 120 71-180 ng/dL Disease Education Specialist: Reza Castro PhD, Phone: [phone] Performed at: - [facility] [address] [id number] Performing Lab: see note LC - [facility] LB TSH Reviewed date:10/11/2023 01:55:09 PM Interpretation: Performing Lab: Notes/Report: [facility] , Thyroid Stimulating Hormone 1.960 0.358-3.740 uIU/mL Performing Lab: see note ML - [facility] LB NM jina perf SPECT rest str Reviewed date:09/04/2023 03:51:02 PM Interpretation: Performing Lab: Notes/Report: Source Facility: [facility]-[address] [place] [address] [place] [address] Nuclear Medicine Report Signed Patient: DELFINA CHURCH MR#: [id number] : 1945 Acct:[id number] Age/Sex: 78 / F ADM Date: 09/04/23 Loc: NM Attending Dr: KRISTY GOULD Ordering Physician: KRISTY GOULD Date of Service: 09/04/23 Procedure(s): NM jina perf SPECT rest str Accession Number(s): [id number] cc: KRISTY GOULD Patient Name: DELFINA CHURCH MR#: [id number] : 1945 Exam Date: 09/04/2023 Ordering Doctor: KRISTY GOULD [facility] RADIOLOGY REPORT PROCEDURE: NM JINA PERF [...] Signed By: 09/04/23 1447 DD/ 1446 TD/TT: Raw Stock Dyeing Machine Tender: [place] [address] Nuclear Medicine Report Signed Patient: ILA CHURCH MR#: [id number] : 1945 Acct:[id number] Age/Sex: 78 / F ADM Date: 09/04/23 Loc: [place] Attending Dr: KRISTY GOULD Ordering Physician: KRISTY GOULD Date of Service: 09/04/23 Procedure(s): NM jian perf SPECT rest str Accession Number(s): [id number] cc: KRISTY GOULD Patient Name: DELFINA CHURCH MR#: [id number] : 1945 Exam Date: 09/04/2023 Ordering Doctor: DEBORA GOULD [facility] RADIOLOGY REPORT PROCEDURE: NM JINA PE RF SPECT REST STR COMPARISON: None. INDICATIONS: CHEST PAIN, DYSPNEA TECHNIQUE: Exam Description: Stress/Rest one day protocol gated SPECT Rest Imagin.6 m Ci Tc-99m Cardiolite IV on 09/04/2023 Stress Imaging 30.4 mCi Tc-99m Cardiolite IV on 09/04/2023 Exercise Protocol: 0 .4 mg Lexiscan given IV Heart Rate (bpm): Re st: 52 Max: 85 PMHR: 59 Blood Pressure: [...] ABNORMAL findings. CONCLUSION: 1. Small area of mil dly decreased uptake identified on stress images in the anterior wall stable on rest images possibly breast attenuation 2. No reversible ischemia 3. Abnormal exercise test secondary to EKG changes Dictated by: Bello Germain MD on 09/04/2023 at 14:44 Approved by: Bello Germain MD on 09/04/2023 at 14:46 Dictated By: Allen Germain M.D. Signed By: 09/04/23 1447 DD/ 1446 TD/TT: Raw Stock Dyeing Machine Tender: Reason For Referral Diagnosis 1 Screening for colon cancer (Z12.11) Referral Organization [facility] Referring Provider First Name Kristy Referring [...] EVERYDAY AT BEDTIME for 90 days Active Azelastine HCl 0.05 % 1 drop into affect ed eye Ophthalmic Twice a day prn 08/21/2024 Active Metoprolol Tartrate 25 MG TAKE 1 TABLET BY MOUTH TWICE A DAY WITH FOOD FOR 90 DAYS for 90 Active Losartan Potassium 100 MG TAKE 1 TABLET BY MOUTH EVERY DAY FOR 90 DAYS for 90 Active Citalopram Hydrobromide 10 MG TAKE 1 TAB LET BY MOUTH EVERY DAY FOR 30 DAYS for 90 days Active Meloxicam 7.5 MG 1 tablet Orally Once a day prn for 30 days 08/22/2024 Active Cholecalciferol 25 MCG (1000 UT) 2 capsule Orally Active Immunizations Vaccine Route Administration Date Status [...] Problem Status W/U Status Risk Notes Problem 09334061 Constipation, unspecified (K59.00) Active confirmed Problem Shortness of breath (068956971) Shortness of breath (R06.02) Active confirmed Problem Onychomycosis caused by dermatophyte (133414848) Onychomycosis of toenail (B35.1) Active confirmed Problem Hyperlipidemia (86381725) Hyperlipidemia (E78.5) Active confirmed Problem Hypertension (27272890) Hypertension (I10) Active confirmed Problem Neck pain (64695517) Neck pain (M54.2) Active c onfirmed Problem Electrocardiogram abnormal (535929307) Abnormal EKG (R94.31) Active confirmed Problem Hyperglycemia (24522809) Hyperglycemia (R73.9) Active confirmed Problem History of cholecystectomy (867844163) History of cholecystectomy (Z90.49) Active confirmed Problem Pain of right lower leg (794715175915548) Pain of right lower leg (M79.661) Active confirmed Problem Vitamin D deficiency (00770104) Vitamin D deficiency (E55.9) Active confirmed Problem Pain of right knee region (finding) (033868076696411) Knee pain, right (M25.561) Active confirmed Problem Osteoporosis (67697497) Osteoporosis (M81.0) Active confirmed Problem Nephrolithiasis (05652064) Nephrolithiasis (N20.0) Active confirmed Problem Acute bronchitis (44201913) Acute bronchitis (J20.9) Active confirmed Problem Degeneration of cervical intervertebral disc (36354355) Degeneration, intervertebral disc, cervical (M50.30) Active confirmed Problem Fever (524692599) Fever (R50.9) Active confirme d Problem Urinary tract infection (81545124) Urinary tract infection (N39.0) Active confirmed Problem Poison elyssa (868498435) Poison elyssa (L23.7) Active confirmed Problem Seasonal allergy (887495270) Seasonal allergies (J30.2) Active confirmed Problem Cataract (087946067) Cataract (H26.9) Active co nfirmed Problem Overweight (918932543) Over weight (E66.3) Active confirmed Problem Internal derangement of right knee (95864029534838886) Internal derangement of right knee (M23.91) Active confirmed Problem Nevus (6539548508) Nevus (D22.9) Active confirm ed Problem History of placement of stent for coronary artery disease (situation) (273467305) S/P coronary artery stent placement (Z95.5) Active confirmed Problem Acute depression (815060015) Acute depression (F32.9) Active confirmed Problem Generalized aches and pains (44081401) Body aches (R52) Active confirmed Problem Adult health examination (236199599) Encounter for preventative adult health care examination (Z00.00) Active confirmed Problem Viral infection (90829542) Unspecified viral infection, in conditions classified elsewhere and of unspecified site (B97.89) Active confirmed Problem Prediabetes (622817880) Prediabetes (R73.03) Active confirmed Problem Cyst of right ovary (12332239329288449) Ovarian cyst, right (N83.201) Active confirmed Problem Closed fracture of cervical vertebra without spinal cord injury, unspecified cervical vertebral level, initial encounter (S12.9XXA) Active confirmed Vital Signs Blood pressure diastolic 64 mm Hg 08/21/2024 Height 65 in 08/21/2024 Blood pressure systolic 126 mm Hg 08/21/2024 Weight 204.8 lbs 08/21/2024 BMI 34.08 kg/m2 08/21/2024 Encounters Encounter Location Date Provider Diagnosis [facility] [address] [place] [address] 01/16/2024 Kristy Gould Screening for colon cancer Z12.11 and Screening for osteoporosis Z13.[address] [place] [address] 03/25/2024 Kristy Gould [facility] [address] [place] [address] 08/18/2024 Kristy Gould [facility] [address] [facility] [place] [address] 08/21/2024 Kristy Gould [facility] [address] [place] [address] 09/04/2023 KRISTY GOULD [facility] [address] [facility] [place] [address] 10/19/2023 Kristy Gould [facility] [address] [place] [address] 01/16/2024 Kristy Gould Encounter for [employer] annual wellness exam Z00.00 [facility] [address] [facility] [place] [address] 02/25/2024 Kristy Gould Acute depression F32 .9 [facility] [address] [facility] [place] [address] 08/21/2024 Kristy Gould Knee pain M25.569 ; Left axillary pain [...] getting enough sleep discussed counseling denies SI 08/21/2024 Knee pain (ICD-10 - M25.569) meloxicam? 08/21/2024 Left axillary pain (ICD-10 - M79.622) 01/16/2024 Screening for colon cancer (ICD-10 - Z12.11) 01/16/2024 Screening for osteoporosis (ICD-10 - Z13.820) 08/21/2024 Seasonal allergies (ICD-10 - J30.2) Plan Of Treatment Pending Test Test Name [...] Insulin Level 07/26/2023 Cardiolyte Stress Test 07/26/2023 XR KNEE LT 3V 08/21/2024 XR KNEE RT 3V 08/21/2024 THYROID PANEL (T4/TSH/FREE T3) 4 DEXA BONE DENSITY 01/16/2024 SOFT TISSUE LIMITED AREA 08/21/2024 Insurance Providers Payer Name Payer Address Payer Phone Subscriber Number Group Number Insured Name Patient Relationship to Insured Coverage Start Date Coverage End Date [employer] [address] [facility] [place] [phone] [id number] Delfina Church Self - patient is the [...] 5 Cataract H26.9 Surgical History Surgery Date(Month/Year) Cardiac cath- Dr. Benavidez 2024 Knee Surgery- Right Ovarian Cyst Gall Bladder
--- OUTSIDE RECORDS SUMMARY | 2024-08-28 14:03 | XMS_ITS | Encounter Summary ---
Author Organization [facility] Address [address] [place] [address] Care Team Providers Care Land Appraiser Name Role Phone Unallocated, Noms Provider Primary Care Provi homar Encounter Details Date Type Department Care Team ([facility] st Contact Info) Description 01/24/2024 Abstract MADDI [facility] POD [address] [place] [address] DolLeno manzanares R, DPM FACFAS [address] [facility] [place] [address] Social History Tobacco Use Types Packs/Day Years [...] on filedocumented in this encounter Care Teams Land Appraiser Relationship Specialty Start Date End Date Unallocated, Noms Provider, MD Hussein BENNETT [place], [place] [address] PCP - General Family Medicine 01/23/24 documented as of this encounter
--- OUTSIDE RECORDS SUMMARY | 2024-08-28 14:03 | XMS_ITS | Encounter Summary ---
Author Organization [facility] Address [address] [place] [address] Phone Care Team Providers Care Sheet Metal Lay Out Worker Name Role Phone Mateus Meeks MD Primary Care Provider [phone] Encounter Details Date Type Department Care Team (Late st Contact Info) Description 09/23/2019 Orders Only [facility] [address] [place] [address] Conversion, Onbase Social History Tobacco Use Types [...] on filedocumented in this encounter Care Teams Sheet Metal Lay Out Worker Relationship Specialty Start Date End Date Mateus Meeks MD [address] [place] [address] PCP - General 12/08/21 documented as of this encounter
--- OUTSIDE RECORDS SUMMARY | 2024-08-28 14:03 | XMS_ITS | Clinical Summary ---
Author Organization [facility] Address [address] [place] [address] Phone Care Team Providers Care Credentialing Analyst Name Role Phone Mateus Meeks MD Primary Care Provider [phone] Allergies No known active allergies Medications aspirin [...] patient's age [place] complete [place] [address] [facility] Care Teams Credentialing Analyst Relationship Specialty Start Date End Date Mateus Meeks MD [address] [place] [address] PCP - General 12/08/21
--- OUTSIDE RECORDS SUMMARY | 2024-08-28 14:03 | XMS_ITS | Encounter Summary ---
Author Organization [facility] Address [address] [place] [address] Phone Care Team Providers Care Occupational Psychologist Name Role Phone Mateus Meeks MD Primary Care Provider [phone] Encounter Details Date Type Department Care Team (Late st Contact Info) Description 09/21/2023 Scanned Document [facility] [address] [place] [address] Scanning, Generic Provider Social History Tobacco Use [...] documented as of this encounter Care Teams Occupational Psychologist Relationship Specialty Start Date End Date Mateus Meeks MD [address] [facility] [place] [address] PCP - General 12/08/21 documented as of this encounter
--- OUTSIDE RECORDS SUMMARY | 2024-08-28 14:03 | XMS_ITS | Clinical Summary ---
Author Organization [facility] Address [address] [place] [address] Care Team Providers Care Hub Associate Name Role Phone Unallocated, [facility] Provider MD Primary Care Provi homar [...] 2, 12/09/2013 Insurance [employer] Care Teams Hub Associate Relationship Specialty Start Date End Date Unallocated, Noms Provider, [address] [place] [address] PCP - General Family Medicine 01/23/24
--- NOTE | 2024-08-28 14:08 | XR_ITS ---
The [place] [id number] Patient Name: DELFINA GONZALEZ MRN: [id number] date: 1945 Sex: F Assigned Patient Location: [place] Current Patient Location: [place] Accession/Order Number: [id number] Exam Date: 08/28/2024 14:49 Report Date: 08/28/2024 14:51 At the request of: SUZE JOHNSON Procedure: XR knee LUCERO 3V 3 views both knees HISTORY: Chronic bilateral knee pain comparison 12/14/2021 right knee Mild to moderate bilateral knee degeneration greatest in medial compartments. Atherosclerosis. No joint effusion. Adequate alignment. No acute displaced fracture. XR/XR knee LUCERO 3V IMPRESSION: Mild to moderate bilateral knee degeneration greatest in medial compartments. Impression dictated by: Niko Dickson M.D. 08/28/2024 2:51 PM Dictation Location: [place] [address] Electronically authenticated by: [id number] Y Date: 08/28/2024 14:51
== END 2024-08-28 14:01 | disposition home or self-care (01) ==
LOC: US 14:00
PROVIDERS: PCP Nurse Practitioner Family; Visit Provider Nurse Practitioner Family
DX: M79.622 Pain in left upper arm (principal); M25.562 Pain in left knee; M25.561 Pain in right knee; M17.0 Bilateral primary osteoarthritis of knee
CPT/HCPCS: 73562; 76882

== ENCOUNTER 2024-11-20 09:24 | Outpatient (OUT) | payer OTHER, SELFPAY ==
--- OUTSIDE RECORDS SUMMARY | 2024-11-20 09:28 | XMS_ITS | Encounter Summary ---
Author Organization [facility] Address [address] [place] [address] Phone Care Team Providers Care Hearing Aid Assistant Name Role Phone Mateus Meeks MD Primary Care Provider [phone] Encounter Details Date Type Department Care Team (Late st Contact Info) Description 09/23/2019 Orders Only [facility] [address] [place] [address] Conversion, Onbase Social History Tobacco Use Types [...] on filedocumented in this encounter Care Teams Hearing Aid Assistant Relationship Specialty Start Date End Date Mateus eMeks MD [address] [place] [address] PCP - General 12/08/21 documented as of this encounter
--- OUTSIDE RECORDS SUMMARY | 2024-11-20 09:28 | XMS_ITS | Clinical Summary ---
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 Care Teams Dispatch Clerk Relationship Specialty Start Date End Date Jorge Enriquez DO PCP - General Family Medicine 05/20/15 Addi Espinal Referring Pain Management 05/20/15
--- OUTSIDE RECORDS SUMMARY | 2024-11-20 09:28 | XMS_ITS | Clinical Summary ---
Author Organization [facility] Address [address] [place] [address] Phone Care Team Providers Care Loan Documentation Specialist Name Role Phone Mateus Meeks MD Primary Care Provider [phone] Allergies No known active allergies Medications aspirin [...] Health Maintenance Due Date Last Done Comments Lipid Panel 1945 Medicare Annual Wellness Vis it (AWV) 1945 Hepatitis C Screening 1965 DTaP/Tdap/Td Vaccines (1 - Tdap) 1969 Zoster Vaccines (1 of 2) 1997 Bone Density Scan 2012 RSV High Risk: (Elderly (60+ ) or Population) (1 - 1-dose 75+ series) 2022 COVID-19 Vaccine (2 - 2024-2 6 season) 2024 06/21/2020 Influenza Vaccine (#1) 2024 12/09/2013 Pneumococcal Vaccine Completed 12/14/2021, 12/09/2013 [...] patient's [place] [address] [facility] Care Teams Loan Documentation Specialist Relationship Specialty Start Date End Date Mateus Meeks MD [address] [place] [address] PCP - General 12/08/21
--- OUTSIDE RECORDS SUMMARY | 2024-11-20 09:28 | XMS_ITS | Encounter Summary ---
Author Organization [facility] Address [address] [place] [address] Care Team Providers Care Door Person Name Role Phone Unallocated, Noms Provider Primary Care Provi homar Encounter Details Date Type Department Care Team ([facility] st Contact Info) Description 01/24/2024 Abstract MADDI NMA POD [address] [place] [address] DolLeno manzanares R, DPM FACFAS [address] [facility] [place] [address] Social History Tobacco Use Types Packs/Day Years [...] on filedocumented in this encounter Care Teams Door Person Relationship Specialty Start Date End Date Unallocated, Noms Provider, MD Hussein [address]ENNETT [place], [place] [address] PCP - General Family Medicine 01/23/24 documented as of this encounter
--- OUTSIDE RECORDS SUMMARY | 2024-11-20 09:28 | XMS_ITS | Encounter Summary ---
Author Organization [facility] Address [address] [place] [address] Phone Care Team Providers Care Medical Malpractice Paralegal Name Role Phone Mateus Meeks MD Primary Care Provider [phone] Encounter Details Date Type Department Care Team (Late st Contact Info) Description 03/28/2021 Orders Only [facility] [address] [place] [address] Conversion, Onbase Social History Tobacco Use Types [...] on filedocumented in this encounter Care Teams Medical Malpractice Paralegal Relationship Specialty Start Date End Date Mateus Meeks MD [address] [place] [address] PCP - General 12/08/21 documented as of this encounter
--- OUTSIDE RECORDS SUMMARY | 2024-11-20 09:28 | XMS_ITS | Encounter Summary ---
Author Organization [facility] Address [address] [place] [address] Phone Care Team Providers Care Blueprinting And Photocopy Supervisor Name Role Phone Mateus Meeks MD Primary Care Provider [phone] Encounter Details Date Type Department Care Team (Late st Contact Info) Description 09/19/2019 Orders Only [facility] [address] [place] [address] Conversion, Onbase Social History Tobacco Use Types [...] on filedocumented in this encounter Care Teams Blueprinting And Photocopy Supervisor Relationship Specialty Start Date End Date Mateus Meeks MD [address] [place] [address] PCP - General 12/08/21 documented as of this encounter
--- OUTSIDE RECORDS SUMMARY | 2024-11-20 09:29 | XMS_ITS | Encounter Summary ---
Author Organization [facility] Address [address] [place] [address] Phone Care Team Providers Care Body Art Technician Name Role Phone Mateus Meeks MD Primary Care Provider [phone] Encounter Details Date Type Department Care Team (Late st Contact Info) Description 09/21/2023 Scanned Document [facility] [address] [place] [address] Scanning, Generic Provider Social History Tobacco Use [...] documented as of this encounter Care Teams Body Art Technician Relationship Specialty Start Date End Date Mateus Meeks MD [address] [facility] [place] [address] PCP - General 12/08/21 documented as of this encounter
--- OUTSIDE RECORDS SUMMARY | 2024-11-20 09:29 | XMS_ITS | Clinical Summary ---
Author Organization [facility] Healthcare Address [address] [place] [address] Care Team Providers Care Neck Band Operator Name Role Phone Unallocated, [place] Provider MD Primary Care Provi homar Allergies [...] Medicare Annual Wellness (AWV) 1945 Influenza Vaccine (#1) 2024 12/09/2013 Pneumococcal Vaccine: 65+ Years Completed , 12/09/2013 Insurance [employer] Care Teams Neck Band Operator Relationship Specialty Start Date End Date Unallocated, [place] Provider, [address] [place] [address] PCP - General Family Medicine 01/23/24
--- OUTSIDE RECORDS SUMMARY | 2024-11-20 09:31 | XMS_ITS | CCD ---
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 Role Phone Unavailable Unavailable Yanna Meeks [...] Unavailable YVAN FLORES Consulting Unavailable SUZE JOHNSON S Primary Care Physician MD Yanna Meeks Primary Care Provider [phone] DO Sandrita Titus Attending Provider [phone] RIKY TITUS Referring Unavailable YANNA MEEKS Primary Care Unavailable Yanna Meeks MD Primary Care Provider RIKY TITUS Attending Unavailable YANNA MEEKS Primary Care Unavailable RIKY TITUS Attending Unavailable RIKY TITUS Referring Unavailable YANNA MEEKS Primary Care Unavailable LAURA FOX Referring Unavailable DONTRELL SANTOS Attending Unavailable Unallocatchelle LEONE, Yolandas Provider Primary Care Provi homar Jeanie Hennessy Attending Unavailable Jeanie Hennessy Admitting Unavailable Jeanie Hennessy Attending Unavailable Yanna Meeks MD Primary Care Provider [phone] Jeanie Sunshine Attending Provider [phone] Sandrita Titus Admitting Unavailable Sandrita Titus Attending Unavailable Yanna Meeks Primary Care Unavailable Sandrita Titus Admitting Unavailable Sandrita Titus Attending Unavailable Yanna Meeks Primary Care Unavailable Jeanie Hennessy Admitting Unavailable Jeanie Hennessy Attending Unavailable Yanna Meeks Primary Care Unavailable KRYSTAL MONTOYA Admitting Unavailab KRYSTAL Mesa Consulting Unavailab KRYSTAL Mesa Attending Unavailab le ODELL MONTOYA E Consulting Unavailable ODELL MONTOYA E Consulting Unavailable ODELL MONTOYA Consulting Unavailable ODELL MONTOYA Consulting Unavailable Jeanie Hennessy X Attending Unavailable Jeanie Hennessy X Attending Unavailable Jeanie Hennessy X Attending Unavailable Medications Current Medications Medication Drug Class(es) Dates Sig (Normalized) Sig (Original) acetaminophen 500 mg oral tablet (5 sources) Start: 11-02-2020 take 2 tablets by mouth every six hours as needed for pain Tylenol Extra Strength 500 mg oral tablet 1,000 mg = 2 tab(s), Oral, q6hr, PRN as needed for pain, Refills(s) 0 Start Date: 11/02/20 Status: Ordered Repeat number: 1 take 1 tablet by natalee th every six hours as needed acetaminophen (Tylenol Extra Strength) 5 00 mg tablet Take 1 tablet (500 mg) by mouth every 6 hours if needed for mild pain (1 - 3). Active aspirin 81 mg chewable tablet (15 sources) Platelet Aggregation Inhibitor, Nonsteroidal Anti-inflammatory Drug Start: 09-19-2019 take 1 tablet by mouth once daily in the evening Aspirin 81 mg Tablet,Chewable Active 81 MG PO Every evening September 19, 2019 12:00am Start: 11-04-2015 take 81 mg by mouth once daily aspirin 81 mg, Oral, Daily, Refills(s) 0, Blood Thinner Start Date: 11/04/15 Status: Ordered Repeat number: 1 take 1 tablet by natalee th once daily aspirin 81 mg EC tablet Take 1 tablet (81 mg) by mouth once daily. Active Calcium Citrate / Vitamin D (4 sources) Start: 11-02-2020 take 1 tablet by mouth once daily calcium-vitamin D 1 tab, Oral, Daily, Refill(s) 0, Prophylaxis Start Date: 11/02/20 Status: Ordered Repeat number: 1 Start: 11-02-2020 take 1 tablet by natalee th once daily calcium-vitamin D 1 tab, Oral, Daily, Refill(s) 0, Prophylaxis Start Date: 11/02/20 Status: Ordered cholecalciferol 0.125 mg oral tablet (11 sources) Vitamin D Start: 09-19-2019 take 1 tablet by mouth once daily Cholecalciferol (Vitamin D3) (Vitamin D3) 125 mcg (5,000 unit) Tablet Active 12128 UNIT PO Daily September 19, 2019 12:00am take 1 capsule by mouth once mitchell ly cholecalciferol (Vitamin D-3) 125 MCG (5000 UT) capsule Take 1 capsule (125 mcg) by mouth once daily. Active citalopram 10 mg oral tablet (2 sources) Serotonin Reuptake Inhibitor Start: 01-17-2024 take 1 tablet by mouth once daily citalopram (CeleXA) 10 MG tablet TAKE 1 TABLET BY MOUTH EVERY DAY FOR 30 DAYS 01/17/2024 Active diclofenac sodium 75 mg delayed release oral tablet (14 sources) Nonsteroidal Anti-inflammatory Drug Start: 09-21-2023 take 1 tablet by mouth twice daily Diclofenac Sodium 75 mg tablet,delayed release (DR/EC) Active 75 MG PO Twice daily September 21, 2023 12:00am End: 09-20-2023 take 1 tablet by mouth once daily diclofenac (Voltaren) 75 mg EC tablet Take 1 tablet (75 mg) by mouth once daily. 09/20/2023 Discontinued (Therapy completed) losartan potassium 100 mg oral tablet (17 sources) Angiotensin 2 Receptor Shantelle Start: 09-19-2019 take 1 tablet by mouth once daily losartan 100 mg Tab 100 mg = 1 tab(s), Oral, Daily, Refills(s) 0, High blood pressure Start Date: 11/02/20 Status: Ordered Repeat number: 1 24 hr metoprolol succinate 25 mg extended release oral tablet (18 sources) beta-Adrenergic Shantelle Start: 11-02-2020 take 1 tablet by mouth twice daily metoprolol 25 mg ER Tab 25 mg = 1 tab(s), Oral, BID, Refills(s) 0, High blood pressure Start Date: 11/02/20 Status: Ordered Repeat number: 1 Start: 09-19-2019 take 1 tablet by natalee th twice daily Metoprolol Tartrate 25 mg tablet Active 25 MG PO Twice daily 60 September 19, 2019 12:00am 24 hr nitroglycerin 0.4 mg/hr transdermal system (12 sources) Nitrate Vasodilator Start: 09-20-2023 End: 09-19-2024 apply 0.4 mg transdermal route once daily nitroglycerin (Nitro-Dur) 0.4 mg/hr patch Indications: Angina, class III (CMS-HCC) Place 1 patch over 12 hours on the skin once daily. 90 patch 3 09/20/2023 09/19/2024 Active Start: 09-19-2019 End: 09-19-2024 Nitroglycerin (Nitrostat) 0. 4 mg tablet, sublingual Active 0.4 MG SUBLINGUAL Q5M as needed for chest pain September 19, 2019 12:00am do not exceed 3 doses per episode Start: 09-19-2019 apply 0.4 mg transde rmal route every hour, then apply 1 dose transdermal route every twenty-four hours Nitroglycerin (Nitro-Dur) 0.4 mg/hr patch 24 hour Active 1 PATCH TRANSDERML Daily 30 September 19, 2019 12:00am allow nitrate-free interval of approx. 10-12 hrs per 24-hour period rosuvastatin calcium 40 mg oral tablet (17 sources) HMG-CoA Reductase Inhibitor Start: 09-19-2019 take 1 tablet by mouth once daily rosuvastatin 40 mg Tab 40 mg = 1 tab(s), Oral, Daily, Refills(s) 0, High cholesterol Start Date: 11/02/20 Status: Ordered Repeat number: 1 vit A/vit C/vit E/zinc/copper (PRESERVISION AREDS ORAL) (1 source) take 1 tablet by mouth in the morning vit A/vit C/vit E/zinc/copper (PRESERVISION AREDS ORAL) Take 1 tablet by mouth early in the morning.. Active Completed/Discontinued Medications Medication Drug Class(es) Dates Sig (Normalized) Sig (Original) smoking cessation 12 hr buPROPion hydrochloride 150 mg extended release oral tablet (3 sources) Aminoketone Start: 09-19-2019 End: 09-21-2023 take 1 tablet by mouth once daily, then take 1 tablet by mouth every twelve hours Bupropion Hcl (Smoking Deter) 150 mg Tablet Extended Release 12 Hr Discontinued 150 MG PO Daily September 19, 2019 12:00am September 21, 2023 8:25am gabapentin 300 mg oral capsule (3 sources) Anti-epileptic Agent Start: 09-19-2019 End: 09-21-2023 take 1 capsule by mouth once daily at bedtime Gabapentin 300 mg capsule Discontinued 300 MG PO Daily at bedtime September 19, 2019 12:00am September 21, 2023 8:25am Vitamin B Complex-Folic Acid (B Complex 100) 0.4 mg Tablet (3 sources) Start: 09-19-2019 End: 09-21-2023 take 1 tablet by mouth once daily Vitamin B Complex-Folic Acid (B Complex 100) 0.4 mg Tablet Discontinued 1 TAB PO Daily September 19, 2019 12:00am September 21, 2023 8:27am Problems Active Problems Problem Classification Problem Date Documented Date Episodic/Chronic Acute myocardial infarction (4 sources) Myocardial infarction 11-02-2020 Chronic Calculus of urinary tract (13 sources) Personal history of urinary calculi; Translations: [Kidney stone] Onset: 07-11-2021 Episodic Conditions associated with dizziness or vertigo (4 sources) Vertigo 11-02-2020 Episodic Coronary atherosclerosis and other heart disease (20 sources) Coronary arteriosclerosis; Translations: [Coronary atherosclerosis of unspecified type of vessel, [place] or graft] Onset: 12-19-2021 11-02-2020 Chronic Diabetes mellitus without complication (1 source) Other abnormal glucose; Translations: [OTHER ABNORMAL GLUCOSE] Onset: 12-16-2021 Episodic Disorders of lipid metabolism (20 sources) Hyperlipidemia; Translations: [Other and unspecified hyperlipidemia] Onset: 12-14-2021 Chronic Essential hypertension (20 sources) Hypertensive disorder; Translations: [Unspecified essential hypertension] Onset: 12-19-2021 05-12-2015 Chronic Genitourinary symptoms and ill-defined conditions (3 sources) Microscopic hematuria; Translations: [Other microscopic hematuria] Onset: 07-16-2023 Episodic Malaise and fatigue (3 sources) Other fatigue; Translations: [Fatigue] Onset: 10-23-2023 Episodic Mycoses (2 sources) Onychomycosis due to dermatophyte ; Translations: [Tinea unguium] 01-25-2024 Episodic Nonspecific chest pain (7 sources) Chest pain; Translations: [Chest pain, unspecified] Onset: 12-25-2023 09-19-2019 Episodic Nutritional deficiencies (1 source) Vitamin D deficiency, unspecified; Translations: [VITAMIN D DEFICIENCY UNSPECIFIED] Onset: 12-16-2021 Chronic Osteoarthritis (5 sources) Unspecified osteoarthritis, unspecified site; Translations: [Arthritis] Onset: 12-19-2021 11-02-2020 Chronic Other aftercare (1 source) retirement (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; Translations: [[facility] CURRENT USE OF ASPIRIN] Onset: 12-19-2021 Episodic Other aftercare (1 source) 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; Translations: [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 [employer] 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 CURRENT DRUG THERAPY] Onset: 12-19-2021 Episodic Other and ill-defined heart disease (4 sources) Heart disease 11-02-2020 Chronic Other connective [...] Onset: 12-16-2021 Episodic Other connective tissue disease (4 sources) H/O: osteoarthritis 05-12-2015 Episodic Other diseases of kidney and ureters (4 sources) Hydronephrosis 11-02-2020 Episodic Other non-traumatic joint disorders (1 source) Pain in right knee; Translations: [PAIN IN RIGHT KNEE] Onset: 12-16-2021 Episodic Other nutritional; endocrine; and metabolic disorders (5 sources) Obesity; Translations: [Obesity, unspecified] Chronic Other nutritional; endocrine; and metabolic disorders (8 sources) Body mass index 30+ - obesity; Translations: [Body mass index (BMI) 34.0-34.9, adult] Onset: 09-20-2023 11-02-2020 Chronic Other nutritional; endocrine; and metabolic disorders (2 sources) Body mass index (BMI) 34.0-34.9, adult; Translations: [Body mass index (BMI) 34.0-34.9, adult] Onset: 09-20-2023 Chronic Other skin disorders (2 sources) Ingrowing great toenail; Translations: [Ingrowing nail] 01-24-2024 Episodic Residual codes; unclassified (1 source) Acquired absence of other specified parts of digestive tract; Translations: [ACQ ABSENCE OTH PART DIGESTV TRACT] Onset: 12-19-2021 Episodic Residual codes; unclassified (1 source) Localized edema; Translations: [LOCALIZED EDEMA] Onset: 12-19-2021 Episodic Residual codes; unclassified (4 sources) Never smoked tobacco; Translations: [Other specified health status] Onset: 09-20-2023 12-25-2023 Episodic Residual codes; unclassified (2 sources) Other specified health status; Translations: [Other specified health status] Onset: 09-20-2023 Episodic Skin and subcutaneous tissue infections (2 sources) Cellulitis of right toe; Translations: [Cellulitis and abscess of toe, unspecified] 01-25-2024 Episodic Syncope (3 sources) Syncope and collapse; Translations: [Syncope and collapse] Onset: 10-23-2023 Episodic Unclassified (4 sources) Long-term current use of aspirin 11-02-2020 Past or Other Problems Problem Classification Problem Date Documented Da te Episodic/Chronic Coronary atherosclerosis and other heart disease (3 sources) Presence of coronary angioplasty implant and graft; Translations: [Coronary angioplasty status] Onset: 07-11-2021 Episodic E Codes: Struck by; against (1 source) Striking against other object with subsequent fall, initial encounter; Translations: [STRIK AGNST OTH OBJ SBSQT FALL INIT] Onset: 07-11-2021 Episodic Other lower respiratory disease (4 sources) Shortness of breath; Translations: [Shortness of breath] Onset: 09-20-2023 Episodic Other lower respiratory disease (5 sources) Dyspnea; Translations: [Shortness of breath] Onset: 09-20-2023 09-20-2023 Episodic Other lower respiratory disease (4 sources) Dyspnea on exertion; Translations: [Other forms of dyspnea] Onset: 09-20-2023 09-20-2023 Episodic Other lower respiratory disease (2 sources) Other forms of dyspnea; Translations: [Other forms of dyspnea] Onset: 09-20-2023 Episodic Other non-traumatic joint disorders (3 sources) Pain in right shoulder; Translations: [PAIN IN RIGHT SHOULDER] Onset: 07-08-2021 Episodic Superficial injury; contusion (2 sources) Contusion of right shoulder, initial encounter; Translations: [Contusion of right elbow, initial encounter] Onset: 07-11-2021 Episodic Unclassified (5 sources) Never smoked tobacco; Translations: [Never a smoker] Unclassified (3 sources) Onset: 09-20-2023 09-20-2023 Results Test Name Value Interpretation Reference Range Facility Reminderson 07-08-2024 Reminders Reminders From: ERNESTINE Hennessy APRN, Jeanie Crowder To: [facility]; Sent: 07/08/2024 13:06:52 EDT Show up: 01/07/2025 13:06:00 EDT Subject: Reminder Message Reminder Message KUB/JOHNNY prior to 1 yr f/u for stone monitoring KUB at [facility], pt prefers JOHNNY at [facility] Urology Office/Clinic Noteon 07-08-2024 Urology Office/Clinic Note Urology Office/Clinic Note Chief Complaint kidney stone HPI Staff 6 month follow up w/KUB & JOHNNY Dx: kidney stone and microhematuria Pt denies all urinary complaints at this time. Denies any visible blood at any time and no pain of any kind. JOHNNY 06/06/24 - 5 mm stone right kidney KUB 07/02/24 - neg History of Present Illness Tests reviewed: UA, JOHNNY, & KUB. I have reviewed the previous health record information and history for this patient from ERNESTINE Anderson APRN. I have reviewed and verified the staff HPI to be accurate for this encounter. Review of Systems ROS - Provider Constitutional: denies weight loss, denies hot flashes. Eyes: denies eye problems. Gastrointestinal: denies nausea, denies vomiting. Cardiovascular: denies chest pain or angina. Integumentary: no dryness Musculoskeletal: denies musculoskeletal symptoms. ENMT: denies otolaryngeal symptoms. Respiratory: no shortness of breath. Heme/Lymph: denies easy bleeding tendency, denies easy bruising tendency. Psychiatric: no confusion, no anxiety. Genitourinary: See HPI. Physical Exam Vitals & Measurements T: 37 ???C(Temporal Artery) HR: 69(Peripheral) RR: 17 BP: 132/79 HT: 65 in HT: 165 cm WT: 202.384 lb WT: 91.8 kg BMI: 33.72 General Appearance: alert, no distress, well nourished, well developed female. Assessment/Plan Delfina 79 yo female present here today for 6 month follow up w/ KUB & JOHNNY. 1. Kidney stone (N20.0: Calculus of kidney) S/p cysto/ RRG/scope/laser/R stent placement done 12/15/20 and cysto/ R stent removal done 01/03/21. [1] CT AP w/o con 06/02/23 [facility] - 2 mm left mid ureteral stone, mild left hydroureter and hydronephrosis. Multiple bilateral kidney stones measuring up to 3 mm in the right. -Passed stone ~1.5 wks later Litholink 08/13/23 - test not performed as collection was >26hrs. JOHNNY 06/06/24 [facility] - 5 mm stone right kidney KUB 07/02/24 [facility] - negative. Reviewed imaging with patient today. Last stone passage was May of 2023. Denies any stone episodes. Denies any urinary tract infections. ~Admits to not drinks much water, drinks juice in the morning. Recommended pt to increase fluid intake to ten to twelve 16 oz bottles a day, preferably water, clear pop, and sugar free lemonade. Discussed general dietary modifications for stone prevention including high fluid intake with >2.5L output daily, adding lemon juice increase their urinary citrate levels, limited sodium and animal protein intake. Shares she has decreased pop intake. Reviewed prior imaging. Advised pt size of stones are passable if they were to move into the ureter. Pt wishes to continue to monitor stones with imaging. -Increase water intake -F/u in 1yr w/ KUB and JOHNNY 2. Ureteral stone (N20.1: Calculus of ureter) 3. Microhematuria (R31.29: Other microscopic hematuria) UA today shows trace lueks. Denies any gross hematuria or dysuria at this time. Pt knows to notify the office if they were to experiences gross hematuria or clots. 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 . Documentation recorded by the clementina Wallace accurately reflects the services(s) I performed and decisions made by me. Authenticated by Jeanie Hennessy APRN, FNP-C on 07/08/2024 13:08:29. Problem List/Past Medical History Ongoing Arthritis Aspirin long-term use BMI 33.0-33.9,adult CAD (coronary artery disease) Heart attack Heart disease High cholesterol History of osteoarthritis HTN (hypertension) Hydronephrosis Kidney stone Microhematuria Ureteral stone Vertigo Historical No qualifying data [...] Daily calcium-vitamin D, 1 tab, Oral, Daily citalopram 10 mg Tab, 1.0, Oral, Daily losartan 100 mg Tab, 100 mg= 1 tab(s), Oral, Daily metoprolol 25 mg ER Tab, 25 mg= 1 tab(s), Oral, BID rosuvastatin 40 mg Tab, 40 mg= 1 tab(s), Oral, Daily Tylenol Extra Strength 500 mg oral tablet, 1000 mg= 2 tab(s), Oral, q6hr, PRN Allergies No Known Allergies Social History Alcohol - Low Risk, 06/29/2015 Never., 07/07/2024 Substance Abuse - Denies Substance Abuse, 06/29/2015 Never., 04 (more content not included)... Normal [facility] Comment on above: Result Comment: Elec tronically Signed By: ERNESTINE Hennessy APRN, [place] X\.br\Date and Time Signed: 07/08/24 13:08 EDT\.br\Electronically Co-Signed By: Paul Wallace\.br\Date and Time Co-Signed: 07/08/24 13:05 EDT XR Abdomen 1 Viewon 07-03-19 XR Abdomen 1 View Exam Date/Time: 07/02/2024 15:57 EDT Reason for Exam: Kidney stone Report IMPRESSION: NONSPECIFIC ABDOMEN. CLINICAL HISTORY: Kidney stone COMPARISON: NONE. FINDINGS: Gas and stool in colon. Gas in small bowel. No focal or diffuse small bowel dilatation. Colon overlies lower pole right kidney. No calcifications are identified. Phleboliths unchanged. Surgical clips region gallbladder fossa. Osseous structures intact. Technical Comments: Ka,r in mGy = na DAP = na Ordering Provider: , FINAL REPORT Dictated: 07/02/2024 4:15 pm Benito Jay MD Signed (Electronic Signature): 07/02/2024 4:15 pm Signed by: Benito Jay MD Transcribed by: LEONARD Technologist: BRADLY Cadet [facility] US renal BIon 06-06-2024 US renal BI [facility] [place] [address] Ultrasound Report Signed Patient: Delfina Church MR#: [id number] : 1945 Acct:[id number] Age/Sex: 79 / F ADM Date: 06/06/24 Loc: Room: Type: [facility] Attending Dr: Jeanie EDMONDS Ordering Provider: KENDAL Anderson Date of Service: 06/06/24 US/US renal BI: N20.0 Copies to: KENDAL Anderson BILATERAL RENAL AND BLADDER ULTRASOUND CLINICAL HISTORY: History of kidney stones. COMPARISON: None FINDINGS: Estimation of renal size is approximately 10.98 cm on the right and 11.87 cm on the left. 5 mm stone right kidney. No hydronephrosis of either kidney. No mass. The urinary bladder is partially distended with a volume of 251.61 ml. No shadowing stone or focal lesion. No significant postvoid residual. US/US renal BI IMPRESSION: RIGHT NEPHROLITHIASIS WITHOUT HYDRONEPHROSIS. Impression dictated by: Jorje Sheridan Jr., D.OLuther06/06/2024 3:50 PM Dictation Location: [place] [address] Tech: Yanely Lee Transcribed By: JUSTYNA 06/06/24 1550 Dictated By: Jorje Sheridan Jr, DO 06/06/24 1549 Signed By: 06/06/24 1550 Normal [facility] Reminderson 06-04-2024 Reminders Reminders From: Tiff Zepeda To: [facility] - Recalls [place]; Sent: 12/20/2023 09:23:54 EDT Show up: 05/19/2024 09:23:00 EDT Subject: Imaging for f/u Due Date/Time: 06/19/2024 09:23:00 EDT Reminder Message Pt needs KUB and JOHNNY done prior to appt in 6 mos. Prefers [facility]. Order in 12/20/23 encounter (dx: kidney stone). Pt is scheduled for 06/19 at 3:10. Sent order for JOHNNY for [facility]. Pt will have KUB done IO. 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 Church, We have been trying to reach you with no success regarding a referral from Lily Johnson. It is important that you return our call upon receiving this letter. Also, at the time of your call, please provide us with your current information. Thank you for your prompt attention to this matter. Sincerely, [facility] General Surgery [phone] Normal [facility] Ambulatory Visit Summaryon 1 Ambulatory Visit Summary Ambulatory Visit Summary CHURCHDELFINA JONAS :1945 Visit Date:10/12/2020 Ambulatory Visit Instructions Your Diagnosis Kidney stone Tests Performed KUB -- Results Pending -- Please visit your patient portal for your results or contact your primary care physician. Your Care Team Primary Care Physician - SUZE JOHNSON CNP [...] angioplasty of coronary artery, Tubal ligation. Medications What How Much When Instructions Changed acetaminophen (Tylenol Extra Strength 500 mg oral [...] Tab) 1 Tablets By Mouth Every day Allergies No Known Allergies Problems Ongoing - Any problem that you are currently receiving treatment for. Arthritis Aspirin long-term use BMI 33.0-33.9,adult CAD (coronary artery disease) Heart attack Heart disease High cholesterol History of osteoarthritis HTN (hypertension) Hydronephrosis Kidney stone Microhematuria Ureteral stone Vertigo Patient Survey You may receive a survey via text or e-mail asking about your office visit. Please share your experience with us by completing your survey. We appreciate your feedback and thank you for choosing us for your care. Normal [facility] Urology Office/Clinic Noteon 12-20-2023 Urology Office/Clinic Note Urology Office/Clinic Note Chief Complaint kidney stone HPI Staff 5 month f/u. Pt did not complete the [facility]. Dx: kidney stone and microhematuria Dysuria: denies Incomplete bladder emptying: denies Hematuria: denies Frequency: every 3-4 hours Urgency: denies Nocturia: 2x Stream: slower every once in a while but states mostly good and steady Leaking: denies Post void dripping: denies Wearing pads/ Depends: denies Urge incontinence: denies Stress incontinence: every now and then if bladder is full and sneezes hard or coughs hard Incontinence without Sensory Awareness: denies Abdominal pain: denies Flank pain: denies Sexual complaints: denies History of Present Illness Tests reviewed: reviewed UA I have reviewed the previous health record information and history for this patient from Jeanie Hennessy NP. I have reviewed and verified the staff HPI to be accurate for this encounter. Review of Systems PHQ Score Initial Depression Screen Score: 0 SCORE Physical Exam Vitals & Measurements T: 37 ?C(Temporal Artery) HR: 68(Peripheral) RR: 16 BP: 132/72 HT: 65 in HT: 165 cm WT: 94 kg WT: 206.8 lb BMI: 34.53 General Appearance: alert , no acute distress, well nourished, well developed female. Assessment/Plan BBS 5 (4) - no bother with urination. 1. Kidney stone (N20.0: Calculus of kidney) s/p cysto/ RRG/scopy/laser/R stent placement done 12/15/20 and cysto/ R stent removal done 01/03/21. [1] CT AP w/o con 06/02/23 [facility] - 2 mm left mid ureteral stone, mild left hydroureter and hydronephrosis. Multiple bilateral kidney stones measuring up to 3 mm in the right. -Passed stone ~1.5 wks later Would like to avoid procedure in the future at all cost, given that she had so much discomfort from stent previously. [facility] 08/13/23 - test not performed as collection was >26hrs. Recommended repeat testing but pt elected not to as she has a busy schedule. Discussed general dietary modifications for stone prevention including high fluid intake with >2.5L output daily, adding lemon juice increase their urinary citrate levels, limited sodium and animal protein intake. Shares she has decreased pop intake. Reviewed prior imaging. Advised pt size of stones are passable if they were to move into the ureter. UA today negative for blood and infection. Denies gross hematuria and any stone episodes since last encounter. Pt wishes to continue to monitor stones with imaging. -Increase water intake -F/u in 6 mos w/ KUB and JOHNNY Follow-up With When Contact Information ERNESTINE Hennessy APRN, Jeanie Crowder, FAM, URL Additional Instructions: 6 mos w/ KUB and JOHNNY Patient Education Dietary Guidelines to Help Prevent Kidney Stones ITiff, personally scribed for ERNESTINE Anderson on 12/20/2023 09:22:17. . Documentation recorded by the clementina Zepeda accurately reflects the services(s) I performed and decisions made by me. Authenticated by Jeanie Hennessy APRN, FNP-C on 12/20/2023 09:25:07. Portions of this record may have been created with voice recognition artificial intelligence software, specifically [employer], [employer] and or [employer]. Substitutions may have occurred due to the inherent limitations of voice recognition and artificial intelligence software. Problem List/Past Medical History Ongoing Arthritis Aspirin long-term use BMI 33.0-33.9,adult CAD (coronary artery disease) Heart attack Heart disease High cholesterol History of osteoarthritis HTN (hypertension) Hydronephrosis Kidney stone Microhematuria Ureteral stone Vertigo Historical No qualifying data [...] Substance Abuse - Denies Substance Abuse, 06/29/2015 Tobacco - Denies Tobacco Use, 06/29/2015 Never (less than 100 in lifetime) Tobacco Use:. Never Smokeless Tobacco Use:. Household tobacco concerns: No., 12/20/2023 Immunizations Vaccine Date Status Commen (more content not included)... Normal [facility] Comment on above: Result Comment: Elec tronically Signed By: ERNESTINE Hennessy APRN, [facility] X\.br\Date and Time Signed: 12/20/23 09:25 EDT\.br\Electronically Co-Signed By: Tiff Zepeda\.br\Date and Time Co-Signed: 12/20/23 09:22 EDT Reminderson 10-23-2023 Reminders Reminders From: Mallika Betancourt To: EU - Administrative; Sent: 09/05/2023 09:34:22 EDT Show up: 10/09/2023 09:34:00 EDT Subject: Nov 2023 appt with AO Due Date/Time: 12/15/2023 09:34:00 EDT Reminder/Recall Patient needs a 4 mos f/up - due Nov 2023- with [facility]. Reyes needs done prior- make sure patient received the information/kit and did this. PT SCHEDULED FOR 12/20/23 AT 9:00 WITH AO IN [facility] US CAROTID ARTERY DUPLE X BILATERALon 10-23-2023 [facility] US CAROTID ARTERY DUPLEX BILATERAL [address], [address], [place] [address] Vascular Lab Report [facility] US CAROTID ARTERY DUPLEX BILATERAL Patient Name: DELFINA CHURCH Reading Physician: [id number] Kamari Hurtado MD, [facility] Study Date: 10/23/2023 Ordering Provider: [id number] RIKY TITUS MRN/PID: [id number] Fellow: Technologist: Ml Lester [facility], [facility] Date of /Age: 2 1945 / 78 years Technologist 2: Gender: F Admission Status: Outpatient Location Performed: [facility] Diagnosis/ICD: Syncope and collapse-R55 Indication: Fatigue, Angina, CAD, Shortness of Breath, Dizziness, HTN, Hyperlipidemia, PTCA CPT Codes: 01286 Cerebrovascular Carotid Duplex scan complete CONCLUSIONS: Right Carotid: Findings are consistent with less than 50% stenosis of the right proximal internal carotid artery. Laminar flow seen by color Doppler. Right external carotid artery appears patent with no evidence of stenosis. No evidence of hemodynamically significant stenosis of the right common carotid artery. The right vertebral artery is patent with antegrade flow. Left Carotid: Findings are consistent with less than 50% stenosis of the left proximal internal carotid artery. Laminar flow seen by color Doppler. Left external carotid artery appears patent with no evidence of stenosis. No evidence of hemodynamically significant stenosis of the left common carotid artery. The left vertebral artery is patent with antegrade flow. Imaging & Doppler Findings: Right Plaque Morph: No plaque identified in the right carotid artery. Left Plaque Morph: No plaque identified in the left carotid artery. Right Left PSV EDV PSV EDV 65 cm/s 12 cm/s CCA P 55 cm/s 12 cm/s 45 cm/s 10 cm/s CCA M 55 cm/s 11 cm/s 50 cm/s 10 cm/s CCA D 50 cm/s 12 cm/s 59 cm/s 15 cm/s ICA P 70 cm/s 20 cm/s 60 cm/s 14 cm/s ICA M 60 cm/s 22 cm/s 62 cm/s 20 cm/s ICA D 66 cm/s 27 cm/s 69 cm/s ECA 76 cm/s 44 cm/s Vertebral 62 cm/s Right Left ICA/CCA Ratio 1.2 1.4 [id number] Kamari Hurtado MD, FACC Final [facility] CT angio chest PE protocolon 09-26-2023 CT angio chest PE protocol [facility] [address] CT Scan Report Signed Patient: Delfina Church MR#: [id number] : 1945 Acct:[id number] Age/Sex: 78 / F ADM Date: 09/26/23 Loc: CT Room: Type: [facility] Attending Dr: Sandrita Titus DO Copies to: Sandrita Titus DO Ordering Provider: Sandrita Titus DO Date of Service: 09/26/23 CT/CT [...] Niko Dickson M.D.09/26/2023 3:12 PM Dictation Location: [place] [address] Transcribed By: [facility] 09/26/23 1512 Dictated By: Niko Dickson DO 09/26/23 1507 Signed By: 09/26/23 1512 Normal [facility] Activated partial thrombopla stin time (aPTT) in platelet poor plasma by coagulation aOrdered By: Sandrita Titus on 09-21-2023 aPTT Coag (PPP) [Time] 27.4 s 25.1-36.5 [facility] Comment on above: A hematocrit value g reater than 55% may lead to inaccurate results in coagulation testing. Patients having hematocrit values >55% require a special collection tube for coagulation studies. Please contact the laboratory at [phone] for redraw instructions. Automated basophil %Ordered By: Sandrita Titus on 09-21-2023 Basophils/100 WBC (Bld) 0.8 % Normal . [facility] Comment on above: Performed By: #### L IPID, CREAT, BUN, CBC, LYTES, PP #### [facility] [address] [place] [address] Automated basophil countOrde red By: Sandrita Titus on 09-21-2023 Basophils (Bld) [#/Vol] 0.1 10*3/uL Normal 0.0-0.2 [facility] Comment on above: Result Comment: PERF ORMED BY: [place] [address] PATHOLOGIST SHELF FILLER GRETEL CALIXTO M.D. Performed By: #### L IPID, CREAT, BUN, CBC, LYTES, PP #### [facility] [address] [place] [address] Automated blood monocyte cou ntOrdered By: Sandrita Titus on 09-21-2023 Monocytes (Bld) [#/Vol] 0.6 10*3/uL Normal 0.0-0.8 [facility] Comment on above: Performed By: #### L IPID, CREAT, BUN, CBC, LYTES, PP #### [address] Automated eosinophil %Ordere d By: Sandrita Titus on 09-21-2023 Eosinophils/100 WBC (Bld) 2.0 % Normal . [facility] Comment on above: Performed By: #### L IPID, CREAT, BUN, CBC, LYTES, PP #### [address] Automated eosinophil countOr dered By: Sandrita Titus on 09-21-2023 Eosinophils (Bld) [#/Vol] 0.1 10*3/uL Normal 0.0-0.45 [facility] Comment on above: Performed By: #### L IPID, CREAT, BUN, CBC, LYTES, PP #### [address] Automated monocyte %Ordered By: Sandrita Titus on 09-21-2023 Monocytes/100 WBC (Bld) 8.6 % Normal . [facility] Comment on above: Performed By: #### L IPID, CREAT, BUN, CBC, LYTES, PP #### [address] Automated neutrophil %Ordere d By: Sandrita Titus on 09-21-2023 Neutrophils/100 WBC (Bld) 66.4 % Normal . [facility] Comment on above: Performed By: #### L IPID, CREAT, BUN, CBC, LYTES, PP #### [address] Carbon dioxide, total [Moles /volume] in Serum or PlasmaOrdered By: Sandrita Titus on 09-21-2023 CO2 [Moles/Vol] 29.1 mmol/L Normal 21.0-31.0 [facility] Comment on above: Performed By: #### L IPID, CREAT, BUN, CBC, LYTES, PP #### [facility] [address] [place] [address] [place] Chloride [Moles/volume] in S nohemy or PlasmaOrdered By: Sandrita Titus on 09-21-2023 Chloride [Moles/Vol] 108 mmol/L High 98-107 [facility] Comment on above: Performed By: #### L IPID, CREAT, BUN, CBC, LYTES, PP #### [facility] [address] [place] [address] [place] Cholesterol [Mass/volume] in Serum or PlasmaOrdered By: Sandrita Titus on 09-21-2023 Cholesterol [Mass/Vol] 133 mg/dL Low 140-200 [facility] Comment on above: Chol less than 200 m g/dl low riskChol 201-239 mg/dl borderline riskChol 240 mg/dl and greater high risk Result Comment: Chol less than 200 mg/dl low risk Chol 201-239 mg/dl borderline risk Chol 240 mg/dl and greater high risk Performed By: #### L IPID, CREAT, BUN, CBC, LYTES, PP #### [facility] [address] Cholesterol in LDL Calc [Mas s/Vol]Ordered By: Sandrita Titus on 09-21-2023 Cholesterol in LDL [Mass/Vol] 68 mg/dL 0-100 [facility] Comment on above: LDL ATP III CLASSIFI CATIONLDL less than 100 mg/dL OptimalLDL 100-129 mg/dL Near or above optimalLDL 130-159 mg/dL Borderline highLDL 160-189 mg/dL HighLDL greater than 189 mg/dL Very high Cholesterol in VLDL Calc [Ma ss/Vol]Ordered By: Sandrita Titus on 09-21-2023 Cholesterol in VLDL [Mass/Vol] 28 mg/dL [facility] Coagulation Profileon 2023 aPTT Coag (Bld) [Time] 27.4 s Normal 25.1-36.5 [facility] Comment on above: Result Comment: A he matocrit value greater than 55% may lead to inaccurate results in coagulation testing. Patients having hematocrit values >55% require a special collection tube for coagulation studies. Please contact the laboratory at [phone] for redraw instructions. PERFORMED BY: [place] [address] PATHOLOGIST SHELF FILLER GRETEL CALIXTO M.D. Performed By: #### L IPID, CREAT, BUN, CBC, LYTES, PP #### [address] Complete Blood Count Auto Di ffon 09-21-2023 Mean Corpuscular HGB Conc 33.1 g/dL Normal 32.0-35.0 [facility] Comment on above: Performed By: #### L IPID, CREAT, BUN, CBC, LYTES, PP #### [address] NRBC% 0.0 /100{WBC} Normal 0-0.5 [facility] Comment on above: Performed By: #### L IPID, CREAT, BUN, CBC, LYTES, PP #### [address] Creatinineon 09-21-2023 Creatinine Clr Calc Pharmacy 64.00 Normal [facility] Comment on above: Performed By: #### L IPID, CREAT, BUN, CBC, LYTES, PP #### [address] GFR/1.73 sq M.predicted MDRD (S/P/Bld) [Vol rate/Area] mL/min/{1.73_m2} Normal [facility] Comment on above: Performed By: #### L IPID, CREAT, BUN, CBC, LYTES, PP #### [address] Creatinine [Mass/volume] in Serum or PlasmaOrdered By: Sandrita Titus on 09-21-2023 Creatinine [Mass/Vol] 0.85 mg/dL Normal 0.60-1.20 [facility] Comment on above: Performed By: #### L IPID, CREAT, BUN, CBC, LYTES, PP #### [facility] [address] ECG 12 lead ECGon 09-21-2023 ECG 12 lead ECG [facility] Main [place] [address] [place] [address] Electrocardiograph Report Signed Patient: Delfina Church MR#: [id number] : 1945 Acct:[id number] Age/Sex: 78 / F ADM Date: 09/21/23 Loc: Room: Type: [facility] Attending Dr: Sandrita Titus DO Ordering Provider: Sandrita Titus DO Date of Service: 09/21/2303/04/736 ECG/ECG 12 lead ECG: [facility] Copies to: Test Reason : Blood [...] change was found Confirmed by CAROLYN LEONE [facility], KAMARI ([id number]) on 09/21/2023 4:25:26 PM Referred By: Electronically Signed By: KAMARI HURTADO MD [facility] Transcribed By: MUS Signed By Kamari Hurtado MD, [facility] 09/21/23 1625 Normal [facility] Erythrocyte distribution wid th [Ratio] by Automated countOrdered By: Sandrita Titus on 09-21-2023 Erythrocyte distribution width (RBC) [Ratio] 13.6 % Normal 11.9-15.3 [facility] Comment on above: Performed By: #### L IPID, CREAT, BUN, CBC, LYTES, PP #### [facility] [address] [place] [address] Erythrocytes [#/volume] in B lood by Automated countOrdered By: Sandrita Titus on 09-21-2023 RBC (Bld) [#/Vol] 4.29 10*6/uL Normal 3.60-5.00 [facility] Comment on above: Performed By: #### L IPID, CREAT, BUN, CBC, LYTES, PP #### [facility] [address] Hematocrit [Volume Fraction] of Blood by Automated countOrdered By: Sandrita Titus on 09-21-2023 Hematocrit (Bld) [Volume fraction] 40.9 % Normal 34.0-46.4 [facility] Comment on above: Performed By: #### L IPID, CREAT, BUN, CBC, LYTES, PP #### [address] Hemoglobin [Mass/volume] in BloodOrdered By: Sandrita Titus on 09-21-2023 Hemoglobin (Bld) [Mass/Vol] 13.5 g/dL Normal 11.8-15.4 [facility] Comment on above: Performed By: #### L IPID, CREAT, BUN, CBC, LYTES, PP #### [address] INR in Platelet poor plasma by Coagulation assayOrdered By: Sandrita Titus on 09-21-2023 INR Coag (PPP) [Relative time] 0.9 {INR} Normal [facility] Comment on above: INR Therapeutic Rang e [...] IPID, CREAT, BUN, CBC, LYTES, PP #### [place] [address] [place] Leukocytes [#/volume] correc sheryl for nucleated erythrocytes in Blood by Automated counOrdered By: Sandrita Titus on 09-21-2023 WBC corrected for nucl RBC Auto (Bld) [#/Vol] 6.7 10*3/uL 3.8-11.6 [facility] Leukocytes [#/volume] in Blo od by Automated countOrdered By: Sandrita Titus on 09-21-2023 WBC (Bld) [#/Vol] 6.7 10*3/uL Normal 3.8-11.6 [facility] Comment on above: Performed By: #### L IPID, CREAT, BUN, CBC, LYTES, PP #### [facility] [address] Lipid Panelon 09-21-2023 LDL Cholesterol,Calculated 68 mg/dL Normal 0-100 [facility] Comment on above: Result Comment: LDL ATP III CLASSIFICATION LDL less than 100 mg/dL Optimal LDL 100-129 mg/dL Near or above optimal LDL 130-159 mg/dL Borderline high LDL 160-189 mg/dL High LDL greater than 189 mg/dL Very high Performed By: #### L IPID, CREAT, BUN, CBC, LYTES, PP #### [facility] [address] Triglyceride w/Reflex 140 mg/dL Normal 0-149 [facility] Comment on above: Result Comment: TRIG ATP III CLASSIFICATION TRIG less than 150 mg/dL Normal TRIG 150-199 mg/dL Borderline high TRIG 200-500 mg/dL High TRIG greater than 500 mg/dL Very high Standard traceable to the Center for Disease Conrtrol and Prevention (CDC) test method. Performed By: #### L IPID, CREAT, BUN, CBC, LYTES, PP #### [facility] [address] VLDL CHOLESTEROL 28 mg/dL Normal [facility] Comment on above: Performed By: #### L IPID, CREAT, BUN, CBC, LYTES, PP #### [facility] [address] Lymphocytes [#/volume] in Bl ood by Automated countOrdered By: Sandrita Titus on 09-21-2023 Lymphocytes (Bld) [#/Vol] 1.5 10*3/uL Normal 1.00-4.8 [facility] Comment on above: Performed By: #### L IPID, CREAT, BUN, CBC, LYTES, PP #### [facility] [address] Lymphocytes/100 leukocytes i n Blood by Automated countOrdered By: Sandrita Titus on 09-21-2023 Lymphocytes/100 WBC (Bld) 22.2 % Normal . [facility] Comment on above: Performed By: #### L IPID, CREAT, BUN, CBC, LYTES, PP #### [facility] [address] MCH [Entitic mass] by Automa sheryl countOrdered By: Sandrita Titus on 09-21-2023 MCH (RBC) [Entitic mass] 31.6 pg Normal 24.7-34.3 [facility] Comment on above: Performed By: #### L IPID, CREAT, BUN, CBC, LYTES, PP #### [facility] [address] [place] [address] MCHC Auto (RBC) [Mass/Vol]Or dered By: Sandrita Titus on 09-21-2023 MCHC (RBC) [Mass/Vol] 33.1 g/dL 32.0-35.0 [facility] MCV [Entitic volume] by Auto mated countOrdered By: Sandrita Titus on 09-21-2023 MCV (RBC) [Entitic vol] 95.5 fL Normal 80-100 [facility] Comment on above: Performed By: #### L IPID, CREAT, BUN, CBC, LYTES, PP #### [facility] [address] [place] [address] Neutrophils [#/volume] in Bl ood by Automated countOrdered By: Sandrita Titus on 09-21-2023 Neutrophils (Bld) [#/Vol] 4.4 10*3/uL Normal 1.8-7.7 [facility] Comment on above: Performed By: #### L IPID, CREAT, BUN, CBC, LYTES, PP #### [facility] [address] No Panel InformationOrdered By: Sandrita Titus on 09-21-2023 Estimated GFR (CKD-EPI) > 60.0 mL/Min [facility] Creatinine Clearance (Chem 64.00 [facility] Nucleated erythrocytes [Pres ence] in Blood by Automated countOrdered By: Sandrita Titus on 09-21-2023 Nucleated RBC Auto Ql (Bld) 0.0 /100{WBC} 0-0.5 [facility] Platelet mean volume [Entiti c volume] in Blood by Automated countOrdered By: Sandrita Titus on 09-21-2023 Platelet mean volume (Bld) [Entitic vol] 8.3 fL Normal 6.3-10.7 [facility] Comment on above: Performed By: #### L IPID, CREAT, BUN, CBC, LYTES, PP #### [facility] [address] [place] [address] Platelets [#/volume] in Bloo d by Automated countOrdered By: Sandrita Titus on 09-21-2023 Platelets (Bld) [#/Vol] 187 10*3/uL Normal 150-450 [facility] Comment on above: Performed By: #### L IPID, CREAT, BUN, CBC, LYTES, PP #### [address] Potassium [Moles/volume] in Serum or PlasmaOrdered By: Sandrita Titus on 09-21-2023 Potassium [Moles/Vol] 4.2 mmol/L Normal 3.5-5.1 [facility] Comment on above: Performed By: #### L IPID, CREAT, BUN, CBC, LYTES, PP #### [facility] [address] [place] [address] Prothrombin time (PT)Ordered By: Sandrita Titus on 09-21-2023 PT Coag (PPP) [Time] 10.4 s Normal 9.0-12.9 [facility] Comment on above: A hematocrit value g reater than 55% may lead to inaccurate results in coagulation testing. Patients having hematocrit values >55% require a special collection tube for coagulation studies. Please contact the laboratory at [phone] for redraw instructions. Result Comment: A he matocrit value greater than 55% may lead to inaccurate results in coagulation testing. Patients having hematocrit values >55% require a special collection tube for coagulation studies. Please contact the laboratory at [phone] for redraw instructions. Performed By: #### L IPID, CREAT, BUN, CBC, LYTES, PP #### [address] Serum or plasma anion gap de terminationOrdered By: Sandrita Titus on 09-21-2023 Anion gap [Moles/Vol] 10.1 mmol/L Normal 6.0-15.0 [facility] Comment on above: Performed By: #### L IPID, CREAT, BUN, CBC, LYTES, PP #### [address] Serum or plasma high density lipoprotein (HDL) cholesterol measurementOrdered By: Sandrita Titus on 09-21-2023 Cholesterol in HDL [Mass/Vol] 37 mg/dL Normal 23-92 [facility] Comment on above: HDL CHOL ATP-III CLA SSIFICATION Cardiovascular RiskHDL > or equal to 60 mg/dL LOWHDL < 40 mg/dL HIGH Result Comment: HDL CHOL ATP-III CLASSIFICATION Cardiovascular Risk HDL > or equal to 60 mg/dL LOW HDL < 40 mg/dL HIGH Performed By: #### L IPID, CREAT, BUN, CBC, LYTES, PP #### [address] Serum or plasma total choles terol/high density lipoprotein (HDL) cholesterol mass ratOrdered By: Sandrita Titus on 09-21-2023 Cholesterol.total/Chol esterol in HDL [Mass ratio] 3.6 {ratio} Normal <5.0 [facility] Comment on above: Result Comment: PERF ORMED BY: [place] [address] PATHOLOGIST SHELF FILLER GRETEL CALIXTO M.D. Performed By: #### L IPID, CREAT, BUN, CBC, LYTES, PP #### [facility] [address] Sodium [Moles/volume] in Ser um or PlasmaOrdered By: Sandrita Titus on 09-21-2023 Sodium [Moles/Vol] 143 mmol/L Normal 136-145 [facility] Comment on above: Performed By: #### L IPID, CREAT, BUN, CBC, LYTES, PP #### [facility] [address] Triglyceride [Mass/volume] i n Serum or PlasmaOrdered By: Sandrita Titus on 09-21-2023 Triglyceride [Mass/Vol] 140 mg/dL 0-149 [facility] Comment on above: TRIG ATP III CLASSIF ICATIONTRIG less than 150 mg/dL NormalTRIG 150-199 mg/dL Borderline highTRIG 200-500 mg/dL High TRIG greater than 500 mg/dL Very highStandard traceable to the Center for Disease Conrtrol and Prevention (CDC) test method. Urea nitrogen [Mass/volume] in Serum or PlasmaOrdered By: Sandrita Titus on 09-21-2023 Urea nitrogen [Mass/Vol] 19 mg/dL Normal 7-25 [facility] Comment on above: Performed By: #### L IPID, CREAT, BUN, CBC, LYTES, PP #### [address] Patient Correspondenceon Patient Correspondence [phone] [id number] Normal [facility] Calculus Analysison 07-26-19 24 Calcium oxalate dihydrate Infrared spectroscopy (Stone) [Mass fraction] 50 % Invalid Interpretation Code [facility] Comment on above: Performed By: #### 1 [id number] #### [facility] [address] [place] [address] Calcium oxalate monohydrate (Stone) [Mass fraction] 30 % Invalid Interpretation Code [facility] Comment on above: Performed By: #### 1 [id number] #### [facility] [address] [place] [address] Calculus analysis [Interp] Comment Invalid Interpretation Code [facility] Comment on above: Result Comment: Calc ium phosphate (hydroxyl form) includes hydroxyapatite, amorphous calcium phosphate, and whitlockite. Hydroxyapatite is the most common of the calcium phosphate salts found in human kidney stones. Performed By: #### 1 [id number] #### [facility] [address] [place] [address] Color (Stone) Alatorre Invalid Interpretation Code [facility] Comment on above: Performed By: #### 1 [id number] #### [facility] [address] [place] [address] Composition Comment Invalid Interpretation Code [facility] Comment on above: Result Comment: Perc entage (Represents the % composition) Performed By: #### 1 [id number] #### [facility] [address] [place] [id number] Disclaimer: Comment Invalid Interpretation Code [facility] Comment on above: Result Comment: This test was developed and its performance characteristics determined by [employer]. It has not been cleared or approved by the Food and Drug Administration. Performed at: [address] [id number] PhD Angelica Boyd Performed By: #### 1 [id number] #### [facility] [address] [place] [id number] Hydroxyapatite: 20 % Invalid Interpretation Code [facility] Comment on above: Performed By: #### 1 [id number] #### [facility] [address] [place] [address] Laboratory comment Maynor (Report) Comment Invalid Interpretation Code [facility] Comment on above: Result Comment: Phys ician questions regarding Calculi Analysis contact [facility] at: [phone]. Performed By: #### 1 [id number] #### [facility] [address] [place] [address] Please Note: Comment Invalid Interpretation Code [facility] Comment on above: Result Comment: Calc evonne report will follow via computer, mail or hat model delivery. Performed By: #### 1 [id number] #### [facility] [address] [place] [address] Size (Stone) [Entitic vol] 6x3 Invalid Interpretation Code [facility] Comment on above: Result Comment: Sing le piece received. Performed By: #### 1 [id number] #### [facility] [address] [place] [address] Specimen source subject Nom Comment Invalid Interpretation Code [facility] Comment on above: Result Comment: Not provided Performed By: #### 1 [id number] #### [facility] [address] [place] [address] Stone Photo Comment Invalid Interpretation Code [facility] Comment on above: Result Comment: Phot ograph will follow under a separate cover Performed By: #### 1 [id number] #### [facility] [address] [place] [address] Weight (Stone) 19 mg Invalid Interpretation Code [facility] Comment on above: Performed By: #### 1 [id number] #### [facility] [address] [place] [address] Screenson 07-20-2023 Screens [id number] Normal [facility] Ambulatory Visit Summaryon 0 07-19-2023 Ambulatory Visit [...] you for choosing us for your care. [facility] Formson 07-19-2023 Forms [id number] [facility] Patient Educationon 07-19-19 24 Patient Education Nephrology [...] ? 8 oz (237 mL) of milk, ngeeeyt-cjxqvkypjiuz-oycph milk, and calcium-fortifiedfruit juice. Calcium-fortified means that [...] Spinach (cooked), rhubarb, beets, sweet potatoes, and Chinese chard. ? Peanuts. ? Potato chips, bruneian fries, and baked potatoes with skin on. ? Nuts and nut products. ? Chocolate. ? If you regularly take a diuretic medicine, make sure to eat at least 1 or 2 servings of fruits or vegetables that are high in potassium each day. These include: ? Avocado. ? Banana. ? [place], prune, carrot, or tomato juice. ? Baked [...] fish oil, or vitamin B6. ? Take ljdw-nsz-ftmeuyo and prescription medicines only as told by your health care provider. These include supplements. What foods sh (more content not included)... Normal [facility] Urology Office/Clinic Noteon 07-19-2023 Urology Office/Clinic Note Chief Complaint ER follow up due to kidney stones HPI Staff Pt was seen at [facility] due to kidney stones CT SCAN 06/02/23. [...] with voice recognition artificial intelligence software, specifically [employer], [employer] and or [employer]. Substitutions may have occurred due to the [...] cysto/ R stent removal done 01/03/21. [1] [facility] ER 06/02/2023 - left flank pain. CT [...] Patient did previously complete metabolic workup through [facility]. However, unable to find urine results. Lab [...] Urnls Dip Stick Auto w/o Microscopy POC 49700 2. Microhematuria (R31.29: Other microscopic hematuria) UA today with trace leukocytes, no signs of blood at this time. Patient denies recent hematuria or urinary infection. Patient knows to call contact office with any episode of gross hematuria. Ordered: Calculi Analysis Urinary Urnls Dip Stick Auto w/o Microscopy POC 31324 Follow-up With When Contact Information Minoo IVORY, OSITOC, Jeanie X, FAM, URL Additional Instructions: 4 mos w/ litholink Patient Education Hematuria, Adult Dietary Guidelines to Help Prevent Kidney Stones Kidney Stones, Hxgz-wg-Ahno Problem List/Past Medical History Ongoing Arthritis Aspirin [...] 06/29/2015 T (more content not included)... Normal [facility] Comment on above: Result Comment: Elec tronically [...] BY: Jorje Tilley MD Normal Not Available Tobacco Screening.on 023 Adult depression screening assessment [facility] [employer] DO Work Phone: Fall risk assessment a) No falls within the last year [facility] [employer] 250 DO Work Phone: Tobacco use status CPHS b) No [facility]uma 250 DO Work Phone: US DINO DOP LEG RTon 12-19-19 22 US DINO DOP LEG RT ULTRASOUND OF THE [facility] LOWER EXTREMITY. HISTORY: Pain COMPARISON: 12/14/2021 TECHNIQUE: [...] YVAN FLORES Date: 2021-12-18 14:37 Normal [facility] INSULINon 12-15-2021 Insulin 34.1 uIU/mL Critically high 2.6-24.9 [facility] Comment on above: Performed By: #### I NSULIN ####[facility] [address] [place] [address]Dr. Luther Clark CBC AUTO DIFFon 12-14-2021 BASO # 0.0 103/ul Normal 0.0-0.1 [facility] Comment on above: Performed By: #### C BC #### [facility] [address] [address] [address] Luther Clark Basophils/100 WBC (Bld) 0.6 % Normal 0.2-2.0 [facility] Comment on above: Performed By: #### C BC #### [facility] [address] [address] [address] Luther Clark EO # 0.1 103/ul Normal 0.0-0.7 [facility] Comment on above: Performed By: #### C BC #### [facility] [address] [address] [address] Luther Clark Eosinophils/100 WBC (Bld) 1.3 % Normal 0.9-7.0 [facility] Comment on above: Performed By: #### C BC #### [facility] [address] [address] [address] Luther Clark Erythrocyte distribution width (RBC) [Ratio] 13.1 % Normal 11.0-15.0 [facility] Comment on above: Performed By: #### C BC #### [facility] [address] [place] [address] Dr. Luther Clark Hematocrit (Bld) [Volume fraction] 44.0 % Normal 36.0-48.0 [facility] Comment on above: Performed By: #### C BC #### [facility] [address] [place] [address] Dr. Luther Clark Hemoglobin (Bld) [Mass/Vol] 13.8 g/dL Normal 12.0-16.0 [facility] Comment on above: Performed By: #### C BC #### [facility] [address] [place] [address] Dr. Luther Clark IG # 0.02 10e3/ul Normal 0.00-0.03 [facility] Comment on above: Performed By: #### C BC #### [facility] [address] [place] [address] Dr. Luther Clark IG % 0.3 % Normal 0.0-0.5 [facility] Comment on above: Performed By: #### C BC #### [facility] [address] [place] [address] Dr. Luther Clark LYMPH # 2.2 103/ul Normal 1.2-3.8 [facility] Comment on above: Performed By: #### C BC #### [facility] [address] [place] [address] Dr. Luther Clark Lymphocytes/100 WBC (Bld) 30.9 % Normal 20.5-60.0 [facility] Comment on above: Performed By: #### C BC #### [facility] [address] [place] [address] Dr. Luther Clark MANUAL DIFF REQ NO Normal [facility] Comment on above: Performed By: #### C BC #### [facility] [address] [place] [address] Dr. Luther Clark MCH (RBC) [Entitic mass] 30.7 pg Normal 26.7-34.0 [facility] Comment on above: Performed By: #### C BC #### [facility] [address] [place] [address] Dr. Luther Clark MCHC (RBC) [Mass/Vol] 31.4 g/dL Normal 29.9-35.2 [facility] Comment on above: Performed By: #### C BC #### [facility] [address] [place] [address] Dr. Luther Clark MCV (RBC) [Entitic vol] 98.0 fL Normal 81.0-99.0 [facility] Comment on above: Performed By: #### C BC #### [facility] [address] [place] [address] Dr. Luther Clark MONO # 0.6 103/ul Normal 0.3-0.8 [facility] Comment on above: Performed By: #### C BC #### [facility] [address] [place] [address] Dr. Luther Clark Monocytes/100 WBC (Bld) 8.5 % Normal 1.7-12.0 [facility] Comment on above: Performed By: #### C BC #### [facility] [address] [place] [address] Dr. Luther Clark NEUT # 4.1 103/ul Normal 1.4-6.5 [facility] Comment on above: Performed By: #### C BC #### [facility] [address] [place] [address] Dr. Luther Clark Neutrophils/100 WBC (Bld) 58.4 % Normal 43.0-75.0 [facility] Comment on above: Performed By: #### C BC #### [facility] [address] [place] [address] Dr. Luther Clark Platelet mean volume (Bld) [Entitic vol] 9.8 fL Normal 9.5-13.5 [facility] Comment on above: Performed By: #### C BC #### [facility] [address] [place] [address] Dr. Luther Clark PLT 230 103/ul Normal 150-450 [facility] Comment on above: Performed By: #### C BC #### [facility] [address] [address] [address] Luther Clark RBC 4.49 106/ul Normal 4.20-5.40 [facility] Comment on above: Performed By: #### C BC #### [facility] [address] [address] [address] Luther Clark WBC 7.1 103/ul Normal 4.0-11.0 [facility] Comment on above: Performed By: #### C BC #### [facility] [address] [address] [address] Luther Clark FREE THYROXINE INDEX T7on FTI 2.33 Normal 1.30-4.50 [facility] Comment on above: Performed By: #### T 7, TSH, CMP, LIPID ####[facility] [address] [address]Dr. Luther Clark T3U 31.0 % Normal 30.0-39.0 [facility] Comment on above: Performed By: #### T 7, TSH, CMP, LIPID ####[facility] [address] [place] [address]Dr. Luther Clark T4 [Mass/Vol] 7.50 ug/dL Normal 4.80-13.90 [facility] Comment on above: Performed By: #### T 7, TSH, CMP, LIPID ####[facility] [address] [place] [address]Dr. Luther Clark GLYCOHEMOGLOBIN A1Con 2021 ADA RECOMMENDATION SEE BELOW Normal [facility] Comment on above: Result Comment: ADA RECOMMENDED LIMIT 4.0 - 6.0 ADA THERAPEUTIC TARGET < 7.0 ACTION SUGGESTED > 7.0 Performed By: #### A 1C #### [facility] [address] [address] [address] Luther Clark Glucose [Mass/Vol] 126 mg/dL Normal [facility] Comment on above: Performed By: #### A 1C #### [facility] [address] [place] [address] Dr. Luther Clark HbA1c (Bld) [Mass fraction] 6.0 % Normal 4.5-6.2 [facility] Comment on above: Performed By: #### A 1C #### [facility] [address] [address] [address] Luther Clark IRONon 12-14-2021 Iron [Mass/Vol] 60.0 ug/dL Normal 50.0-170.0 [facility] Comment on above: Performed By: #### V ITAD, IRON #### [facility] [address] [address] [address] Luther Clark LIPID PROFILEon 12-14-2021 CHOL-HDL RATIO NORM SEE BELOW Normal [facility] Comment on above: Result Comment: 3.3 - 4.4 LOW RISK 4.4 - 7.1 AVERAGE RISK 7.1 - 11.0 MODERATE RISK >11.0 HIGH RISK Performed By: #### T 7, TSH, CMP, LIPID ####[facility] [address] [place] [id number]. Luther Clark Cholesterol [Mass/Vol] 141 mg/dL Normal <=200 [facility] Comment on above: Performed By: #### T 7, TSH, CMP, LIPID ####[facility] [address] [place] [address]11DrLuther Clark Cholesterol in HDL [Mass/Vol] 49 mg/dL Normal 40-60 [facility] Comment on above: Performed By: #### T 7, TSH, CMP, LIPID ####[facility] [address] [place] [address]Dr. Luther Clark Cholesterol in LDL [Mass/Vol] 56.4 mg/dL Normal [facility] Comment on above: Performed By: #### T 7, TSH, CMP, LIPID ####[facility] [address] [place] [id number]. Luther Clark Cholesterol.total/Chol esterol in HDL [Mass ratio] 2.9 {ratio} Normal [facility] Comment on above: Performed By: #### T 7, TSH, CMP, LIPID ####[facility] [address] [place] [address]Dr. Luther Clark HDL NORMAL > or = 60 mg/dl - LO W CARDIOVASCULAR RISK <40 mg/dl - HIGH CARDIOVASCULAR RISK Normal [facility] Comment on above: Performed By: #### T 7, TSH, CMP, LIPID ####[facility] [address] [place] [address]Dr. Luther Clark LDL CALC NORMAL SEE BELOW Normal [facility] Comment on above: Result Comment: <100 mg/dl OPTIMAL 100 - 129 mg/dl NEAR OR ABOVE OPTIMAL 130 - 159 mg/dl BORDERLINE HIGH 160 - 189 mg/dl HIGH >190 mg/dl VERY HIGH Performed By: #### T 7, TSH, CMP, LIPID ####[facility] [address] [place] [address]Dr. Luther Clark Triglyceride [Mass/Vol] 178 mg/dL Critically high <=150 [facility] Comment on above: Performed By: #### T 7, TSH, CMP, LIPID ####[facility] [address] [place] [address]Dr. Luther Clark VLDL CALC 35.6 mg/dL Normal [facility] Comment on above: Performed By: #### T 7, TSH, CMP, LIPID ####[facility] [address] [place] [address]Dr. Luther Clark PROF 14(COMP METB)on 022 Albumin [Mass/Vol] 3.8 g/dL Normal 3.4-5.0 [facility] Comment on above: Performed By: #### T 7, TSH, CMP, LIPID ####[facility] [address] [place] [address]Dr. Luther Clark Albumin/Globulin [Mass ratio] 1.1 {ratio} Normal [facility] Comment on above: Performed By: #### T 7, TSH, CMP, LIPID ####[facility] [address] [place] [address]Dr. Luther Clark ALP [Catalytic activity/Vol] 117 U/L Critically high 46-116 [facility] Comment on above: Performed By: #### T 7, TSH, CMP, LIPID ####[facility] [address] [place] [id number]. Luther Clark ALT [Catalytic activity/Vol] 33 U/L Normal 14-59 [facility] Comment on above: Performed By: #### T 7, TSH, CMP, LIPID ####[facility] [address] [place] [address]Dr. Luther Clark Anion gap [Moles/Vol] 5.7 mmol/L Normal [facility] Comment on above: Performed By: #### T 7, TSH, CMP, LIPID ####[facility] [address] [place] [address]Dr. Luther Clark AST [Catalytic activity/Vol] 18 U/L Normal 15-37 [facility] Comment on above: Performed By: #### T 7, TSH, CMP, LIPID ####[facility] [address] [place] [address]Dr. Luther Clark Bilirubin [Mass/Vol] 1.8 mg/dL Critically high 0.2-1.0 [facility] Comment on above: Performed By: #### T 7, TSH, CMP, LIPID ####[facility] [address] [place] [address]Dr. Luther Clark Calcium [Mass/Vol] 10.5 mg/dL Critically high 8.5-10.1 [facility] Comment on above: Performed By: #### T 7, TSH, CMP, LIPID ####[facility] [address] [place] [address]Dr. Luther Clark Chloride [Moles/Vol] 105 mmol/L Normal 98-107 [facility] Comment on above: Performed By: #### T 7, TSH, CMP, LIPID ####[facility] [address] [place] [address]Dr. Luther Clark CO2 [Moles/Vol] 35.6 mmol/L Critically high 21.0-32.0 [facility] Comment on above: Performed By: #### T 7, TSH, CMP, LIPID ####[facility] [address] [place] [address]Dr. Luther Clark Creatinine [Mass/Vol] 0.90 mg/dL Normal 0.55-1.02 [facility] Comment on above: Performed By: #### T 7, TSH, CMP, LIPID ####[facility] [address] [place] [address]Dr. Luther Clark EGFR-AF FILIPINO >60 Normal >=60 [facility] Comment on above: Performed By: #### T 7, TSH, CMP, LIPID ####[facility] [address] [place] [address]Dr. Luther Clark EGFR-NON AF FILIPINO >60 Normal >=60 [facility] Comment on above: Performed By: #### T 7, TSH, CMP, LIPID ####[facility] [address] [place], [place] [address]Dr. Luther Clark Globulin (S) [Mass/Vol] 3.4 g/dL Normal [facility] Comment on above: Performed By: #### T 7, TSH, CMP, LIPID ####[facility] [address] [place], [place] [address]Dr. Luther Clark Glucose [Mass/Vol] 99 mg/dL Normal 74-106 [facility] Comment on above: Performed By: #### T 7, TSH, CMP, LIPID ####[facility] [address] [place], [place] [address]Dr. Luther Clark Potassium [Moles/Vol] 4.3 mmol/L Normal 3.5-5.1 [facility] Comment on above: Performed By: #### T 7, TSH, CMP, LIPID ####[facility] [address] [place], [place] [address]Dr. Luther Clark Protein [Mass/Vol] 7.2 g/dL Normal 6.4-8.2 [facility] Comment on above: Performed By: #### T 7, TSH, CMP, LIPID ####[facility] [address] [place], [place] [address]Dr. Luther Clark Sodium [Moles/Vol] 142 mmol/L Normal 136-145 [facility] Comment on above: Performed By: #### T 7, TSH, CMP, LIPID ####[facility] [address] [place] [id number]. Luther Clark Urea nitrogen [Mass/Vol] 17.0 mg/dL Normal 7.0-18.0 [facility] Comment on above: Performed By: #### T 7, TSH, CMP, LIPID ####[facility] [address] [place], [place] [address]Dq. Luther Clark Urea nitrogen/Creatinine [Mass ratio] 18.9 mg/mg Normal [facility] Comment on above: Performed By: #### T 7, TSH, CMP, LIPID ####[facility] [address] [place] [id number]. Luther Clark TSHon 12-14-2021 TSH 1.450 uIU/mL Normal 0.358-3.[address] [facility] Comment on above: Performed By: #### T 7, TSH, CMP, LIPID ####[facility] [address] [place] [id number]. Luther Clark US DINO DOP LEG RTon [...] by: RAMEZ CHAN Date: 2021-12-14 11:[address] [facility] VITAMIN D 25 OHon 12-14-2021 VIT D 25-OH 39.8 ng/mL Normal [facility] Comment on above: Performed By: #### V ITAD, IRON #### [facility] [address] [address] [address] Luther Clark VIT D RANGES SEE BELOW Normal [facility] Comment on above: Result Comment: <20 ng/mL Vit D deficient 20 - <30 ng/mL Vit D insufficient 30 - 100 ng/mL Vit D sufficient >100 ng/mL Potential Toxicity Performed By: #### V ITAD, IRON #### [facility] [address] [address] [address] Luther Clark Tobacco Screening.on 022 Adult depression screening assessment No [facility] [employer] DO Work Phone: Fall risk assessment b) One or more fall s in the last year [facility] [employer] 250 DO Work Phone: Tobacco use status CPHS b) No [facility] [employer] DO Work Phone: XR HUMERUS RT MIN [...] by: [place] Date: 2021-07-08 04:[address] [facility] Vital Signs Date Time Vital Sign Value Performing Clinician Facility 01-24-2024 13:45-0500 Body height 165.1 cm Dontrell Dolce DPM FACFAS Work Phone: [facility] 01-24-2024 13:45-0500 Body mass index (BMI) [Ratio] 33.28 kg/m2 Dontrell Dolce DPM FACFAS Work Phone: [facility] 01-24-2024 13:45-0500 Body weight 90.72 kg Dontrell Dolce DPM FACFAS Work Phone: [facility] 01-24-2024 13:45-0500 Diastolic blood pressure 74 mm[Hg] Dontrell Dolce DPM FACFAS Work Phone: [facility] 01-24-2024 13:45-0500 Heart rate 70 /min Dontrell Santos DPM FACFAS Work Phone: [facility] 01-24-2024 13:45-0500 Systolic blood pressure 132 mm[Hg] Dontrell Santos DPM FACFAS Work Phone: [facility] 12-25-2023 14:19-0400 Body height 165.1 cm Riky Titus DO Work Phone: [facility] 12-25-2023 14:19-0400 Body mass index (BMI) [Ratio] 34.81 kg/m2 Riky Titus DO Work Phone: [facility] 12-25-2023 14:19-0400 Body weight 94.89 kg Riky Titus DO Work Phone: [facility] 12-25-2023 14:19-0400 Diastolic blood pressure 88 mm[Hg] Riky Titus DO Work Phone: [facility] 12-25-2023 14:19-0400 Heart rate 60 /min Riky Titus DO Work Phone: [facility] 12-25-2023 14:19-0400 Systolic blood pressure 148 mm[Hg] Riky Titus DO Work Phone: [facility] 12-20-2023 08:55-0400 Blood Pressure Location Jeanie Orzech [facility] 12-20-2023 08:55-0400 Body temperature 98.6 [degF] Jeanie Orzech [facility] 12-20-2023 08:55-0400 Diastolic blood pressure 72 mm[Hg] Jeanie Orzech [facility] 12-20-2023 08:55-0400 Heart rate 68 /min Jeanie Orzech [facility] 12-20-2023 08:55-0400 Respiratory rate 16 /min Jeanie Orzech [facility] 12-20-2023 08:55-0400 Systolic blood pressure 132 mm[Hg] Jeanie Orzech [facility] 09-21-2023 12:19-0400 Diastolic blood pressure 77 mm[Hg] MD Yanna Meeks Work Phone: [facility] 09-21-2023 12:19-0400 Heart rate 65 /min MD Yanna Meeks Work Phone: [facility] 09-21-2023 12:19-0400 Respiratory rate 16 /min MD Yanna Meeks Work Phone: [facility] 09-21-2023 12:19-0400 SaO2% (BldA) [Mass fraction] 95 % MD Yanna Meeks Work Phone: [facility] 09-21-2023 12:19-0400 Systolic blood pressure 155 mm[Hg] MD Yanna Meeks Work Phone: [facility] 09-21-2023 08:20-0400 Body height 165.1 cm MD Yanna Meeks Work Phone: [facility] 09-21-2023 08:20-0400 Body temperature 97.6 [degF] MD Yanna Meeks Work Phone: [facility] 09-21-2023 08:20-0400 Body weight 94.5 kg MD Yanna Meeks Work Phone: [facility] 09-20-2023 11:50-0400 Body height 165.1 cm Riky Titus DO Work Phone: [facility] 09-20-2023 11:50-0400 Body mass index (BMI) [Ratio] 34.68 kg/m2 Riky Titus DO Work Phone: [facility] 09-20-2023 11:50-0400 Body weight 94.53 kg Riky Titus DO Work Phone: [facility] 09-20-2023 11:50-0400 Diastolic blood pressure 76 mm[Hg] Riky Titus DO Work Phone: [facility] 09-20-2023 11:50-0400 Heart rate 62 /min Riky Titus DO Work Phone: [facility] 09-20-2023 11:50-0400 Systolic blood pressure 138 mm[Hg] Riky Titus DO Work Phone: [facility] 07-19-2023 08:33-0400 Body temperature 98.6 [degF] Jeanie Orzech [facility] 07-19-2023 08:33-0400 Respiratory rate 14 /min Jeanie Orzech [facility] 12-07-2022 09:16-0400 Body height 165.1 cm Yanna M Hoy Work Phone: [facility] 250 DO Work Phone: 12-07-2022 09:16-0400 Body mass index (BMI) [Ratio] 33.61 kg/m2 Yanna M Hoy Work Phone: [facility] 250 DO Work Phone: 12-07-2022 09:16-0400 Body surface area Derived from formula 1.99 m2 Yanna M Hoy Work Phone: [facility] 250 DO Work Phone: 12-07-2022 09:16-0400 Body weight 91.63 kg Yanna M Hoy Work Phone: [facility] 250 DO Work Phone: 12-07-2022 09:16-0400 Diastolic blood pressure 82 mm[Hg] Yanna M Hoy Work Phone: [facility] 250 DO Work Phone: 12-07-2022 09:16-0400 Heart rate 60 /min Yanna Iftikhar Hoy Work Phone: [facility] 250 DO Work Phone: 12-07-2022 09:16-0400 Systolic blood pressure 108 mm[Hg] Yanna Iftikhar Hoy Work Phone: [facility] 250 DO Work Phone: 12-08-2021 09:36-0400 Body height 165.1 cm Yanna Iftikhar Hoy Work Phone: [facility] 250 DO Work Phone: 12-08-2021 09:36-0400 Body mass index (BMI) [Ratio] 34.28 kg/m2 Yanna Buitrago Hoy Work Phone: [facility] 250 DO Work Phone: 12-08-2021 09:36-0400 Body surface area Derived from formula 2 m2 Yanna Iftikhar Hoy Work Phone: [facility] 250 DO Work Phone: 12-08-2021 09:36-0400 Body weight 93.44 kg Yanna Buitrago Hoy Work Phone: [facility] 250 DO Work Phone: 12-08-2021 09:36-0400 Diastolic blood pressure 76 mm[Hg] Yanan Iftikhar Hoy Work Phone: [facility] 250 DO Work Phone: 12-08-2021 09:36-0400 Heart rate 64 /min Yanna Iftikhar Hoy Work Phone: [facility] 250 DO Work Phone: 12-08-2021 09:36-0400 Systolic blood pressure 134 mm[Hg] Yanna Meeks Work Phone: [facility] 250 DO Work Phone: Encounters Encounter Date Encounter Type Care Provider Facility Start: 07-09-2025 ambulatory Jeanie Hennessy Facilit y:[facility] Start: 07-08-2024 End: 07-08-2024 ambulatory Jeanie X Orfernando Facility: [place] Start: 07-02-2024 End: 07-02-2024 ambulatory PA-C ODELL MONTOYA Facility:[facility] Start: 07-02-2024 End: 07-02-2024 Patient encounter procedure ODELL MONTOYA [facility] Start: 06-06-2024 End: 06-06-2024 Patient encounter procedure Yanna Meeks MD Work Phone: [facility] Work Phone: Start: 06-06-2024 End: 06-06-2024 ambulatory Yanna Meeks MD Work Phone: [facility] Work Phone: Start: 01-24-2024 End: 01-24-2024 Bamboo flowsheet Dontrell R Dolce DPM FACFAS Work Phone: [facility] Start: 01-24-2024 End: 01-24-2024 Bamboo flowsheet Dontrell R Dolce DPM FACFAS Work Phone: [facility] Start: 01-24-2024 End: 01-24-2024 ambulatory DONTRELL R DOLCE Not Available Start: 01-24-2024 End: 01-24-2024 Office outpatient new 30 minutes Dontrell R Dolce DPM FACFAS Work Phone: [facility] Comment on above: Cellulitis of right toe (Primary Dx); Ingrowing nail, right great toe; Tinea unguium Start: 01-18-2024 ambulatory PA-C ODELL MONTOYA Fac ility:[facility] Start: 12-25-2023 End: 12-25-2023 Office outpatient visit 15 minutes Riky Vergara [facility] Work Phone: [facility] Comment on above: ASHD (arteriosclerot ic heart disease); Other chest pain; Essential hypertension; History of myocardial infarction; History of PTCA; Hyperlipidemia, unspecified hyperlipidemia type; Never smoked tobacco; BMI 34.0-34.9,adult Start: 12-25-2023 End: 12-25-2023 ambulatory [facility] Start: 12-20-2023 End: 12-20-2023 ambulatory Jeanie X Minoo [facility] [place] Start: 12-20-2023 End: 12-20-2023 Patient encounter procedure Jeanie Hennessy [facility] [place] Start: 10-23-2023 End: 10-23-2023 ambulatory [facility] Start: 10-23-2023 End: 10-23-2023 Subsequent hospital visit by physician Roselia Carter Echo/Vasc Room 2 [facility] Comment on above: Other fatigue; Syncope and collapse; Angina pectoris, unstable (Multi); ASHD (arteriosclerotic heart disease); Shortness of breath Start: 09-26-2023 End: 09-26-2023 Patient encounter procedure MD Yanna Meeks Work Phone: [facility]CT Scan [facility] [place] Work Phone: Start: 09-26-2023 End: 09-26-2023 ambulatory MD Yanna Meeks Work Phone: [facility] Work Phone: Start: 09-21-2023 End: 09-21-2023 Admission to same day surgery center MD Yanna Meeks Work Phone: [facility]-Consulting Analyst Work Phone: Start: 09-21-2023 End: 09-21-2023 ambulatory MD Yanna Meeks Work Phone: [facility] Work Phone: Start: 09-20-2023 End: 09-20-2023 Office outpatient visit 40 minutes Riky Mccarthydon DO Work Phone: [facility] Comment on above: Shortness of breath; ASHD (arteriosclerotic heart disease); BRICENO (dyspnea on exertion); Angina, class III (CMS-HCC); History of PTCA Start: 09-20-2023 End: 09-20-2023 ambulatory [facility] Start: 07-19-2023 End: 07-19-2023 Lab Drop off Jeanie X Orzech [facility] Start: 07-19-2023 End: 07-19-2023 Patient encounter procedure Jeanie X Orzech [facility] [place] Start: 07-19-2023 End: 07-19-2023 ambulatory LAURA GALEA Not Available Start: 12-07-2022 Office outpatient vi sit 15 minutes Yanna M Hoy Work Phone: [facility] 250 DO Work Phone: Start: 05-03-2022 Rx Renewal Yanna M Hoy Work Phone: [facility] 250 DO Work Phone: Start: 04-17-2022 Rx Renewal Yanna M Hoy Work Phone: [facility] 250 DO Work Phone: Start: 12-18-2021 End: 12-18-2021 ambulatory SUZE JOHNSON Facility:[facility] Start: 12-14-2021 End: 12-15-2021 ambulatory SUZE JOHNSON Facility:[facility] Start: 12-08-2021 Office outpatient vi sit 15 minutes Yanna M Hoy Work Phone: [facility] [place] 250 DO Work Phone: Start: 10-13-2021 ambulatory SUZE JOHNSON Facility: [facility] Start: 07-08-2021 End: 07-08-2021 ambulatory SUZE [facility] Facility:[facility] Start: 06-29-2021 Rx Renewal Riky harris DO Work Phone: [facility] 250 DO Work Phone: Procedures Date Procedure Procedure Detail Performing Clinician Start: 06-06-2024 Ultrasonography of bilateral kidneys Yanna Meeks MD Work Phone: Start: 09-26-2023 CT angiography of thorax MD Yanna Meeks Work Phone: Start: 09-21-2023 CL [facility] COR Angio (Right) MD Yanna Meeks Work Phone: Start: 09-21-2023 MD Yanna Meeks Work Phone: Start: 05-31-2023 History of percutane ous transluminal coronary angioplasty History of PTCA Riky Titus DO Work Phone: Start: 01-03-2021 Cystoscopic removal of [...] 80% r elief Arthroplasty of knee Yanna Buitrago Hocharlie Work Phone: Cardiac catheterization Daniel Buitrago Hoy Work Phone: Cataract surgery Yanna Buitrago H oy Work Phone: Cholecystectomy Yanna Plascencia y Work Phone: Cholecystectomy Jeanie Orzec h history of cervical vertebral fracture Jeanie Orzech History of percutane ous transluminal coronary angioplasty History of PTCA Yanna Meeks Work Phone: History of percutane ous transluminal coronary angioplasty History of PTCA Riky Titus DO Work Phone: History of percutane ous transluminal coronary angioplasty History of PTCA Riky Titus DO Work Phone: Incision of ovary Yanna Meeks Work Phone: Ligation of fallopian tube A urora Orzech Percutaneous translu trevor coronary angioplasty Jeanie Orzech NEGATED: Highlighted row has not occurred! Total colonoscopy Yanna Meeks Work Phone: Plan of Treatment Date Care Activity Detail Author Start: 02-28-2024 End: 02-28-2024 Patient encounter procedure 02/28/2024 4:30 PM EST Office Visit [facility] [address] [place] [id number] Dontrell Santos, DPM FACFAS [address] [place] [address] [facility] Start: 12-25-2023 End: 12-25-2023 Patient encounter procedure 12/25/2023 2:00 PM EDT Office Visit [facility] [address] [facility] [address] [place] [address] Riky Titus DO [address] [facility] [address] [place] [address] [facility] Start: 11-11-2023 COVID-19 Vaccine ( season) COVID-19 Vaccine ( season) [facility] Start: 11-11-2023 Influenza vaccination Influenza Vacc ine (#1) [facility] Start: 09-21-2023 [facility] Start: 12-07-2022 FUV, Provider: Riky Titus, Status: Pen, Time: 9:10 AM FUV, Provider: Riky Titus, Status: Pen, Time: 9:10 AM [facility] 250 DO Work Phone: Start: 11-10-2022 COVID-19 Vaccine ( season) COVID-19 Vaccine ( season) [facility] Start: 12-08-2021 FUV, Provider: Riky Titus, Status: Pen, Time: 9:30 AM FUV, Provider: Riky Titus, Status: Pen, Time: 9:30 AM [facility] 250 DO Work Phone: Start: 2007 RSV patient s and/or patients aged 60+ years (1 - 1-dose 60+ series) RSV patients and/or patients aged 60+ years (1 - 1-dose 60+ series) [facility] Start: 1997 Zoster Vaccines (1 of 2) Zoster Vacc ira (1 of 2) [facility] Start: 1969 DTaP/Tdap/Td Vaccine s (1 - Tdap) DTaP/Tdap/Td Vaccines (1 - Tdap) [facility] Start: 1965 Diabetes mellitus screening Diabetes Screening [facility] Start: 1965 Hepatitis C screening Hepatitis C [facility] Start: 1947 Lipid panel Lipid Panel [facility] Start: 1945 Medicare Annual Well ness (AWV) Medicare Annual Wellness (AWV) [facility] Start: 1945 Medicare Annual Well ness Visit Medicare Annual Wellness Visit (AWV) [facility] Start: 1945 Screening for osteoporosis Bone Density Scan [facility] Cardiac Catheterizat ion - Onbase Scan Cardiac Catheterization - Onbase Scan Cardiac Cath Routine Shortness of breath BRICENO (dyspnea on exertion) Angina, class III (CMS-HCC) Ordered: 09/20/2023 [facility] Work Phone: Comment on above: Ordered: 09/20/2023 Patient Education Know your Meds [facility] Work Phone: Patient referral [facility] Work Phone: End: 10-23-2023 US.doppler Carotid arteries - bilateral [facility] Work Phone: Comment on above: Once for 1 Occurrenc es starting 10/23/2023 until 10/23/2023 Immunizations Immunization Date Immunization Notes Care Provider Fa shaye 12-14-2021 Covid-19 Non-us Vaccine, Product Unknown Riky Titus DO Work Phone: [facility] 12-14-2021 pneumococcal conjuga te vaccine, 13 valent Yannadominique Plascenciacharlie Work Phone: [facility] 06-21-2020 Katerin COVID-19 Vaccine 0.5 ML Intramuscular Suspension Yanna Meeks Work Phone: [facility] 12-09-2013 influenza virus vaccine, whole virus Yanna Meeks Work Phone: [facility] 250 DO Work Phone: 12-09-2013 pneumococcal polysaccharide vaccine, 23 valent Yanna Meeks Work Phone: [facility] 250 DO Work Phone: 12-09-2013 influenza virus vaccine, unspecified formulation Riky Titus DO Work Phone: [facility] Work Phone: NEGATED: Highlighted row has not occurred!07-19-2023 influenza virus vaccine, unspecified formulation Jeanie Hennessy [facility] Payers Date Payer Category Payer Self-pay [id number] 2023 Medicare (Managed Care) [employer] [id number] 2023 Unknown 2021 Unknown [id number] 1959 Medicare [id number] 1959 Self-pay [id number] 1947 Unknown [id number] [id number]. 2.593 1947 Unknown [id number] 2.16.840.1.086641.3.579. 2.593 1947 Unknown [id number] 2.16.840.1.864192.3.579. 2.593 1947 Unknown [id number] 2.16.840.1.647810.3.579. 2.593 1947 Unknown [id number] 2.16.840.1.257589.3.579. 2.1246 1947 Unknown [id number] 2.16.840.1.311196.3.579. 2.1244 1947 Unknown [id number] 2.16.840.1.706814.3.579. 2.1244 1947 Unknown [id number] 2.16.840.1.311711.3.579. 2.1259 1947 Unknown [id number] 2.16.840.1.345065.3.579. 2.1259 1947 Unknown [id number] 2.16.840.1.913889.3.579. 2.727 1947 Unknown [id number] 2.16.840.1.316493.3.579. 2.727 1947 Unknown [id number] 2.16.840.1.921039.3.579. 2.727 1947 Unknown [id number] 2.16.840.1.836675.3.579. 2.727 1947 Unknown [id number] 2.16.840.1.215458.3.579. 2.727 1947 Unknown [id number] 2.16.840.1.140367.3.579. 2.727 Medicare [id number] Private Health Insurance [facility] [id number] Private Health Insurance [facility] [id number] [address] [place] [address] [id number]. [id number] Unknown [id number] 2.16840.1.382615.3.579. 2.531 Unknown [id number] 2.16840.1.942806.3.579. 2.531 Unknown [id number] 2.16840.1.064735.3.579. 2.531 Social History Date Type Detail Facility Start: 09-20-2023 End: 01-24-2024 Never a smoker Never a smoker [place] [address] DO Work Phone: Comment on above: 12-16 oz soda daily; occasioanlly; Start: 07-19-2023 End: 12-20-2023 Tobacco smoking status Never smoked tobacco (finding) [facility] Tobacco smoking status Never [facility] Start: 09-20-2023 End: 01-24-2024 Sex Assigned At Female [facility] Start: 1945 Sex Assigned At Female [facility] Start: 06-01-2023 End: 01-24-2024 Tobacco use and exposure Smokeless tobacco non-user [facility] Work Phone: Start: 09-20-2023 End: 12-25-2023 Alcoholic beverage intake Current drinker of alcohol (finding) [facility] Work Phone: Start: 12-25-2023 Alcohol Comment occasional [facility] Work Phone: Start: 09-24-2023 Sexual orientation Heterosexual (fin ding) [facility] Work Phone: Start: 09-10-2023 End: 12-25-2023 Exposure to SARS-CoV-2 (event) Not sure [facility] Start: 1945 Sex assigned at Not on file [facility] Work Phone: Start: 12-16-2014 End: 06-07-2024 Sex Female (finding) [facility] Sexual Orientation [facility] Medical Equipment Procedure Code Equipment Code Equipment Origin al Text Equipment Identifier Dates CYSTOSCOPY STENT INSERTION Unknown 11/25/20 Unknown Unknown FDA Start: 11-25-2020 CYSTOSCOPY RETROGRADE STENT INSERTION Juan Carlos MARTIN MD 12/15/20 Unknown Ureter R [id number] FDA Start: 12-15-2020 CYSTOSCOPY STENT INSERTION Unknown 11/25/20 Unknown Unknown FDA Start: 11-25-2020 CYSTOSCOPY STENT INSERTION Unknown 11/25/20 Unknown Unknown FDA Start: 11-25-2020 CYSTOSCOPY STENT INSERTION Unknown 11/25/20 Unknown Unknown FDA Start: 11-25-2020 Goals Date Patient Goal Desired Activity /State Functional Status Date Assessment Result Facility 12-20-2023 Functional Status N/A [facility] 07-19-2023 Functional Status N/A [facility] Clinical Notes 12-14-2021 to 07-08-2024 Dontrell Santos DPM FACFAS - 01/24/2024 1:30 PM Jamey Titus, DO - 12/25/2023 2:00 PM EDTPatient InstructionsRiky Titus, DO - 09/20/2023 11:30 AM EDTPatient InstructionsRadiology Note Date & Type Note Facility 07-08-2024 Note Patient Education Urology Kidney Stones Kidney stones are rock-like masses that form inside of the kidneys. Kidneys are organs that make pee (urine). A kidney stone may move into other parts of the urinary tract, including: ??? The tubes that connect the kidneys to the bladder (ureters). ??? The bladder. ??? The tube that carries urine out of the body (urethra). Kidney stones can cause very bad pain and can block the flow of pee. The stone usually leaves your body through your pee. A doctor may need to take out the stone. What are the causes? Kidney stones may be caused by: ??? Too much calcium in the body. This may be caused by too much parathyroid hormone in the blood. ??? Uric acid crystals in the bladder. The body makes uric acid when you eat certain foods. ??? Narrowing of one or both of the ureters. ??? A kidney blockage that you were born with. ??? Past surgery on the kidney or the ureters. What increases the risk? You are more likely to develop this condition if: ??? You have had a kidney stone in the past. ??? Other people in your family have had kidney stones. ??? You do not drink enough water. ??? You eat a diet that is high in protein, salt (sodium), or sugar. ??? You are very overweight (obese). What are the signs or symptoms? Symptoms of a kidney stone may include: ??? Pain in the side of the belly, right below the ribs. Pain usually spreads to the groin. ??? Needing to pee often or right away. ??? Pain when peeing. ??? Blood in your pee. ??? Feeling like you may vomit (nauseous). ??? Vomiting. ??? Fever and chills. How is this treated? Treatment depends on the size, location, and makeup of the kidney stones. The stones will often pass out of the body when you pee. You may need to: ??? Drink more fluid to help pass the stone. ? In some cases, you may be given fluids through an IV tube at the hospital. ??? Take medicine for pain. ??? Change your diet to help keep kidney stones from coming back. Sometimes, you may need: ??? A procedure to break up kidney stones using a beam of light (laser) or shock waves. ??? Surgery to remove the kidney stones. Follow these instructions at home: Medicines ??? Take ugya-crt-budrmoj and prescription medicines only as told by your doctor. ??? Ask your doctor if the medicine prescribed to you requires you to avoid driving or using machinery. Eating and drinking ??? Drink enough fluid to keep your pee pale yellow. ? You may be told to drink at least 8?10 glasses of water each day. This will help you pass the stone. ??? If told by your doctor, change your diet. You may be told to: ? Limit how much salt you eat. ? Eat more fruits and vegetables. ? Limit how much meat, poultry, fish, and eggs you eat. ??? Follow instructions from your doctor about what you may eat and drink. General instructions ??? Collect pee samples as told by your doctor. You may need to collect a pee sample: ? 24 hours after a stone comes out. ? 8?12 weeks after a stone comes out, and every 6?12 months after that. ??? Strain your pee every time you pee. Use the strainer that your doctor recommends. ??? Do not throw out the stone. Keep it so that it can be tested by your doctor. ??? Keep all follow-up visits. You may need X-rays and ultrasounds to make sure the stone has come out. How is this prevented? To prevent another kidney stone: ??? Drink enough fluid to keep your pee pale yellow. This is the best way to prevent kidney stones. ??? Eat healthy foods. ??? Avoid certain foods as told by your doctor. You may be told to eat less protein. ??? Stay at a healthy weight. Where to find more information ??? National Kidney Foundation (NKF): kidney.org ??? Urology Care Foundation (UCF): urologyhealth.org Contact a doctor if: ??? You have pain that gets worse or does not get better with medicine. Get help right away if: ??? You have a fever or chills. ??? You get very bad pain. ??? You get new pain in your belly. ??? You faint. ??? You cannot pee. This information is not intended to replace advice given to you by your health care provider. Make sure you discuss any questions you have with your health care provider. Document Revised: 10/20/2022 Document Reviewed: 10/20/2022 [employer] Patient Education ? 2023 [employer]. [facility] 06-06-2024 Radiology Diagnostic study note [facility] [place] [address] [place] [address] Ultrasound Report Signed Patient: Delfina Church MR#: [id number] : 1945 Acct:[id number] Age/Sex: 79 / F ADM Date: 5 Loc: Room: Type: [facility] Attending Dr: Jeanie EDMONDS Ordering Provider: KENDAL Anderson Date of Service: 06/06/24 US/US renal BI: N20.0 Copies to: KENDAL Anderson~ BILATERAL RENAL AND BLADDER ULTRASOUND CLINICAL HISTORY: History of kidney stones. COMPARISON: None FINDINGS: Estimation of renal size is approximately 10.98 cm on the right and 11.87 cm onthe left. 5 mm stone right kidney. No hydronephrosis of either kidney. No mass. The urinary bladder is partially distended with a volume of 251.61 ml. No shadowing stone or focal lesion. No significant postvoid residual. US/US renal BI IMPRESSION: RIGHT NEPHROLITHIASIS WITHOUT HYDRONEPHROSIS. Impression dictated by: Jorje Sheridan Jr., D.OLuther06/06/2024 3:50 PM Dictation Location: [place] [address] Tech: Yanely Lee Transcribed By: JUSTYNA 06/06/24 [id number] Dictated By: Jorje Sheridan Jr, DO 06/06/24 1549 Signed By: 06/06/24 [id number] [facility] 01-24-2024 History of Present illness Narrative Patient: Delfina Church : 1945 PCP: Noms Provider MD Cecy SUBJECTIVE This is a 78 y.o. female presents today with a chief complaint of a painful ingrown toenail right foot. The state the pain has been present for several weeks and has progressively worsened. They have attempted trimming the nail back to no avail. They have noticed some erythema in drainage coming from the area. They have attempted soaking the nail and topical antibiotics to no avail. Allergies: No Known Allergies Past Medical History: Past Medical History: Diagnosis Date Hypertension ([facility]/HCC) Medications: Current Outpatient Medications: citalopram (CeleXA) 10 MG tablet, TAKE 1 TABLET BY MOUTH EVERY DAY FOR 30 DAYS, Disp: , Rfl: metoprolol tartrate (Lopressor) 25 MG tablet, TAKE 1 TABLET BY MOUTH TWICE A DAY WITH FOOD FOR 90 DAYS, Disp: , Rfl: diclofenac (Voltaren) 75 MG EC tablet, Take 75 mg by mouth in the morning and 75 mg in the evening., Disp: , Rfl: losartan (Cozaar) 100 MG tablet, TAKE 1 TABLET BY MOUTH EVERY DAY FOR 90 DAYS, Disp: , Rfl: rosuvastatin (Crestor) 40 MG tablet, Take 40 mg by mouth at bedtime, Disp: , Rfl: Review of systems: Constitutional: Denies fever, chills, nausea, vomiting GI: Denies abdominal pain, cramping, loose stool, gastric ulcers Musculoskeletal: Denies low back pain, knee pain, systemic arthritis Neurologic: Denies burning, tingling, transient paralysis OBJECTIVE Physical Examination: DERM: Positive hair growth to b/l feet with good skin turgor noted. Negative openings in skin. The right great toe is incurvated and painful at the nail border. There is mild erythema and drainage noted. Pain on direct palpation of the incurvated border. Localized erythema. No ascending cellulitis or lymphangitis noted. VASC: DP /PT were palpable bilateral. Capillary refill time < 3 seconds Digits 1-5 bilateral NEURO: [place] Jany 5.07 monofilament was intact B/L. Vibratory sensation was intact B/L Musculoskeletal: Muscle strength was +5 over 5 all intrinsic and extrinsic muscles tested. Radiographs: AP/MO/LAT: ASSESSMENT 1. Ingrowing nail, right great toe 2. Tinea unguium PLAN Consent forms for the procedure were signed today. The right digit was anesthetized with 3 cc of 2% lidocaine plain. The digit was prepped and draped in the usual sterile manner. After adequate anesthesia was achieved, we freed the offending nail border from the underlying ungual labia. The nail was cut and removed in toto. Curettage of the nail matrix with a curette I copiously lavaged the area of normal sterile saline. Silvadene 1% was applied to the avulsion site and covered with 4x4s and Coban. Patient tolerated the procedure well. There were dispensed soaking instructions which included soaking the nail in Epson salt and applying topical antibiotics daily. SOLE Krause documented in this encounter [facility] 12-25-2023 History of Present illness Narrative Subjective Delfina Church is a 78 y.o. female Chief Complaint Follow-up; Post-Cath 78-year-old female here for follow-up, had extensive workup for chest discomfort, including stress imaging, subsequent cardiac catheterization, CT chest for to rule out PE and carotid imaging all of which came back normal. Carotid imaging revealed minor less than 50% plaque bilaterally. Left ventricular function is normal Patient has remote history of stenting of the PLV branch. She still has episodic, atypical chest discomfort over the left upper outer quadrant of her pectoral area somewhat reproducible on palpation. She is otherwise reasonably active and not disabled by this nitroglycerin is not really made a dent in her symptomatology. Recommendations, we reviewed all testing with her today. Will follow-up as needed Review of Systems All other systems reviewed and are negative. Vitals: 12/25/23 1419 BP: 148/88 BP Location: Left arm Patient Position: Sitting Pulse: 60 Weight: 94.9 kg (209 lb 3.2 oz) Height: 1.651 m (5' 5 ) Objective Physical Exam Constitutional: Appearance: Normal appearance. HENT: Nose: Nose normal. Neck: Vascular: No carotid bruit. Cardiovascular: Rate and Rhythm: Normal rate. Pulses: Normal pulses. Heart sounds: Normal heart sounds. Pulmonary: Effort: Pulmonary effort is normal. Abdominal: General: Bowel sounds are normal. Palpations: Abdomen is soft. Musculoskeletal: General: Normal range of motion. Cervical back: Normal range of motion. Right lower leg: No edema. Left lower leg: No edema. Skin: General: Skin is warm and dry. Neurological: General: No focal deficit present. Mental Status: She is alert. Psychiatric: Mood and Affect: Mood normal. Behavior: Behavior normal. Thought Content: Thought content normal. Judgment: Judgment normal. Allergies Patient has no known allergies. Current Medications Current Outpatient Medications: acetaminophen (Tylenol Extra Strength) 500 mg tablet, Take 1 tablet (500 mg) by mouth every 6 hours if needed for mild pain (1 - 3)., Disp: , Rfl: aspirin 81 mg EC tablet, Take 1 tablet (81 mg) by mouth once daily., Disp: , Rfl: cholecalciferol (Vitamin D-3) 125 MCG (5000 UT) capsule, Take 1 capsule (125 mcg) by mouth once daily., Disp: , Rfl: diclofenac (Voltaren) 75 mg EC tablet, Take 1 tablet (75 mg) by mouth 2 times a day. Do not crush, chew, or split., Disp: , Rfl: losartan (Cozaar) 100 mg tablet, Take 1 tablet (100 mg) by mouth once daily., Disp: , Rfl: metoprolol tartrate (Lopressor) 25 mg tablet, Take 1 tablet (25 mg) by mouth 2 times a day., Disp: , Rfl: nitroglycerin (Nitro-Dur) 0.4 mg/hr patch, Place 1 patch over 12 hours on the skin once daily., Disp: 90 patch, Rfl: 3 nitroglycerin (Nitrostat) 0.4 mg SL tablet, Place 1 tablet (0.4 mg) under the tongue every 5 minutes if needed for chest pain. May repeat dose every 5 minutes for up to 3 doses total., Disp: 100 tablet, Rfl: 11 rosuvastatin (Crestor) 40 mg tablet, Take 1 tablet (40 mg) by mouth once daily at bedtime., Disp: , Rfl: vit A/vit C/vit E/zinc/copper (PRESERVISION AREDS ORAL), Take 1 tablet by mouth early in the morning.., Disp: , Rfl: Assessment/Plan 1. ASHD (arteriosclerotic heart disease) Follow Up In Cardiology 2. Other chest pain 3. Essential hypertension 4. History of myocardial infarction 5. History of PTCA 6. Hyperlipidemia, unspecified hyperlipidemia type 7. Never smoked tobacco 8. BMI 34.0-34.9,adult Scribe Attestation By signing my name below, I, Kathe Dia RN , Scribe attest that this documentation has been prepared under the direction and in the presence of Riky Titus DO. Provider Attestation - Scribe documentation All medical record entries made by the Scribe were at my direction and personally dictated by me. I have reviewed the chart and agree that the record accurately reflects my personal performance of the history, physical exam, discussion and plan. documented in this encounter [facility] Work Phone: 12-25-2023 Instructions Kathe Dillard RN - 12/25/2023 2:00 PM EDT Please bring all medicines, vitamins, and herbal supplements with you when you come to the office. Prescriptions will not be filled unless you are compliant with your follow up appointments or have a follow up appointment scheduled as per instruction of your physician. Refills should be requested at the time of your visit. BMI was above normal measurement. Current weight: 94.9 kg (209 lb 3.2 oz) Weight change since last visit (-) denotes wt loss 0.8 lbs Weight loss needed to achieve BMI 25: 59.3 Lbs Weight loss needed to achieve BMI 30: 29.3 Lbs Provided instructions on dietary changes Provided instructions on exercise. Follow up ordered as needed only documented in this encounter [facility] Work Phone: 12-20-2023 Hospital Discharge instructions Patient Education 12/20/2023 09:21:22 Dietary Guidelines to Help Prevent Kidney Stones [...] include: ?8 oz (237 mL) of milk, lbyogha-kdlqoqtnifsk-fldhg milk, and calcium-fortifiedfruit juice. Calcium-fortified means that [...] ?Spinach (cooked), rhubarb, beets, sweet potatoes, and Chinese chard. ?Peanuts. ?Potato chips, bruneian fries, and baked potatoes with skin on. ?Nuts and nut products. ?Chocolate. If you regularly take a diuretic medicine, make sure to eat at least 1 or 2 servings of fruits or vegetables that are high in potassium each day. These include: ?Avocado. ?Banana. ?Pinal, prune, carrot, or tomato juice. ?Baked potato. [...] magnesium, fish oil, or vitamin B6. Take ulir-ato-hzdycqp and prescription medicines only as told by [...] Casseroles. Pizza. Lasagna. Frozen meals. Potato chips. [place] fries. The items listed above may not [...] provider. Document Revised: 06/08/2022 Document Reviewed: 06/08/2022 [facility] Patient Education 2023 Boni. Follow Up Care 10/23/2023 10:11:49 With:ERNESTINE Hennessy APRN, Jeanie Crowder, MARSHALL, URL Address: When: Unknown Comments:6 luzmaria SOOD and JOHNNY [facility] Raul 12-20-2023 Note Patient Education Nephrology Dietary Guidelines to Help [...] ? 8 oz (237 mL) of milk, cfnrhtl-jwuxucdrdfen-xrpsf milk, and calcium-fortifiedfruit juice. Calcium-fortified means that [...] Spinach (cooked), rhubarb, beets, sweet potatoes, and Chinese chard. ? Peanuts. ? Potato chips, bruneian fries, and baked potatoes with skin on. ? Nuts and nut products. ? Chocolate. ? If you regularly take a diuretic medicine, make sure to eat at least 1 or 2 servings of fruits or vegetables that are high in potassium each day. These include: ? Avocado. ? Banana. ? Pinal, prune, carrot, or tomato juice. ? Baked [...] fish oil, or vitamin B6. ? Take xeht-frm-uzpchob and prescription medicines only as told by your health care provider. These include suppleme (more content not included)... [facility] 09-21-2023 Procedure note [facility] 09-20-2023 History of Present illness Narrative Subjective Delfina Church is a 78 y.o. female Chief Complaint Follow-up 78-year-old female added on at the end of today's office for new onset chest discomfort over the past month. She gets occasional resting discomfort, exertional discomfort with significant shortness of breath. Family physician ordered Lexiscan stress imaging at [facility]; not under our direction; reviewed by outside reader, revealing small anterior perfusion defect with possible artifact with preserved left ventricular function. However, her symptoms are quite significant with class III plus angina and shortness of breath with exertion which are completely no. She is only a few nitro left and has been taking them sparingly. She does have a history of ASHD her last heart catheterization from 2019 revealed widely patent PLV stent, no other significant disease and normal left ventricular function. She has underlying hypertension remains on appropriate GDMT as reviewed Will initiate Nitro-Dur patch 0.4 mg daily, we have discussed risks, benefits and alternatives and informed decision-making process for 30 minutes this morning and proceed with left heart catheterization based on class III-IV symptomatology and abnormal perfusion imaging with known history of ASHD with revascularization in the past this would qualify for class I indication currently on antianginal therapy. Review of Systems Cardiovascular: Positive for chest pain and dyspnea on exertion. Neurological: Positive for dizziness. All other systems reviewed and are negative. Vitals: 09/20/23 1150 BP: 138/76 BP Location: Left arm Patient Position: Sitting Pulse: 62 Weight: 94.5 kg (208 lb 6.4 oz) Height: 1.651 m (5' 5 ) Objective Physical Exam Constitutional: Appearance: Normal appearance. HENT: Nose: Nose normal. Neck: Vascular: No carotid bruit. Cardiovascular: Rate and Rhythm: Normal rate. Pulses: Normal pulses. Heart sounds: Normal heart sounds. Pulmonary: Effort: Pulmonary effort is normal. Abdominal: General: Bowel sounds are normal. Palpations: Abdomen is soft. Musculoskeletal: General: Normal range of motion. Cervical back: Normal range of motion. Right lower leg: No edema. Left lower leg: No edema. Skin: General: Skin is warm and dry. Neurological: General: No focal deficit present. Mental Status: She is alert. Psychiatric: Mood and Affect: Mood normal. Behavior: Behavior normal. Thought Content: Thought content normal. Judgment: Judgment normal. Allergies Patient has no known allergies. Current Medications Current Outpatient Medications: aspirin 81 mg EC tablet, Take 1 tablet (81 mg) by mouth once daily., Disp: , Rfl: cholecalciferol (Vitamin D-3) 125 MCG (5000 UT) capsule, Take 1 capsule (125 mcg) by mouth once daily., Disp: , Rfl: diclofenac (Voltaren) 75 mg EC tablet, Take 1 tablet (75 mg) by mouth 2 times a day. Do not crush, chew, or split., Disp: , Rfl: losartan (Cozaar) 100 mg tablet, Take 1 tablet (100 mg) by mouth once daily., Disp: , Rfl: metoprolol tartrate (Lopressor) 25 mg tablet, Take 1 tablet (25 mg) by mouth 2 times a day., Disp: , Rfl: rosuvastatin (Crestor) 40 mg tablet, Take 1 tablet (40 mg) by mouth once daily at bedtime., Disp: , Rfl: Assessment/Plan 1. Shortness of breath 2. ASHD (arteriosclerotic heart disease) 3. BRICENO (dyspnea on exertion) 4. Angina, class III (CMS-HCC) 5. History of PTCA Scribe Attestation By signing my name below, IFabienne LPN, Scribe attest that this documentation has been prepared under the direction and in the presence of Riky Titus DO. Provider Attestation - Scribe documentation All medical record entries made by the Scribe were at my direction and personally dictated by me. I have reviewed the chart and agree that the record accurately reflects my personal performance of the history, physical exam, discussion and plan. documented in this encounter [facility] Work Phone: 09-20-2023 Instructions Fabienne Elizalde LPN - 09/20/2023 11:30 AM EDT Please bring all medicines, vitamins, and herbal supplements with you when you come to the office. Prescriptions will not be filled unless you are compliant with your follow up appointments or have a follow up appointment scheduled as per instruction of your physician. Refills should be requested at the time of your visit. BMI was above normal measurement. Current weight: 94.5 kg (208 lb 6.4 oz) Weight change since last visit (-) denotes wt loss 6.4 lbs Weight loss needed to achieve BMI 25: 58.5 Lbs Weight loss needed to achieve BMI 30: 28.5 Lbs Advised to Increase physical activity. documented in this encounter [facility] Work Phone: 07-19-2023 Evaluation + Plan note Diagnostic Tests PendingCalculi Analysis Urinary 07/19/23 [facility] 07-19-2023 Hospital Discharge instructions Patient Education 07/19/2023 09:33:06 Hematuria, Adult [...] Follow these instructions at home: Medicines Take enyh-wge-ldbjdmj and prescription medicines only as told by [...] or the blood stops without treatment. Take rooo-kpl-izayqda and prescription medicines only as told by your health care provider. Drink enough fluid to keep your urine pale yellow. This information is not intended to replace advice given to you by your health care provider. Make sure you discuss any questions you have with your health care provider. Document Revised: 10/27/2020 Document Reviewed: 10/27/2020 [facility] Patient Education 2022 Boni. 07/19/2023 09:33:04 Dietary Guidelines to Help Prevent [...] include: ?8 oz (237 mL) of milk, zcwjevv-yedbnjqcaxqs-qibxt milk, and calcium-fortifiedfruit juice. Calcium-fortified means that [...] ?Spinach (cooked), rhubarb, beets, sweet potatoes, and Chinese chard. ?Peanuts. ?Potato chips, bruneian fries, and baked potatoes with skin on. ?Nuts and nut products. ?Chocolate. If you regularly take a diuretic medicine, make sure to eat at least 1 or 2 servings of fruits or vegetables that are high in potassium each day. These include: ?Avocado. ?Banana. ?Pinal, prune, carrot, or tomato juice. ?Baked potato. [...] magnesium, fish oil, or vitamin B6. Take iyic-haf-vxdnoex and prescription medicines only as told by [...] Casseroles. Pizza. Lasagna. Frozen meals. Potato chips. [place] fries. The items listed above may not [...] provider. Document Revised: 06/08/2022 Document Reviewed: 06/08/2022 [facility] Patient Education 2022 Boni. 07/19/2023 09:33:01 Kidney Stones, Olfl-co-Cawa Kidney Stones Kidney stones are rock-like masses [...] Follow these instructions at home: Medicines Take kajl-jnq-feyfkdn and prescription medicines only as told by [...] provider. Document Revised: 10/31/2021 Document Reviewed: 10/31/2021 [facility] Patient Education 2022 Boni. Follow Up Care 07/12/2023 16:10:30 With:ERNESTINE Hennessy APRN, Jeanie Crowder, MARSHALL, URL Address: When: Unknown Comments:4 mos w/ perez [facility] 12-18-2021 Note PROCEDURE: XR TIB_FI B RT [...] authenticated by: RAMEZ CHAN Date: 2021-12-18 14:22 [facility] 12-14-2021 Note PROCEDURE: XR KNEE R T [...] authenticated by: RAMEZ CHAN Date: 2021-12-14 11:57 [facility] Evaluation + Plan note No data available for this section [facility] Evaluation + Plan note Future Appointments Appointment Date:07/08/2024 12:30:00 PM Scheduled Provider:ERNESTINE Hennessy APRN, Jeanie Crowder Location:[facility] Appointment Type:URO Office Visit Future Scheduled TestsXR Abdomen 1 View 07/02/24 [facility] Evaluation note No assessment inform ation available [facility] Work Phone: Evaluation note Diagnosis ASHD (arteriosclerotic heart disease) Coronary atherosclerosis of unspecified type of vessel, [place] or graft Other chest pain Essential hypertension Unspecified essential hypertension History of myocardial infarction History of PTCA Postsurgical percutaneous transluminal coronary angioplasty status Hyperlipidemia, unspecified hyperlipidemia type Never smoked tobacco BMI 34.0-34.9,adult documented in this encounter [facility] Work Phone: Evaluation note* Diagnosis Cellulitis of right toe- Primary Ingrowing nail, right great toe Ingrowing nail Tinea unguium Dermatophytosis of nail [facility] Diagnosis Shortness of breath ASHD (arteriosclerotic heart disease) Coronary atherosclerosis of unspecified type of vessel, [place] or graft BRICENO (dyspnea on exertion) Other dyspnea and respiratory abnormality Angina, class III (CMS-HCC) Other and unspecified angina pectoris History of PTCA Postsurgical percutaneous transluminal coronary angioplasty status documented in this encounter [facility] Work Phone: Evaluation note* Diagnosis Other fatigue Syncope and collapse Angina pectoris, unstable (Multi) Intermediate coronary syndrome ASHD (arteriosclerotic heart disease) Coronary atherosclerosis of unspecified type of vessel, [place] or graft Shortness of breath documented in this encounter [facility] Work Phone: Hospital Discharge instructions No data available [facility] this [facility] Additional Instructions 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 4. ACTIVITY: You are advised to [...] bottle, follow the instructions on the bottle. [facility] is not responsible for incorrect prescription information provided by the patient during their visit. Do not stop your medications without consulting your health care provider. Please take the list with you to your next doctor's appointment.[facility] Work Phone: Progress note No data available for this section [facility] Reason for referral (narrative)* Consultation (Routine) - Authorized Specialty Diagnoses / Procedures Referred By Keo costa Referred To Contact Cardiology Diagnoses ASHD (arteriosclerotic heart disease) Procedures Follow Up In Cardiology Riky Titus DO [address] [place] [address] 2, [address] [address] Riky Titus DO [address] [facility] 2, [address] [address] Referral ID Status Reason Start Date Expiration Date V isits Requested Visits Authorized [id number] Authorized 09/20/2023 09/19/2024 1 1 [facility] Work Phone: Chief Complaint * DELFINA CHURCH is being [...] Response Recorded Date/ Time Advance Directives No Brie 10th, 20 20 10:02am Chief Complaint and Reason for Visit Chief Complaint Shortness of Breath Chief Complaint Shortness of Breath sob angina syncope Chief Complaint Admit Date N20.0 June 06, 2024 2:4 0pm Reason for Referral Specialty Diagnoses / Procedures Referred By Keo costa Referred To Contact Cardiology Diagnoses Other fatigue Syncope and collapse Angina pectoris, unstable (Multi) ASHD (arteriosclerotic heart disease) Shortness of breath Procedures Vascular US Carotid Artery Duplex Bilateral Riky Titus DO [address] [facility] [address], [address] [place] [address] Referral ID Status Reason Start Date Expiration Date Visits Requested Visits Authorized [id number] Authorized Perform Procedure 09/21/2023 09/20/2024 1 1 Additional Source Comments INFORMATION SOURCE (unrecogn ized section and content) DATE CREATED AUTHOR 12/19/2021 [facility] DATE CREATED AUTHOR AUTHOR'S ORGANIZ ATION 10/28/2023 [facility] DATE CREATED AUTHOR AUTHOR'S ORGANIZ ATION 12/27/2023 [facility] DATE CREATED AUTHOR AUTHOR'S ORGANIZ ATION 01/27/2024 [facility] EP[facility] DATE CREATED AUTHOR AUTHOR'S ORGANIZ ATION 06/05/2024 [facility] DATE CREATED AUTHOR AUTHOR'S ORGANIZ ATION 06/08/2024 [facility] DATE CREATED AUTHOR AUTHOR'S ORGANIZ ATION 07/15/2024 [facility] Patient Care team informatio n (unrecognized section and content) Team Status: Active Member Role Status Dates Yanna Meeks MD Primary Care Provider Active Team Status: Inactive Member Role Status Dates Yanna Meeks MD Primary Care Provider Active Start: September 21, 2023 End: September 21, 2023 Sandrita Titus DO Attending Provider Active S tart: September 21, 2023 End: September 21, 2023 Team Status: Inactive Member Role Status Dates Yanna Meeks MD Primary Care Provider Active Start: September 26, 2023 End: September 26, 2023 Sandrita Titus DO Attending Provider Active S tart: September 26, 2023 End: September 26, 2023 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 Start Date End Date Yanna Meeks MD [address] [place] [address] PCP - General 12/08/21 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 Start Date End Date Unallocated, Mark Bass MD [address] [place] [address] PCP - General Family Medicine 01/23/24 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 Start Date End Date Unallocated, Mark Bass MD [address] [place] [address] PCP - General Family Medicine 01/23/24 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 Start Date End Date Yanna Meeks MD [address] [place] [address] PCP - General 12/08/21 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 Start Date End Date Yanna Meeks MD [facility] [place] [address] PCP - General 12/08/21 Team Status: Inactive Member Role Status Dates Yanna Meeks MD Primary Care Provider Active Start: June 06, 2024 End: June 06, 2024 Jeanie Hennessy [facility] Attending Provider Active Start: June 06, 2024 End: June 06, 2024 Reason for Visit (unrecogniz ed section and content) Reason Comments Follow-up Post-Cath Specialty Diagnoses / Procedures Referred By Keo t Referred To Contact Cardiology Diagnoses ASHD (arteriosclerotic heart disease) Procedures Follow Up In Cardiology Riky Titus, [address] [place] [address] 2, [address] [place] [address] Riky Titus, [address] [facility] [address], [address] [place] [address] Referral ID Status Reason Start Date Expiration Date V isits Requested Visits Authorized [id number] Authorized 09/20/2023 09/19/2024 1 1 Reason Comments Toenail Problem RT grt nail fungal Reason Comments Follow-up Sooner ov-abn stress test Specialty Diagnoses / Procedures Referred By Contac t Referred To Contact Cardiology Diagnoses Other fatigue Syncope and collapse Angina pectoris, unstable (Multi) ASHD (arteriosclerotic heart disease) Shortness of breath Procedures Vascular US Carotid Artery Duplex Bilateral Riky Titus, DO [address] [facility] [address], [address] [place] [address] Referral ID Status Reason Start Date Expiration Date Visits Requested Visits Authorized [id number] Authorized Perform Procedure 09/21/2023 09/20/2024 1 1 Goals (unrecognized section and content) Goals may be documented in a n alternate section FOR RECORDS PERTAINING TO PATIENTS WHO ARE [...] BE BASED ON THE PRIMARY CLINICAL RECORDS. [employer] provides no warranty or guarantee of the accuracy or completeness of information in this document.
--- NOTE | 2024-11-20 09:33 | XR_ITS ---
[place] [id number] Patient Name: DELFINA GONZALEZ MRN: [id number] date: 1945 Sex: F Assigned Patient Location: [facility] Current Patient Location: [facility] Accession/Order Number: [id number] Exam Date: 11/20/2024 09:35 Report Date: 11/20/2024 10:16 At the request of: SUZE JOHNSON Procedure: XR knee LT 3V 3 views left knee plain film COMPARISON: None HISTORY: Left knee pain laterally. 2 weeks duration. Prior fall. ACUTE FINDINGS: No acute displaced fracture DEGENERATIVE CHANGE: Moderate medial joint space narrowing with large marginal spurs SOFT TISSUE FINDINGS: Atherosclerosis JOINT EFFUSION: None POSTOP CHANGES: None BONE MINERALIZATION: Adequate XR/XR knee LT 3V IMPRESSION: Moderate medial degeneration Impression dictated by: Niko Dickson M.D. 11/20/2024 10:16 AM Dictation Location: [place] [address] Electronically authenticated by: [id number] Y Date: 11/20/2024 10:16
== END 2024-11-20 09:25 | disposition home or self-care (01) ==
LOC: RAD 09:26
PROVIDERS: PCP Nurse Practitioner Family; Visit Provider Nurse Practitioner Family
DX: M17.12 Unilateral primary osteoarthritis, left knee (principal); W19.XXXA Unspecified fall, initial encounter
CPT/HCPCS: 73562